=== PATIENT | female | born 1990 | race Caucasian/White ===

== ENCOUNTER 2019-06-06 18:20 | Emergency (ER) | payer SELFPAY ==
--- NOTE | 2019-06-06 19:44 | RAD REPORT ---
EXAM DESCRIPTION: CT - Facial Bones W/ Mpr - 06/06/2019 7:31 pm CLINICAL HISTORY: Facial injury TECHNIQUE: Computed axial tomography of the face was obtained. Coronal and sagittal reconstruction w as performed. All CT scans are performed using dose optimization technique as appropriate and may include automated exposure control or mA/KV adjustment according to patient size. FINDINGS: A fracture is not seen. A TMJ dislocation is not noted. Deviation of the nasal septum The globes are intact. Fluid within the sinuses is not seen. IMPRESSION: Negative for a facial fracture.
--- NOTE | 2019-06-06 19:49 | RAD REPORT ---
EXAM DESCRIPTION: CT - Head C Spine Mpr Wo Con - 06/06/2019 7:31 pm CLINICAL HISTORY: Head and neck injury status post fall. Head and neck pain COMPARISON: None. TECHNIQUE: Computed axial tomography of the head and cervical spine was obtained. Sagittal and coronal reconstruction was performed. All CT scans are performed using dose optimization technique as appropriate and may include automated exposure control or mA/KV adjustment according to patient size. FINDINGS: An intracranial bleed is not seen. The ventricles are normal in caliber. An extra-axial fl uid collection is not noted.Fluid within the visualized sinuses and mastoids is not seen A cervical fracture is not visualized. No dislocation is noted. Cerebellar tonsillar ectopia is prese nt IMPRESSION: No acute intracranial abnormality is seen. Cerebellar tonsillar ectopia A cervical fracture is not visualized. If the patient continues to have symptoms to suggest intracra nial /spinal cord pathology then MRI would be recommended
--- NOTE | 2019-06-06 20:00 | ER ---
Nurse's Notes [facility] Name: Cora Marquez Age: 29 yrs Sex: Female : 1990 Arrival Date: 06/06/2019 Time: 18:25 Bed 28 Private MD: Diagnosis: Unspecified injury of head;Jaw pain Presentation: 06/06 18:27 Presenting complaint: Patient states: i tripped over a cord and fell and hit a bed post hj and L side of the face and head and im not sure if i passed out but i blacked out for couple of seconds, my L jaw and inner ear hurts; pain is 9/10; denies N/V;. Transition of care: patient was not received from another setting of care. Onset of symptoms was June 06, 2019. Risk Assessment: Do you want to hurt yourself or someone else? Patient reports no desire to harm self or others. Initial Sepsis Screen: Does the patient meet any 2 criteria? No. Patient's initial sepsis screen is negative. Does the patient have a suspected source of infection? No. Patient's initial sepsis screen is negative. Care prior to arrival: None. 18:27 Method Of Arrival: Ambulatory 18:27 Acuity: MARYANA 3 18:30 Mechanism of Injury: Fall. Trauma event details: Injury occurred in the [place] [facility], Injury occurred: at home. Injury occurred: June 06, 2019 Injury occurred at: 18:15. Triage Assessment: 19:20 General: Appears in no apparent distress. Pain: Denies pain. 19:20 General: Behavior is calm, cooperative, appropriate for age. 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 - Social history:: Smoking status: Patient/guardian denies using tobacco. - Ebola Screening: : Patient negative for fever greater than or equal to 101.5 degrees Fahrenheit, and additional compatible Ebola Virus Disease symptoms Patient denies exposure to infectious person. Screenin:30 Abuse screen: Denies threats or abuse. Denies injuries from another. Nutritional wh screening: No deficits noted. Tuberculosis screening: No symptoms or risk factors identified. Fall Risk Fall in past 12 months (25 points). Assessment: 19:40 General: Appears in no apparent distress. Behavior is calm, cooperative, appropriate wh for age. Pain: Denies pain. 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 Cardiovascular: Capillary refill < 3 seconds. Respiratory: Airway is patent Respiratory effort is even, unlabored, Respiratory pattern is regular, symmetrical. GI: Abdomen is flat, non-distended. : No signs and/or symptoms were reported regarding the genitourinary system. EENT: No signs and/or symptoms were reported regarding the EENT system. Derm: Skin is intact, is healthy with good turgor, Skin is pink, warm \T\ dry. normal. Musculoskeletal: Range of motion: intact in all extremities. Vital Signs: 18:31 BP 105 / 65; Pulse 71; Resp 18; Temp 97.5(TE); Pulse Ox 100% on R/A; Weight 81.65 kg; Height 5 ft. 5 in. (165.10 cm); Pain 9/10; 19:15 BP 93 / 69; Pulse 65; Resp 18; Pulse Ox 98% on R/A; wh 18:31 Body Mass Index 29.95 (81.65 kg, 165.10 cm) ED Course: 18:25 Patient arrived in ED. mr 18:29 Triage completed. 18:30 Arm band placed on left wrist. 18:33 Vitaly Ronquillo PA is PHCP. [facility] 18:33 Felice Lyons MD is Attending Physician. [facility] 19:01 Santy Neal is Primary Nurse. 19:20 Patient has correct armband on for positive identification. Bed in low position. Call wh light in reach. Side rails up X 1. Pulse ox on. NIBP on. 19:31 CT Head C Spine In Process Unspecified. EDMS 19:31 CT Facial Bones W/O Con In Process Unspecified. EDMS 20:11 No provider procedures requiring assistance completed. Patient did not have IV access wh during this emergency room visit. Administered Medications: No medications were administered Outcome: 19:59 Discharge ordered by . robert 20:15 Patient left the ED. wh Signatures: Dispatcher [employer] EDMS Vitaly Ronquillo PA PA jmm RiveraRosa Maria mr Michael Eduardo RN RN Santy Means Corrections: (The following items were deleted from the chart) 18:32 18:31 Pulse 71bpm; Resp 18bpm; Pulse Ox 100% RA; Temp 97.5F Temporal; 81.65 kg; Height hj 5 ft. 5 in.; BMI: 29.9; Pain 9/10; hj
--- NOTE | 2019-06-06 20:00 | EDPHYS ---
Physician Documentation [facility] Name: Cora Marquez Age: 29 yrs Sex: Female : 1990 Arrival Date: 06/06/2019 Time: 18:25 Bed 28 Private MD: ED Physician Felice Lyons HPI: 06/06 18:50 This 29 yrs old Female presents to ER via Ambulatory with complaints of Fall jmm Injury, Headache. 18:50 Details of fall: The patient fell from an upright position, while walking. Onset: The jmm symptoms/episode began/occurred acutely, just prior to arrival. Associated injuries: The patient sustained injury to the head. The patient has not experienced similar symptoms in the past. Patient states she tripped hitting the left side of her head against a bed post. Unsure of LOC. . 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 - Social history:: Smoking status: Patient/guardian denies using tobacco. - Ebola Screening: : Patient negative for fever greater than or equal to 101.5 degrees Fahrenheit, and additional compatible Ebola Virus Disease symptoms Patient denies exposure to infectious person. ROS: 18:50 Constitutional: Negative for fever, chills, and weight loss, Cardiovascular: Negative jmm for chest pain, palpitations, and edema, Respiratory: Negative for shortness of breath, cough, wheezing, and pleuritic chest pain. 18:50 Back: Negative for injury and pain. 18:50 ENT: Positive for jaw pain. 18:50 Neuro: Positive for headache. 18:50 All other systems are negative. Exam: 18:50 ENT: Moist Mucus Membranes Neck: Trachea midline, Supple Chest/axilla: Normal chest jmm wall appearance and motion. Cardiovascular: Regular rate and rhythm. No edema appreciated Respiratory: Normal respirations, no respiratory distress appreciated Abdomen/GI: Non distended, soft Back: Normal ROM Skin: General appearance color normal MS/ Extremity: Moves all extremities, no obvious deformities appreciated, no edema noted to the lower extremities Neuro: Awake and alert, normal gait Psych: Behavior is normal, Mood is normal, Patient is cooperative and pleasant 18:50 Constitutional: The patient appears in no acute distress, alert, awake. 18:50 Head/face: left sided jaw pain on palpation, FROM appreciated, no obvious deformity appreciated. Vital Signs: 18:31 BP 105 / 65; Pulse 71; Resp 18; Temp 97.5(TE); Pulse Ox 100% on R/A; Weight 81.65 kg; hj Height 5 ft. 5 in. (165.10 cm); Pain 9/10; 19:15 BP 93 / 69; Pulse 65; Resp 18; Pulse Ox 98% on R/A; wh 18:31 Body Mass Index 29.95 (81.65 kg, 165.10 cm) hj MDM: 18:50 Patient medically screened. [facility] 19:57 Data reviewed: vital signs, nurses notes. Counseling: I had a detailed discussion with [facility] the patient and/or guardian regarding: the historical points, exam findings, and any diagnostic results supporting the discharge/admit diagnosis, radiology results, the need for outpatient follow up, to return to the emergency department if symptoms worsen or persist or if there are any questions or concerns that arise at home. ED course: Patient is alert and non toxic in appearance. No acute findings on CT. Patient is given head injury return precautions. Patient understood and agrees with the plan of care. . 06/06 18:58 Order name: CT Head C Spine; Complete Time: 19:55 [facility] 06/06 18:58 Order name: CT Facial Bones W/O Con; Complete Time: 19:55 [facility] Administered Medications: No medications were administered Disposition: 06/07 07:34 Co-signature as Attending Physician, Felice Lyons MD I agree with the assessment and kdr plan of care. Disposition: 06/06/19 19:59 Discharged to Home. Impression: Unspecified injury of head, Jaw pain. - Condition is Stable. - Discharge Instructions: Head Injury, Adult, Jaw Contusion. - Prescriptions for orphenadrine citrate 100 mg Oral Tablet Sustained Release - take 1 tablet by ORAL route 2 times per day As needed; 20 tablet. - Medication Reconciliation Form, Thank You Letter, Antibiotic Education, Prescription Opioid Use form. - Follow up: Private Physician; When: 2 - 3 days; Reason: Recheck today's complaints, Continuance of care, Re-evaluation by your physician. Signatures: Dispatcher [employer] EDMS Felice Lyons MD MD kdr Mickail, Joel, PA PA jmm Joaquin, Henry, RN RN Santy Neal Corrections: (The following items were deleted from the chart) 06/06 20:15 19:59 06/06/2019 19:59 Discharged to Home. Impression: Unspecified injury of head; Jaw wh pain. Condition is Stable. Forms are Medication Reconciliation Form, Thank You Letter, Antibiotic Education, Prescription Opioid Use. Follow up: Private Physician; When: 2 - 3 days; Reason: Recheck today's complaints, Continuance of care, Re-evaluation by your physician. robert
[2019-06-06 20:22] VITALS: TEMP 97.5
[2019-06-06 20:24] VITALS: BP 93/69; O2SAT 98
== END 2019-06-06 20:15 | disposition home or self-care (01) ==
LOC: ER 18:20
DX: S09.90XA Unspecified injury of head, initial encounter (principal); W01.190A Fall on same level from slipping, tripping and stumbling with subsequent striking against furniture, initial encounter; Y93.89 Activity, other specified; Y92.9 Unspecified place or not applicable; R68.84 Jaw pain; F41.9 Anxiety disorder, unspecified; F32.9 Major depressive disorder, single episode, unspecified; G40.909 Epilepsy, unspecified, not intractable, without status epilepticus; Z91.018 Allergy to other foods
CPT/HCPCS: 70450; 70486; 72125; 76377; 99283

== ENCOUNTER 2020-06-01 00:36 | Emergency (ER) | payer BC ==
--- OUTSIDE RECORDS SUMMARY | 2020-06-01 00:40 | XMS REPORT | Continuity of Care Document ---
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) Medications Medication Details Route Status Patient Ordering Order Source Instructions Provider Date Levetiracetam See Active [facility] 500 MG Oral Instructions 019 Neuro Tablet , TAKE 3 TABLETS BY MOUTH EVERY MORNING AND 4 TABLETS EVERY EVENING, # 210 tab, 5 Refill(s), Pharmacy: [facility] #[id number] lamotrigine 200 = 1 tab, PO, Active Mis vitor MG Oral Tablet BID, # 60 019 Neuro tab, 5 Refill(s), Pharmacy: [facility] #[id number] Escitalopram 20 20 mg = 1 Active Mische r MG Oral Tablet tab, PO, 019 Neuro [Lexapro] Daily, # 30 tab, 5 Refill(s), Pharmacy: [facility] #[id number] Levetiracetam See Active [facility] 500 MG Oral Instructions 019 Neuro Tablet , TAKE 3 TABLETS BY MOUTH EVERY MORNING AND 4 TABLETS BY MOUTH EVERY EVENING, # 210 tab, 6 Refill(s), Pharmacy: [facility] [id number] lamotrigine 200 See Active [facility] MG Oral Tablet Instructions 019 Neur o , TAKE 1 TABLET BY MOUTH TWICE DAILY, # 60 tab, 7 Refill(s), Pharmacy: [facility] [id number] Levetiracetam See No Longer [facility] 500 MG Oral Instructions Active 018 Neuro Tablet , # 210 tab, TAKE 3 TABLETS BY MOUTH EVERY MORNING AND 4 TABLETS BY MOUTH EVERY EVENING, Pharmacy: [facility] [id number] Levetiracetam See No Longer [facility] 500 MG Oral Instructions Active 018 Neuro Tablet , # 210 tab, Refill(s) 1, TAKE 3 TABLETS BY MOUTH EVERY MORNING AND 4 TABLETS BY MOUTH EVERY EVENING, Pharmacy: [facility] [id number] lamotrigine 200 See No Longer Mische r MG Oral Tablet Instructions Active 018 Neur o , # 214 tab, Refill(s) 1, TAKE 1 TABLET BY MOUTH TWICE DAILY, Pharmacy: [facility] [id number] Allergies, Adverse Reactions, Alerts Substance Category Reaction Severity Reaction Status Date Comments S ource type Reported No Known Assertion Drug Misch er Medication allergy Neuro Allergies Immunizations No Data Provided for This Section Results Order Name Results Value Reference Date Interpretation Comments Jaida rce Range CHEM PANEL BUN 12 7 - 25 12/15 Neuro CHEM PANEL Glucose Lvl 57 65 - 99 12/15 Result Comment: Neuro
Fasting reference interval<br/ >

Lab test performed by:
[facility]
[address]
[place] [address]<b r/>Arleen Davila CHEM PANEL ALANINE 12 6 - 29 12/15 [facility] AMINO Neuro ASE CHEM PANEL ASPARTATE 11 10 - 30 12/15cher TRANSAMINASE Neuro CHEM PANEL CO2 29 20 - 32 12/15 Mis Neuro CHEM PANEL Total Protein 7.0 6.1 - 8.1 12/15 Misch er /2018 Neuro CHEM PANEL Albumin Lvl 4.3 3.6 - 5.1 12/15 Neuro CHEM PANEL Creatinine 0.78 0.50 - 12/15 [facility] Lvl 1.10 Neuro CHEM PANEL eGFR NON-AFR. 104 > OR = 60 12/15 Misch er [place] mL/min/1. Neuro 3m2 CHEM PANEL eGFR 121 > OR = 60 12/15 Mische r [place] mL/min/1. Neuro 3m2 CHEM PANEL Globulin 2.7 1.9 - 3.7 12/15 [facility] Neuro CHEM PANEL A/G Ratio 1.6 1.0 - 2.5 12/15 [facility] Neuro CHEM PANEL Alk Phos 73 33 - 115 12/15 [facility] Neuro CHEM PANEL Bili Total 0.3 0.2 - 1.2 12/15 Neuro CHEM PANEL Sodium Lvl 140 135 - 146 12/15 Neuro CHEM PANEL B/C Ratio NOT 6 - 22 12/15cher Neuro CHEM PANEL Potassium Lvl 4.0 3.5 - 5.3 12/15 Misch Neuro CHEM PANEL Chloride Lvl 103 98 - 110 12/15 Neuro CHEM PANEL Calcium Lvl 9.4 8.6 - 10.2 12/15che r Neuro HEMATOLOGY Eosinophils 3.5 12/15 Neuro HEMATOLOGY Basophils 0.7 12/15 Neuro HEMATOLOGY Monocytes 6.5 12/15 Neuro HEMATOLOGY MCHC 33.3 32.0 - 12/15cher 36.0 Neuro HEMATOLOGY MCH 27.3 27.0 - 12/15cher 33. Neuro HEMATOLOGY RDW 14.4 11.0 - 12/15cher 15.0 Neuro HEMATOLOGY Platelet 234 140 - 400 12/15 Neuro HEMATOLOGY Neutrophils # 7137 1500 - 12/15cher 780 Neuro HEMATOLOGY Lymphocytes # 2775 850 - 3900 12/15 Misc Neuro HEMATOLOGY Monocytes # 722 200 - 950 12/15 Neuro HEMATOLOGY MPV 11.5 7.5 - 12.5 12/15 Neuro HEMATOLOGY Eosinophils # 389 15 - 500 12/15che Neuro HEMATOLOGY Basophils # 78 0 - 200 12/15 Neuro HEMATOLOGY WBC X 10x3 11.1 3.8 - 10.8 12/15 Result Comment: Neuro
Lab test performed by:
[facility]
[address]
[place] [address]<b r/>Arleen Davila HEMATOLOGY Lymphocytes 25.0 12/15 Neuro HEMATOLOGY Segs 64.3 12/15 Neuro HEMATOLOGY Hgb 14.1 11.7 - 12/15cher 15.5 Neuro HEMATOLOGY RBC X 10x6 5.16 3.80 - 12/15 [facility] 5.10 Neuro HEMATOLOGY MCV 82.2 80.0 - 12/15cher 100.0 Neuro HEMATOLOGY Hct 42.4 35.0 - 12/15 [facility] 45.0 /2019 Neuro TOXICOLOGY Lamotrigine 10.2 4.0 - 18.0 12/15 Result Mische r Lvl Comment: Neuro This test was developed and its analytical performance
charact eristics have been determined by [employer]
Cristian Chavez. It has not been cleared or approved by the [place]
Food and Drug Administrati on. This assay has been validated
purs uant to the CLIA regulations and is used for clinical
purpose s.
FASTI NG:YES
< br/>FASTING: YES

Lab test performed by:
[facility]<br/ >[id number] [place] [address]<b r/>Tenzin Soto M.D., Ph.D Pathology Reports No Data Provided for This Section Diagnostic Reports No Data Provided for This Section Consultation Notes No Data Provided for This Section Discharge Summaries No Data Provided for This Section History and Physicals No Data Provided for This Section Vital Signs Vital Sign Value Date Comments Source Systolic (mm Hg) 98 09/25/2019 [facility] [place] [place] Claire ro Diastolic (mm Hg) 69 09/25/2019 [facility] [place] [place] Ne uro Heart Rate 67 09/25/2019 [facility] [place] [place] Neuro Respitory Rate 16 09/25/2019 [facility] [place] [place] Neuro Height 170.18 cm 09/25/2019 [facility] [place] [place] Neuro Weight 89.545 09/25/2019 [facility] [place] [place] Neuro BMI Calculated 30.92 09/25/2019 [facility] [place] [place] Neuro Heart Rate 69 12/20/2018 [facility] [place] [place] Neuro Systolic (mm Hg) 103 12/20/2018 [facility] [place] [place] Claire ro Diastolic (mm Hg) 73 12/20/2018 [facility] [place] [place] Ne uro Weight 85.909 12/20/2018 [facility] [place] [place] Neuro BMI Calculated 31.52 12/20/2018 [facility] [place] [place] Neuro Height 165.1 cm 12/20/2018 [facility] [place] [place] Neuro Encounters Location Location Encounter Encounter Reason Attending ADM DC Stat us Source Details Type Number For Provider Date Date Visit Outpatient [id number] SAMUEL 06/08 Active [facility] [place] Outpatient [id number] SAMUEL 12/14 [facility] [place] [facility] Ambulatory [id number] Samuel 12/14 12/14 [facility] Out[facility] [id number] SAMUEL 12/20 Active [facility] [place] [facility] Outpatient [id number] Samuel 12/20 12/21 [facility] Outpatient [id number] SAMUEL 06/19 Active [facility] [place] [facility] Ambulatory [id number] Samuel 06/19 06/19 [facility] Pre-[facility] Outpatient [id number] Samuel 08/17 Active [facility] [place] [facility] [id number] Sma[facility]/17 [facility] [id number] Samuel 09/25 Active [facility] [place] [facility] [id number] Samuel 09/25 [facility] [id number] 12/28 12/30 [facility] Neurology Medical /2019 Neuro [facility] Outpatient [id number] Samuel 06/17 Active [facility] [place] Outpatient [id number] Samuel 06/17 Active [facility] [place] Procedures No Data Provided for This Section Assessment and Plan No Data Provided for This Section Plan of Care No Data Provided for This Section Social History Social History Date Source Social History TypeResponse 09/25/2019 [facility] Smoking Status Current every day smoker; Exposure to To bacco Smoke Unable to obtain; Cigarette Smoking Last 365 Days Yes; Reg Smoking Cessation Counseling No entered on: 09/25/19 Family History No Data Provided for This Section Advance Directives No Data Provided for This Section Functional Status No Data Provided for This Section
--- NOTE | 2020-06-01 02:02 | EDPHYS ---
Physician Documentation [facility] Name: Cora Marquez Age: 30 yrs Sex: Female : 1990 Arrival Date: 06/01/2020 Time: 00:41 Bed 5 Private MD: ED Physician Doug Hernandez HPI: 06/01 01:44 This 30 yrs old Female presents to ER via Ambulatory with complaints of rn Foreign Body In Throat. 01:44 The patient presents with dysphagia, a foreign body sensation in the throat. The rn patient describes throat pain as intermittent. Onset: The symptoms/episode began/occurred today. Severity of symptoms: At their worst the symptoms were mild, in the emergency department the symptoms are unchanged. Modifying factors: The symptoms are alleviated by nothing, the symptoms are aggravated by swallowing. The patient has not experienced similar symptoms in the past. The patient has not recently seen a physician. Reports eating sandwich, felt like got "caught up" in throat, no fever, and felt fine prior, reports noticed difficulty swallowing, no sob. Proceeded to stick finger in back of throat, felt "tissue", and noticed bleeding, so came in. No trauma. No prolonged sore throat/weight loss/hx of head and neck cancer in patient or family. . NUDE MODEL: 01:49 LMP 06/01/2020 rr5 Historical: - Allergies: 00:49 avocado; ss 00:49 olive extract; ss - Home Meds: 00:49 Keppra 1,000 mg Oral tab 1 tab every 12 hours [Active]; Lamictal 200 mg Oral tab 1 tab ss 2 times per day [Active]; - PMHx: 00:49 Anxiety; Depression; ocd; Seizures; ss - PSHx: 00:49 None; ss - Immunization history:: Adult Immunizations up to date. - Social history:: Smoking status: Patient reports the use of cigarette tobacco products, smokes one-half pack cigarettes per day. - Family history:: not pertinent. - Hospitalizations: : No recent hospitalization is reported. ROS: 01:44 Constitutional: Negative for fever, chills, and weight loss, Eyes: Negative for injury, rn pain, redness, and discharge, ENT: + foreign body sensation in throat Neck: Negative for injury, pain, and swelling, Cardiovascular: Negative for chest pain, palpitations, and edema, Respiratory: Negative for shortness of breath, cough, wheezing, and pleuritic chest pain, Abdomen/GI: Negative for abdominal pain, nausea, vomiting, diarrhea, and constipation, MS/Extremity: Negative for injury and deformity, Skin: Negative for injury, rash, and discoloration, Neuro: Negative for headache, weakness, numbness, tingling, and seizure. Exam: 01:44 Constitutional: This is a well developed, well nourished patient who is awake, alert, rn and in no acute distress. ENT: MMM, no stridor, Uvula midline and not swollen, right tonsil normal, left tonsil with tissue that appears friable and bleeding, seems to originate from left tonsil, adherent. Tolerating secretions and speaking normally. No signs of peritonsillar abscess. Vital Signs: 00:46 BP 124 / 76; Pulse 98; Resp 16; Temp 98.1(TE); Pulse Ox 98% on R/A; Weight 77.11 kg; ss Height 5 ft. 5 in. (165.10 cm); Pain 0/10; 01:49 BP 121 / 70; Pulse 90; Resp 17; Pulse Ox 99% on R/A; rr5 02:22 BP 96 / 62; Pulse 80; Resp 16; Pulse Ox 98% on R/A; rr5 00:46 Body Mass Index 28.29 (77.11 kg, 165.10 cm) ss MDM: 00:42 Patient medically screened. rn 01:44 Differential diagnosis: tonsillitis, tonsillar stone/giant tonsillolith, cancer/tumor. rn Data reviewed: vital signs, nurses notes. 01:59 Counseling: I had a detailed discussion with the patient and/or guardian regarding: the rn historical points, exam findings, and any diagnostic results supporting the discharge/admit diagnosis, lab results, the need for outpatient follow up, to return to the emergency department if symptoms worsen or persist or if there are any questions or concerns that arise at home. Special discussion: I discussed with the patient/guardian in detail that at this point there is no indication for admission to the hospital. It is understood, however, that if the symptoms persist or worsen the patient needs to return immediately for re-evaluation. Based on the history and exam findings, there is no indication for further emergent testing or inpatient evaluation. I discussed with the patient/guardian the need to see the ENT specialist for further evaluation of the symptoms. ED course: + Strep, chooses IM bicillin instead of oral abx, mass most likely giant tonsillolith or inflammatory changes from tonsillitis, friable and bleeding, told patient will not pull off or attempt here without ENT, but also does not need emergent ENT consultation. Will f/u with ENT, return precautions given and understood. . 06/01 01:19 Order name: Strep; Complete Time: 01:52 ss Administered Medications: 02:00 Drug: Bicillin L-A 1.2 million units Route: IM; Site: left gluteus; rr5 02:23 Follow up: Response: No adverse reaction rr5 Disposition: 06/01/20 02:01 Discharged to Home. Impression: Streptococcal tonsillitis, Tonsillolith. - Condition is Stable. - Discharge Instructions: Strep Throat. - Medication Reconciliation Form, Thank You Letter, Antibiotic Education, Prescription Opioid Use form. - Follow up: Sugey Vizcarra MD; When: As needed; Reason: Recheck today's complaints, Re-evaluation by your physician. - Problem is new. - Symptoms have improved. Signatures: Dispatcher [employer] EDMS Doug Hernandez MD MD rn Smirch, Shelby, RN RN ss Roque, Raymond, RN RN rr5 Corrections: (The following items were deleted from the chart) 02:23 02:01 06/01/2020 02:01 Discharged to Home. Impression: Streptococcal tonsillitis; rr5 Tonsillolith. Condition is Stable. Forms are Medication Reconciliation Form, Thank You Letter, Antibiotic Education, Prescription Opioid Use. Follow up: Sugey Vizcarra; When: As needed; Reason: Recheck today's complaints, Re-evaluation by your physician. Problem is new. Symptoms have improved. rn
--- NOTE | 2020-06-01 02:02 | ER ---
Nurse's Notes [facility] Name: Cora Marquez Age: 30 yrs Sex: Female : 1990 Arrival Date: 06/01/2020 Time: 00:41 Bed 5 Private MD: Diagnosis: Streptococcal tonsillitis;Tonsillolith Presentation: 06/01 00:46 Chief complaint: Patient states: "I was eating a sandwich at home and then I kept ss having to clear my throat like there was something in it. I looked and it was like tissue. I reached my finger in there to try to get it but it won't come out.". Coronavirus screen: Proceed with normal triage. Patient denies a cough. Patient denies shortness of breath or difficulty breathing. Patient denies measured and/or subjective temperature greater than 100.4F prior to today's visit. Patient denies travel on a cruise ship or to a country the [facility] currently lists as an affected area. Patient denies contact with known and/or suspected case of COVID-19. Ebola Screen: Patient denies exposure to infectious person. Patient denies travel to an Ebola-affected area in the 21 days before illness onset. Initial Sepsis Screen: Does the patient meet any 2 criteria? No. Patient's initial sepsis screen is negative. Does the patient have a suspected source of infection? No. Patient's initial sepsis screen is negative. Risk Assessment: Do you want to hurt yourself or someone else? Patient reports no desire to harm self or others. Onset of symptoms was June 01, 2020. 00:46 Method Of Arrival: Ambulatory ss 00:46 Acuity: MARYANA 4 ss DIRECTOR INFORMATION: 01:49 LMP 06/01/2020 rr5 Historical: - Allergies: 00:49 avocado; ss 00:49 olive extract; ss - Home Meds: 00:49 Keppra 1,000 mg Oral tab 1 tab every 12 hours [Active]; Lamictal 200 mg Oral tab 1 tab ss 2 times per day [Active]; - PMHx: 00:49 Anxiety; Depression; ocd; Seizures; ss - PSHx: 00:49 None; ss - Immunization history:: Adult Immunizations up to date. - Social history:: Smoking status: Patient reports the use of cigarette tobacco products, smokes one-half pack cigarettes per day. - Family history:: not pertinent. - Hospitalizations: : No recent hospitalization is reported. Screenin:45 Abuse screen: Denies threats or abuse. Denies injuries from another. Nutritional rr5 screening: No deficits noted. Tuberculosis screening: No symptoms or risk factors identified. Fall Risk None identified. Total Cazares Fall Scale indicates No Risk (0-24 pts). Assessment: 00:50 General: Appears in no apparent distress. uncomfortable, Behavior is calm, cooperative, rr5 appropriate for age. Pain: Denies pain. Neuro: Level of Consciousness is awake, alert, obeys commands, Oriented to person, place, time, situation. Cardiovascular: Capillary refill < 3 seconds Patient's skin is warm and dry. Respiratory: Airway is patent Respiratory effort is even, unlabored, Respiratory pattern is regular, symmetrical. GI: No signs and/or symptoms were reported involving the gastrointestinal system. : No signs and/or symptoms were reported regarding the genitourinary system. EENT: Throat is reddened has enlarged tonsils on left with gag reflex present, redness noted. Reports something on my throat. Derm: Skin is intact, is healthy with good turgor, Skin temperature is warm. Musculoskeletal: Circulation, motion, and sensation intact. Capillary refill < 3 seconds. 01:48 Reassessment: Patient appears in no apparent distress at this time. Patient is alert, rr5 oriented x 3, equal unlabored respirations, skin warm/dry/pink. awaiting for strep result. 02:22 Reassessment: Patient appears in no apparent distress at this time. Patient is alert, rr5 oriented x 3, equal unlabored respirations, skin warm/dry/pink. discharge instruction given and explained without complaints made. Vital Signs: 00:46 BP 124 / 76; Pulse 98; Resp 16; Temp 98.1(TE); Pulse Ox 98% on R/A; Weight 77.11 kg; Height 5 ft. 5 in. (165.10 cm); Pain 0/10; 01:49 BP 121 / 70; Pulse 90; Resp 17; Pulse Ox 99% on R/A; rr5 02:22 BP 96 / 62; Pulse 80; Resp 16; Pulse Ox 98% on R/A; rr5 00:46 Body Mass Index 28.29 (77.11 kg, 165.10 cm) ED Course: 00:41 Patient arrived in ED. bp1 00:41 Thomas Castro, RN is Primary Nurse. rr5 00:42 Doug Hernandez MD is Attending Physician. rn 00:45 Patient has correct armband on for positive identification. Bed in low position. Call rr5 light in reach. 00:49 Triage completed. ss 00:49 Arm band placed on right wrist. ss 01:30 Strep swab sent to lab. rr5 02:00 Sugey Vizcarra MD is Referral Physician. rn 02:23 No provider procedures requiring assistance completed. Patient did not have IV access rr5 during this emergency room visit. Administered Medications: 02:00 Drug: Bicillin L-A 1.2 million units Route: IM; Site: left gluteus; rr5 02:23 Follow up: Response: No adverse reaction rr5 Outcome: 02:01 Discharge ordered by MD. rn 02:23 Discharged to home ambulatory. rr5 02:23 Condition: stable 02:23 Discharge instructions given to patient, Instructed on discharge instructions, follow up and referral plans. Demonstrated understanding of instructions, follow-up care. 02:23 Patient left the ED. rr5 Signatures: Doug Hernandez MD MD rn Smirch, Shelby, RN RN Thomas Castro, RAFAL RN rr5 [place] bp1
[2020-06-01] MEDS ORDERED: PEN G BENZ LA 1.2MU/2ML SYRINGE IM ONE (02:11)
[2020-06-01 02:28] VITALS: TEMP 98.1
[2020-06-01 02:30] VITALS: BP 96/62; O2SAT 98
== END 2020-06-01 02:23 | disposition home or self-care (01) ==
LOC: ER 00:36
DX: J03.00 Acute streptococcal tonsillitis, unspecified (principal); J35.8 Other chronic diseases of tonsils and adenoids; F17.210 Nicotine dependence, cigarettes, uncomplicated; G40.909 Epilepsy, unspecified, not intractable, without status epilepticus; Z91.018 Allergy to other foods
CPT/HCPCS: 87081; 96372; 99283; J0561

== ENCOUNTER 2020-08-26 12:48 | Emergency (ER) | payer BC ==
[2020-08-26 14:42] LABS: Absolute Lymphocytes (CBC) 2.6 K/uL (0.7-4.9); Basophils % 0.7 % (0-1.3); Hematocrit 42.9 % (36.0-45.0); Lymphocytes % 26.5 % (15.3-44.8); MPV 9.2 fL (7.6-11.3); RBC Red Blood Cell Count 4.87 M/uL (3.86-4.86)
[2020-08-26 14:59] LABS: Albumin 3.7 g/dL (3.4-5.0); Bilirubin Total 0.2 mg/dL (0.2-1.0); Potassium 3.2 mmol/L (3.5-5.1)
[2020-08-26] MEDS ORDERED: METOCLOPRAMIDE 10 MG/2mL INJ ONE (15:00)
[2020-08-26] MEDS ORDERED: NA CHLORIDE 0.9% 1,000 ML ONE ×2 (15:00→17:56)
[2020-08-26] MEDS ORDERED: LIDOCAINE 1% 20 ML MDV ONE (15:00)
[2020-08-26] MEDS ORDERED: DIPHENHYDRAMINE 50 MG/ML VIAL ONE (15:00)
[2020-08-26 16:53] LABS: CSF Glucose 58 mg/dL (40-70)
[2020-08-26 17:25] LABS: Appearance CLEAR (CLEAR); Body Fluid Source CSF; Color of fluid Colorless (COLORLESS); Fluid Total Volume 6.5 ml
[2020-08-26 17:26] LABS: Body Fluid WBC 3 /mm^3
[2020-08-26 17:27] LABS: Appearance CLEAR (CLEAR); Body Fluid Source CSF; Body Fluid WBC 3 /mm^3; Color of fluid Colorless (COLORLESS)
[2020-08-26] MEDS ORDERED: PEN G BENZ LA 1.2MU/2ML SYRINGE IM ONE (17:55)
[2020-08-26] MEDS ORDERED: POTASSIUM 25 MEQ EFFERV TAB ONE (17:55)
--- NOTE | 2020-08-26 17:56 | EDPHYS ---
Physician Documentation [facility] Name: Cora Marquez Age: 30 yrs Sex: Female : 1990 Arrival Date: 08/26/2020 Time: 12:50 Bed 20 Private MD: DONNIE Physician Nathan Landon HPI: 08/26 14:02 This 30 yrs old Female presents to ER via Ambulatory with complaints of jmm Headache > 24hrs Old, Fever, Nausea, Abdominal Pain. 14:02 The patient complains of pain to the forehead. Onset: The symptoms/episode jmm began/occurred gradually, 2 day(s) ago. Associated signs and symptoms: Pertinent positives: diarrhea. Headache History: Denies prior headaches. The symptoms are alleviated by nothing. the symptoms are aggravated by nothing. The patient has not experienced similar symptoms in the past. Advised by her Neurologist to get LP for further evaluation. 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 - Social history:: Smoking status: Patient reports the use of cigarette tobacco products, smokes one-half pack cigarettes per day. ROS: 14:02 Constitutional: Negative for fever, chills, and weight loss, Cardiovascular: Negative jmm for chest pain, palpitations, and edema, Respiratory: Negative for shortness of breath, cough, wheezing, and pleuritic chest pain. 14:02 Abdomen/GI: Positive for diarrhea. 14:02 Neuro: Positive for headache. Exam: 14:02 Constitutional: This is a well developed, well nourished patient who is awake, alert, jmm and in no acute distress. Head/Face: atraumatic. Eyes: EOMI, no conjunctival erythema appreciated ENT: Moist Mucus Membranes Neck: Trachea midline, Supple Chest/axilla: Normal chest wall appearance and motion. Cardiovascular: Regular rate and rhythm. No edema appreciated Respiratory: Normal respirations, no respiratory distress appreciated Abdomen/GI: Non distended, soft Back: Normal ROM Skin: General appearance color normal MS/ Extremity: Moves all extremities, no obvious deformities appreciated, no edema noted to the lower extremities Neuro: Awake and alert, normal gait Psych: Behavior is normal, Mood is normal, Patient is cooperative and pleasant Vital Signs: 13:01 BP 107 / 62; Pulse 69; Resp 16 S; Temp 98.4(O); Pulse Ox 99% on R/A; Weight 81.65 kg ca1 (R); Height 5 ft. 5 in. (165.10 cm) (R); Pain 9/10; 16:40 BP 110 / 78; Pulse 63; Resp 18; Pulse Ox 100% ; rb1 13:01 Body Mass Index 29.95 (81.65 kg, 165.10 cm) ca1 Procedures: 16:55 Lumbar Puncture: Patient placed in right lateral decubitus position. clear fluid. [facility] Puncture site dressed with band aid, Patient tolerated well. MDM: 14:02 Patient medically screened. [facility] 17:55 Data reviewed: vital signs, nurses notes, lab test result(s), and as a result, I will cp discharge patient. 17:55 Counseling: I had a detailed discussion with the patient and/or guardian regarding: the cp historical points, exam findings, and any diagnostic results supporting the discharge/admit diagnosis, lab results, to return to the emergency department if symptoms worsen or persist or if there are any questions or concerns that arise at home. Response to treatment: the patient's symptoms have markedly improved after treatment, and as a result, I will discharge patient. ED course: VSS. Headache improved with meds. Will discharge to home for continued monitoring. 08/26 14:03 Order name: CBC with Diff; Complete Time: 14:50 [facility] 08/26 14:03 Order name: CMP; Complete Time: 14:59 [facility] 08/26 14:03 Order name: CSF Bacterial Antigens (tube 1); Complete Time: 16:54 [facility] 08/26 14:03 Order name: Csf Culture [facility] 08/26 14:03 Order name: Fluid Cell Count,Body; Complete Time: 17:28 [facility] 08/26 14:03 Order name: Spinal Fluid Profile; Complete Time: 17:28 [facility] 08/26 14:05 Order name: Miller Screen Profile; Complete Time: 15:48 [facility] 08/26 14:05 Order name: Strep; Complete Time: 16:05 [facility] 08/26 14:03 Order name: LP Consents; Complete Time: 14:59 [facility] 08/26 14:03 Order name: LP Setup; Complete Time: 14:59 [facility] Administered Medications: 14:55 Drug: NS 0.9% 1000 ml Route: IV; Rate: 1 bolus; Site: right antecubital; rb1 16:09 Follow up: IV Status: Completed infusion rb1 14:55 Drug: Reglan 10 mg Route: IVP; Site: right antecubital; rb1 15:12 Follow up: Response: No adverse reaction rb1 14:59 Not Given (Patient Refused; Provider notified): diphenhydrAMINE 12.5 mg IVP once rb1 15:04 Drug: Lidocaine (1 %) 20 ml Volume: 20 ml; Route: Infiltration; rb1 17:50 Drug: Bicillin L-A 1.2 million units Route: IM; Site: left gluteus; rb1 18:10 Follow up: Response: No adverse reaction rb1 17:50 Drug: Potassium Effervescent Tablet 50 mEq Route: PO; rb1 18:10 Follow up: Response: No adverse reaction rb1 17:59 Not Given (Cancelled by NUPUR Chacon): NS 0.9% 1000 ml IV at 1 bolus Per protocol; 1000 mL rb1 bolus Disposition: 08/27 08:08 Co-signature as Attending Physician, Nathan Landon MD I agree with the assessment and [place] plan of care. Disposition: 08/26/20 17:55 Discharged to Home. Impression: Hypokalemia, Headache, Streptococcal pharyngitis, Infectious mononucleosis, unspecified. - Condition is Stable. - Discharge Instructions: Potassium Content of Foods, General Headache Without Cause, Infectious Mononucleosis, Strep Throat, Hypokalemia. - Prescriptions for Keflex 500 mg Oral Capsule - take 1 capsule by ORAL route every 8 hours for 10 days; 30 capsule. Ibuprofen 800 mg Oral Tablet - take 1 tablet by ORAL route every 8 hours As needed take with food; 30 tablet. - Medication Reconciliation Form, Thank You Letter, Antibiotic Education, Prescription Opioid Use form. - Follow up: Private Physician; When: 1 - 2 days; Reason: Recheck today's complaints. - Problem is new. - Symptoms have improved. Signatures: Dispatcher [employer] [facility] Nathan Landon MD MD cha Mickail, Joel, PA PA jmm Page, Corey, PA PA cp Barber, Rebecca, RN RN rb1 Jay, Corie RN RN ca1 Corrections: (The following items were deleted from the chart) 08/26 14:34 14:06 MONO SCREEN PROFILE+[id number] ordered. [facility] 18:36 17:55 08/26/2020 17:55 Discharged to Home. Impression: Hypokalemia; Headache; rb1 Streptococcal pharyngitis; Infectious mononucleosis, unspecified. Condition is Stable. Forms are Medication Reconciliation Form, Thank You Letter, Antibiotic Education, Prescription Opioid Use. Follow up: Private Physician; When: 1 - 2 days; Reason: Recheck today's complaints. Problem is new. Symptoms have improved. cp
--- NOTE | 2020-08-26 17:56 | ER ---
Nurse's Notes [facility] Name: Cora Marquez Age: 30 yrs Sex: Female : 1990 Arrival Date: 08/26/2020 Time: 12:50 Bed 20 Private MD: Diagnosis: Hypokalemia;Headache;Streptococcal pharyngitis;Infectious mononucleosis, unspecified Presentation: 08/26 13:01 Chief complaint: Patient states: Headache, no history of migraine x 3 days. Took Aleve, ca1 Tylenol, Ibuprofen, no relief. Abdominal pain, diffuse, nausea, diarrhea, fever since yesterday. Denies cough. Coronavirus screen: Client denies travel out of the [place] in the last 14 days. diarrhea, fever, headache, nausea, loss of taste or smell, The client reports previous COVID testing was negative. Date of collection: May 2020. Coronavirus screen: Client presents with at least one sign or symptom that may indicate coronavirus-19. Standard/surgical mask placed on the client. Provider contacted for isolation considerations. Ebola Screen: Patient negative for fever greater than or equal to 101.5 degrees Fahrenheit, and additional compatible Ebola Virus Disease symptoms. Initial Sepsis Screen: Does the patient meet any 2 criteria? No. Patient's initial sepsis screen is negative. Does the patient have a suspected source of infection? No. Patient's initial sepsis screen is negative. Risk Assessment: Do you want to hurt yourself or someone else? Patient reports no desire to harm self or others. Onset of symptoms was August 26, 2020. 13:01 Method Of Arrival: Ambulatory ca1 13:01 Acuity: MARYANA 3 ca1 Triage Assessment: 13:55 Pain: Also complains of nausea. rb1 DIRECTOR CLIENT SERVICES: 13:07 LMP 08/19/2020 ca1 Historical: - Allergies: 13:07 avocado; ca1 13:07 olive extract; ca1 - Home Meds: 13:07 Keppra 1500 mg Oral 1 tab every morning [Active]; Keppra 2000 mg Oral tab nightly ca1 [Active]; Lamictal 200 mg Oral tab 1 tab 2 times per day [Active]; Lexapro 20 mg Oral tab 1 tab once daily [Active]; - PMHx: 13:07 Anxiety; Depression; ocd; Seizures; ca1 - PSHx: 13:07 ; Tubal ligation; ca1 - Immunization history:: Adult Immunizations up to date. - Social history:: Smoking status: Patient reports the use of cigarette tobacco products, smokes one-half pack cigarettes per day. Screenin:55 Abuse screen: Denies threats or abuse. Nutritional screening: No deficits noted. rb1 Tuberculosis screening: No symptoms or risk factors identified. Fall Risk None identified. Assessment: 13:55 General: Appears in no apparent distress. comfortable, Behavior is calm, cooperative. rb1 Pain: Complains of pain in head and abdomen Pain began headache x 3 days. Neuro: Level of Consciousness is awake, alert, obeys commands, Oriented to person, place, time, situation. Cardiovascular: Patient's skin is warm and dry. Respiratory: Airway is patent Respiratory effort is even, unlabored, Respiratory pattern is regular, symmetrical. Respiratory: Denies cough. GI: Reports diarrhea, nausea, since x 1 day. : No signs and/or symptoms were reported regarding the genitourinary system. 14:52 Reassessment: Patient appears in no apparent distress at this time. Patient and/or rb1 family updated on plan of care and expected duration. Pain level reassessed. Patient is alert, oriented x 3, equal unlabored respirations, skin warm/dry/pink. 15:50 Reassessment: Patient appears in no apparent distress at this time. No changes from rb1 previously documented assessment. 16:43 Reassessment: Patient appears in no apparent distress at this time. Pt. is talking on rb1 her cell phone. 17:40 Reassessment: Patient appears in no apparent distress at this time. Patient and/or rb1 family updated on plan of care and expected duration. Pain level reassessed. Patient is alert, oriented x 3, equal unlabored respirations, skin warm/dry/pink. Patient states feeling better. Vital Signs: 13:01 BP 107 / 62; Pulse 69; Resp 16 S; Temp 98.4(O); Pulse Ox 99% on R/A; Weight 81.65 kg ca1 (R); Height 5 ft. 5 in. (165.10 cm) (R); Pain 9/10; 16:40 BP 110 / 78; Pulse 63; Resp 18; Pulse Ox 100% ; rb1 13:01 Body Mass Index 29.95 (81.65 kg, 165.10 cm) ca1 ED Course: 12:50 Patient arrived in ED. ag5 13:05 Triage completed. ca1 13:07 Arm band placed on right wrist. ca1 13:55 Vitaly Ronquillo PA is PHCP. jmm 13:55 Nathan Landon MD is Attending Physician. jmm 13:55 Patient has correct armband on for positive identification. Bed in low position. Call rb1 light in reach. Side rails up X 1. Pulse ox on. NIBP on. Warm blanket given. 14:18 Alyssa Curry, RN is Primary Nurse. rb1 14:33 Strep Sent. dh4 14:34 CMP Sent. dh4 14:34 CBC with Diff Sent. dh4 14:40 Inserted saline lock: 20 gauge in right antecubital area, using aseptic technique. dh4 Blood collected. 17:03 PHCP role handed off by Vitaly Ronquillo PA cp 17:03 Nathan Chacon PA is PHCP. cp 18:25 No provider procedures requiring assistance completed. IV discontinued, intact, rb1 bleeding controlled, No redness/swelling at site. Pressure dressing applied. Administered Medications: 14:55 Drug: NS 0.9% 1000 ml Route: IV; Rate: 1 bolus; Site: right antecubital; rb1 16:09 Follow up: IV Status: Completed infusion rb1 14:55 Drug: Reglan 10 mg Route: IVP; Site: right antecubital; rb1 15:12 Follow up: Response: No adverse reaction rb1 14:59 Not Given (Patient Refused; Provider notified): diphenhydrAMINE 12.5 mg IVP once rb1 15:04 Drug: Lidocaine (1 %) 20 ml Volume: 20 ml; Route: Infiltration; rb1 17:50 Drug: Bicillin L-A 1.2 million units Route: IM; Site: left gluteus; rb1 18:10 Follow up: Response: No adverse reaction rb1 17:50 Drug: Potassium Effervescent Tablet 50 mEq Route: PO; rb1 18:10 Follow up: Response: No adverse reaction rb1 17:59 Not Given (Cancelled by NUPUR Chacon): NS 0.9% 1000 ml IV at 1 bolus Per protocol; 1000 mL rb1 bolus Outcome: 17:55 Discharge ordered by . cp 18:25 Patient left the ED. rb1 18:25 Discharged to home ambulatory. rb1 18:25 Condition: stable 18:25 Discharge instructions given to patient, Instructed on discharge instructions, follow up and referral plans. medication usage, Demonstrated understanding of instructions, follow-up care, medications, Prescriptions given X 2. Signatures: Vitaly Ronquillo PA PA jmm Page, Corey, PA PA cp Barber, Rebecca, RN RN rb1 Corie Thompson RN RN ca1 Morgan Jurado [facility] Sarath Rivera formerly [facility] Corrections: (The following items were deleted from the chart) 14:34 14:33 MONO SCREEN PROFILE+I.LAB.BRZ drawn and sent. 4 EDMS 18:39 18:36 Patient left the ED. rb1 rb1
[2020-08-26 18:52] VITALS: TEMP 98.4
[2020-08-26 18:53] VITALS: BP 110/78; O2SAT 100
== END 2020-08-26 18:36 | disposition home or self-care (01) ==
LOC: ER 12:48
PROC: 009U3ZX Drainage of Spinal Canal, Percutaneous Approach, Diagnostic (ICD-10-PCS; principal; 2020-08-26)
DX: B27.90 Infectious mononucleosis, unspecified without complication (principal); E87.6 Hypokalemia; J02.0 Streptococcal pharyngitis; G40.909 Epilepsy, unspecified, not intractable, without status epilepticus; F41.8 Other specified anxiety disorders; F17.210 Nicotine dependence, cigarettes, uncomplicated; Z91.018 Allergy to other foods
CPT/HCPCS: 96361; 87070; 85025; 36415; 89050 ×2; 86308; 84157; 82945; 87081; 86403 ×6; 80053; 62270 ×2; 96372; 96374; 99284; J2765; J0561; J7030 ×2; J1200

== ENCOUNTER 2021-05-02 17:09 | Emergency (ER) | payer BC ==
[2021-05-02] MEDS ORDERED: LEVALBUTEROL 1.25 MG/3 ML NEB ONE (18:03)
--- NOTE | 2021-05-02 18:51 | RAD REPORT ---
EXAM DESCRIPTION: RAD - Chest Single View - 05/02/2021 6:42 pm CLINICAL HISTORY: fever, cough, sob Chest pain. COMPARISON: No comparisons FINDINGS: Portable technique limits examination quality. The lungs are grossly clear. The heart is normal in size. No displaced fractures. IMPRESSION: No acute intrathoracic process suspected.
[2021-05-02 19:03] LABS: SARS-COV-2 RT PCR NEGATIVE (NEGATIVE)
--- NOTE | 2021-05-02 19:44 | ER ---
Nurse's Notes [facility] Name: Cora Marquez Age: 31 yrs Sex: Female : 1990 Arrival Date: 05/02/2021 Time: 17:15 Bed 23 Private MD: Diagnosis: Acute upper respiratory infection, unspecified;Acute pharyngitis Presentation: 05/02 17:19 Chief complaint: Patient states: cough, congestion, and sore throat that began 2 days aa5 ago. Coronavirus screen: cough unrelated to allergies, sore throat. Ebola Screen: Patient negative for fever greater than or equal to 101.5 degrees Fahrenheit, and additional compatible Ebola Virus Disease symptoms. Initial Sepsis Screen: Does the patient meet any 2 criteria? No. Patient's initial sepsis screen is negative. Does the patient have a suspected source of infection? No. Patient's initial sepsis screen is negative. Risk Assessment: Do you want to hurt yourself or someone else? Patient reports no desire to harm self or others. Onset of symptoms was April 2021. 17:19 Method Of Arrival: Ambulatory aa5 17:19 Acuity: MARYANA 4 aa5 Triage Assessment: 19:50 General: Appears in no apparent distress. Respiratory: Onset: The symptoms/episode zb began/occurred yesterday, the patient has mild shortness of breath. Historical: - Allergies: 17:21 avocado; aa5 17:21 olive extract; aa5 - Home Meds: 17:21 Keppra 1500 mg Oral 1 tab every morning [Active]; Keppra 2000 mg Oral tab nightly aa5 [Active]; Lamictal 200 mg Oral tab 1 tab 2 times per day [Active]; Lexapro 20 mg Oral tab 1 tab once daily [Active]; - PMHx: 17:21 Anxiety; Depression; ocd; Seizures; aa5 - PSHx: 17:21 ; Tubal ligation; aa5 - Immunization history:: Adult Immunizations unknown. - Social history:: Smoking status: Patient reports the use of cigarette tobacco products, smokes one-half pack cigarettes per day. Screenin:49 Abuse screen: Denies threats or abuse. Denies injuries from another. Nutritional zb screening: No deficits noted. Tuberculosis screening: No symptoms or risk factors identified. Fall Risk None identified. Assessment: 17:50 General: Appears in no apparent distress. comfortable, Behavior is calm, cooperative, zb appropriate for age, Reports fever for 1-2 days, feeling ill for 2-3 days, fatigue for 2-3 days. Pain: Denies pain. Neuro: Level of Consciousness is awake, alert, obeys commands, Oriented to person, place, time. Cardiovascular: Heart tones S1 S2 present Capillary refill < 3 seconds Patient's skin is warm and dry. Rhythm is regular. Respiratory: Reports shortness of breath at rest cough that is non-productive, hacking, persistent Airway is patent Respiratory effort is even, unlabored, Breath sounds are clear. GI: Abdomen is round. Derm: Skin is intact, is healthy with good turgor, Skin is normal. Musculoskeletal: Range of motion:. 18:58 Reassessment: Patient appears in no apparent distress at this time. Patient and/or zb family updated on plan of care and expected duration. Pain level reassessed. Patient is alert, oriented x 3, equal unlabored respirations, skin warm/dry/pink. pt states she feels the same. Patient states symptoms have not improved. 19:49 Reassessment: Patient appears in no apparent distress at this time. Patient and/or zb family updated on plan of care and expected duration. Pain level reassessed. Patient is alert, oriented x 3, equal unlabored respirations, skin warm/dry/pink. d/c instructions given by charge master analyst. no changes at this time. patient up at [facility]. 19:51 Reassessment: Patient is alert, oriented x 3, equal unlabored respirations, skin bb warm/dry/pink. pt verbalized understanding of and agrees to plan of care discharge instructions given pt ambulated with steady gait to exit. Vital Signs: 17:19 BP 112 / 51; Pulse 92; Resp 18 S; Temp 98.0(TE); Pulse Ox 97% on R/A; Weight 83.91 kg aa5 (R); Height 5 ft. 5 in. (165.10 cm) (R); 18:58 BP 110 / 74; Pulse 99; Resp 16; Pulse Ox 96% on R/A; zb 19:51 BP 114 / 80; Pulse 111; Resp 18 S; Temp 98.2(O); Pulse Ox 98% on R/A; bb 17:19 Body Mass Index 30.79 (83.91 kg, 165.10 cm) [facility] ED Course: 17:15 Patient arrived in ED. mr 17:19 Arm band placed on. aa 17:20 Triage completed. [facility] 17:25 Vitaly Ronquillo PA is PHCP. [facility] 17:25 Nathan Landon MD is Attending Physician. [facility] 17:30 Sarah Mora, RN is Primary Nurse. zb 18:42 Chest Single View XRAY In Process Unspecified. EDMS 19:49 No provider procedures requiring assistance completed. Patient did not have IV access zb during this emergency room visit. 19:50 Patient has correct armband on for positive identification. Bed in low position. Call zb light in reach. nurse monitoring on. Pulse ox on. NIBP on. Door closed. Noise minimized. Administered Medications: 17:50 Drug: Xopenex (levalbuterol) (3) 1.25 mg Route: Inhalation; zb 18:35 Follow up: Response: No adverse reaction; No change in condition zb Outcome: 19:44 Discharge ordered by . jm 19:51 Discharged to home ambulatory. zb 19:51 Condition: stable 19:51 Discharge instructions given to patient, Instructed on discharge instructions, follow up and referral plans. medication usage, Demonstrated understanding of instructions, follow-up care, medications, Prescriptions given X 3. 19:51 Patient left the ED. zb Signatures: Dispatcher [employer] EDSD Vitaly Ronquillo PA PA [facility] Rosa Maria Munson mr GeorgeDina RN RAFAL Kayli Cline RN RN [facility] Sarah Mora RN RN zb
--- NOTE | 2021-05-02 19:45 | EDPHYS ---
Physician Documentation [facility] Name: Cora Marquez Age: 31 yrs Sex: Female : 1990 Arrival Date: 05/02/2021 Time: 17:15 Bed 23 Private MD: ED Physician Nathan Landon HPI: 05/02 17:29 This 31 yrs old Female presents to ER via Ambulatory with complaints of Cough.jmm 17:29 The patient or guardian reports cough. Onset: The symptoms/episode began/occurred jmm gradually, 2 day(s) ago. Modifying factors: The symptoms are alleviated by nothing, the symptoms are aggravated by nothing. Associated signs and symptoms: Pertinent positives: fever, sore throat. This is a 31 year old female with a history of epilepsy that presents to the ED with complaints of of cough, sore throat, fever, congestion. . Historical: - Allergies: 17:21 avocado; aa5 17:21 olive extract; aa5 - Home Meds: 17:21 Keppra 1500 mg Oral 1 tab every morning [Active]; Keppra 2000 mg Oral tab nightly aa5 [Active]; Lamictal 200 mg Oral tab 1 tab 2 times per day [Active]; Lexapro 20 mg Oral tab 1 tab once daily [Active]; - PMHx: 17:21 Anxiety; Depression; ocd; Seizures; aa5 - PSHx: 17:21 ; Tubal ligation; aa5 - Immunization history:: Adult Immunizations unknown. - Social history:: Smoking status: Patient reports the use of cigarette tobacco products, smokes one-half pack cigarettes per day. ROS: 17:29 Constitutional: Positive for fever. jmm 17:29 ENT: Positive for sore throat. 17:29 Respiratory: Positive for cough, wheezing. 17:29 All other systems are negative. Exam: 17:29 Constitutional: This is a well developed, well nourished patient who is awake, alert, jmm and in no acute distress. Head/Face: atraumatic. Eyes: EOMI, no conjunctival erythema appreciated 17:29 Neck: Trachea midline, Supple Chest/axilla: Normal chest wall appearance and motion. Cardiovascular: Regular rate and rhythm. No edema appreciated 17:29 Abdomen/GI: Non distended, soft Back: Normal ROM Skin: General appearance color normal MS/ Extremity: Moves all extremities, no obvious deformities appreciated, no edema noted to the lower extremities Neuro: Awake and alert, normal gait Psych: Behavior is normal, Mood is normal, Patient is cooperative and pleasant 17:29 ENT: Posterior pharynx: erythema, that is moderate. 17:29 Respiratory: the patient does not display signs of respiratory distress, Respirations: normal, Breath sounds: wheezing: that is mild, is heard in the right posterior upper lobe and right posterior middle lobe. Vital Signs: 17:19 BP 112 / 51; Pulse 92; Resp 18 S; Temp 98.0(TE); Pulse Ox 97% on R/A; Weight 83.91 kg aa5 (R); Height 5 ft. 5 in. (165.10 cm) (R); 18:58 BP 110 / 74; Pulse 99; Resp 16; Pulse Ox 96% on R/A; zb 19:51 BP 114 / 80; Pulse 111; Resp 18 S; Temp 98.2(O); Pulse Ox 98% on R/A; bb 17:19 Body Mass Index 30.79 (83.91 kg, 165.10 cm) aa5 MDM: 17:29 Patient medically screened. [place] 19:43 Data reviewed: vital signs, nurses notes. Counseling: I had a detailed discussion with robert the patient and/or guardian regarding: the historical points, exam findings, and any diagnostic results supporting the discharge/admit diagnosis, lab results, radiology results, the need for outpatient follow up, to return to the emergency department if symptoms worsen or persist or if there are any questions or concerns that arise at home. ED course: Patient is alert and non toxic in appearance in the ED. NO signs of resp distress. Advised to follow up with pcp and otherwise given strict return precautions. patient understood and agrees with the plan of care. . 05/02 17:34 Order name: Strep; Complete Time: 18:29 [facility] 05/02 17:34 Order name: Chest Single View XRAY; Complete Time: 18:56 [facility] 05/02 18:29 Order name: Throat Culture EDMS 05/02 19:03 Order name: COVID-19/FLU A+B; Complete Time: 19:04 EDAR Administered Medications: 17:50 Drug: Xopenex (levalbuterol) (3) 1.25 mg Route: Inhalation; zb 18:35 Follow up: Response: No adverse reaction; No change in condition zb Disposition: 05/02/21 19:44 Discharged to Home. Impression: Acute upper respiratory infection, unspecified, Acute pharyngitis. - Condition is Stable. - Discharge Instructions: Pharyngitis, Upper Respiratory Infection, Adult. - Prescriptions for Prednisone 20 mg Oral Tablet - take 3 tablet by ORAL route once daily for 5 days; 15 tablet. Zithromax Z- Willy 250 mg Oral Tablet - take 1 tablet by ORAL route as directed for 5 days Day 1 - take two (2) tablets one time. Day 2, 3, 4 , 5 take one (1) tablet once daily.; 6 tablet. Albuterol Sulfate 90 mcg/actuation - inhale 1-2 puff by INHALATION route every 4-6 hours; 1 Inhaler. - Medication Reconciliation Form, Thank You Letter, Antibiotic Education, Prescription Opioid Use form. - Follow up: Private Physician; When: 2 - 3 days; Reason: Recheck today's complaints, Continuance of care, Re-evaluation by your physician. Addendum: 05/05/2021 07:45 Co-signature as Attending Physician, Nathan Landon MD I agree with the assessment and c lopez plan of care. Signatures: Dispatcher [employer] Nathan Jain MD MD cha Mickail, Joel, PA PA jmm Calderon, Audri, RN RN aa5 Sarah Mora RN RN zb Corrections: (The following items were deleted from the chart) 05/02 18:02 17:35 CORONAVIRUS+MR.LAB.BRZ ordered. [facility] 18:03 17:35 Influenza Screen (A \T\ B)+BA.LAB.BRZ ordered. [facility] EDMS 19:51 19:44 05/02/2021 19:44 Discharged to Home. Impression: Acute upper respiratory zb infection, unspecified; Acute pharyngitis. Condition is Stable. Forms are Medication Reconciliation Form, Thank You Letter, Antibiotic Education, Prescription Opioid Use. Follow up: Private Physician; When: 2 - 3 days; Reason: Recheck today's complaints, Continuance of care, Re-evaluation by your physician. robert
[2021-05-02 19:58] VITALS: TEMP 98
[2021-05-02 19:59] VITALS: BP 110/74; O2SAT 96
== END 2021-05-02 19:51 | disposition home or self-care (01) ==
LOC: ER 17:09
DX: J06.9 Acute upper respiratory infection, unspecified (principal); J02.9 Acute pharyngitis, unspecified; F41.8 Other specified anxiety disorders; F17.210 Nicotine dependence, cigarettes, uncomplicated; Z20.822 Contact with and (suspected) exposure to COVID-19; Z91.018 Allergy to other foods
CPT/HCPCS: 87070; 87081; 0240U; 71045; 99284

== ENCOUNTER 2021-05-05 09:16 | Emergency (ER) | payer BC ==
[2021-05-05 09:48] LABS: Urine Blood 3+ (Negative); Urine Glucose Negative (Negative); Urine Protein 2+ (Negative); Urine Specific Gravity >=1.030 (1.005-1.030); Urine pH 6.5 (5.0-7.0)
[2021-05-05 10:16] LABS: Absolute Lymphocytes (CBC) 2.5 K/uL (0.7-4.9); Basophils % 0.4 % (0-1.3); Hematocrit 43.5 % (36.0-45.0); Lymphocytes % 20.4 % (15.3-44.8); MPV 9.6 fL (7.6-11.3); RBC Red Blood Cell Count 4.98 M/uL (3.86-4.86)
[2021-05-05 10:29] LABS: Urine Bacteria <20 /HPF (<20); Urine RBC >50 /HPF (NONE SEEN)
[2021-05-05 10:46] LABS: Albumin 3.7 g/dL (3.4-5.0); Bilirubin Total 0.2 mg/dL (0.2-1.0); Potassium 3.7 mmol/L (3.5-5.1); Protein, Total 7.6 g/dL (6.4-8.2)
[2021-05-05 11:03] LABS: Urine Specific Gravity/Preg >1.030 (1.005-1.030)
--- NOTE | 2021-05-05 12:50 | RAD REPORT ---
EXAM DESCRIPTION: CT - Stone Protocol - 05/05/2021 12:28 pm CLINICAL HISTORY: Abdominal pain. Flank pain COMPARISON: None. TECHNIQUE: Computed axial tomography of the abdomen pelvis was obtained without oral or IV contrast. Lack of IV and oral contrast limits evaluation of solid organs, bowel, and vessels. Coronal reformat rowena images were obtained and reviewed. All CT scans are performed using dose optimization technique as appropriate and may include automated exposure control or mA/KV adjustment according to patient size. FINDINGS: A renal calculus is not seen. An ureteral calculus is not noted. A bladder calculus is not present. The liver, spleen, pancreas and adrenals appear grossly normal Cholelithiasis. There is no evidence of diverticulitis. The appendix appears normal Retroverted uterus. No adnexal mass. Small umbilical hernia IMPRESSION: Negative for a genitourinary calculus Cholelithiasis
--- NOTE | 2021-05-05 13:05 | EDPHYS ---
Physician Documentation [facility] Name: Cora Marquez Age: 31 yrs Sex: Female : 1990 Arrival Date: 05/05/2021 Time: 09:17 Bed 5 Private MD: Antwan Pollard W ED Physician Doug Hernandez HPI: 05/05 09:55 This 31 yrs old Female presents to ER via Ambulatory with complaints of pm1 Vaginal Bleeding, Abdominal Cramping. 09:55 The patient presents with vaginal bleeding that is. Onset: The symptoms/episode pm1 began/occurred 2 day(s) ago. Modifying factors: The symptoms are alleviated by nothing, the symptoms are aggravated by nothing. Associated signs and symptoms: Pertinent positives: cramping, Pertinent negatives: diarrhea, dysuria, fever, nausea, vomiting. Severity of symptoms: in the emergency department the symptoms are unchanged. The patient has not experienced similar symptoms in the past. The patient has not recently seen a physician, has an appointment scheduled, tomorrow. Patient reports abnormal uterine bleeding with abdominal cramping and bilateral flank pain. Patient reports she is typically regular monthly and had her menses two weeks ago. 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 - Social history:: Smoking status: Patient reports the use of cigarette tobacco products, smokes one-half pack cigarettes per day. ROS: 09:55 Positive for pelvic pain, flank pain, vaginal bleeding. pm1 09:55 Constitutional: Negative for fever, chills, and weight loss, Cardiovascular: Negative for chest pain, palpitations, and edema, Respiratory: Negative for shortness of breath, cough, wheezing, and pleuritic chest pain, Back: Negative for injury and pain, MS/Extremity: Negative for injury and deformity, Skin: Negative for injury, rash, and discoloration. 09:55 Eyes: Negative for injury, pain, redness, and discharge, ENT: Negative for injury, pain, and discharge, Neck: Negative for injury, pain, and swelling, Neuro: Negative for headache, weakness, numbness, tingling, and seizure. Exam: 09:55 Constitutional: This is a well developed, well nourished patient who is awake, alert, pm1 and in no acute distress. Head/Face: Normocephalic, atraumatic. 09:55 Back: No spinal tenderness. No costovertebral tenderness. Full range of motion. Skin: Warm, dry with normal turgor. Normal color with no rashes, no lesions, and no evidence of cellulitis. MS/ Extremity: Pulses equal, no cyanosis. Neurovascular intact. Full, normal range of motion. 09:55 Eyes: Periorbital structures: appear normal, Extraocular movements: no acute changes, Sclera: icterus, is not appreciated. 09:55 ENT: Mouth: Lips: normal, Oral mucosa: normal, pink and intact, moist. 09:55 Cardiovascular: Rate: normal, Rhythm: regular, Pulses: no pulse deficits are appreciated, Edema: is not appreciated. 09:55 Respiratory: Exam negative for acute changes, respiratory distress, shortness of breath, Breath sounds: are clear throughout. 09:55 Neuro: Orientation: is normal, Mentation: is normal, Motor: is normal, moves all fours, Sensation: is normal. Vital Signs: 09:42 BP 138 / 98; Pulse 76; Resp 18; Temp 97.2; Pulse Ox 97% on R/A; Weight 83.91 kg; Height ph 5 ft. 5 in. (165.10 cm); Pain 6/10; 10:34 BP 100 / 67; Pulse 72; Resp 17; Pulse Ox 95% on R/A; tw2 11:11 BP 99 / 69; Pulse 65; Resp 17; Pulse Ox 95% on R/A; tw2 12:00 BP 101 / 69; Pulse 63; Resp 15; Pulse Ox 95% ; jl7 13:26 BP 105 / 83; Pulse 67; Resp 17; Pulse Ox 99% on R/A; tw2 09:42 Body Mass Index 30.79 (83.91 kg, 165.10 cm) ph MDM: 09:46 Patient medically screened. pm1 13:03 Data reviewed: vital signs. Data interpreted: Pulse oximetry: on room air is 95 %. pm1 Interpretation: normal. Counseling: I had a detailed discussion with the patient and/or guardian regarding: the historical points, exam findings, and any diagnostic results supporting the discharge/admit diagnosis, lab results, radiology results, the need for outpatient follow up, an OB/Gyne specialist, Patient has appointment with mixer helper tomorrow, to return to the emergency department if symptoms worsen or persist or if there are any questions or concerns that arise at home. 13:03 Special discussion: I discussed with the patient the need to follow-up with the pm1 PCP/specialist for the noted incidental finding on X-ray/CT scanning. cholelithiasis. 05/05 09:47 Order name: Urine Dipstick-Ancillary; Complete Time: 09:54 EDMS 05/05 09:48 Order name: Urine --Ancillary (enter results); Complete Time: 11:55 bd 05/05 09:55 Order name: CBC with Diff; Complete Time: 11:55 pm1 05/05 09:55 Order name: CMP; Complete Time: 11:55 pm1 05/05 09:55 Order name: Urine Microscopic Only; Complete Time: 11:55 pm1 05/05 12:03 Order name: CT Stone Protocol; Complete Time: 12:55 pm1 05/05 09:55 Order name: IV Saline Lock; Complete Time: 10:06 pm1 Administered Medications: No medications were administered Disposition: 17:29 Co-signature as Attending Physician, Doug Hernandez MD. rn Disposition: 05/05/21 13:04 Discharged to Home. Impression: Abnormal uterine and vaginal bleeding, unspecified. - Condition is Stable. - Discharge Instructions: Abnormal Uterine Bleeding. - Medication Reconciliation Form, Thank You Letter, Antibiotic Education, Prescription Opioid Use form. - Follow up: Emergency Department; When: As needed; Reason: Worsening of condition. Follow up: Private Physician; When: Tomorrow; Reason: Recheck today's complaints, Continuance of care, Re-evaluation by your physician. - Problem is new. - Symptoms have improved. Signatures: Dispatcher [employer] EDMS Doug Hernandez MD MD rn Hall, Patricia, RN RN Sagar French, PRAVEENA ASSISTANT CASE MANAGER pm1 Yana Hayden RN RN jl7 Corrections: (The following items were deleted from the chart) 13:37 13:04 05/05/2021 13:04 Discharged to Home. Impression: Abnormal uterine and vaginal jl7 bleeding, unspecified. Condition is Stable. Forms are Medication Reconciliation Form, Thank You Letter, Antibiotic Education, Prescription Opioid Use. Follow up: Emergency Department; When: As needed; Reason: Worsening of condition. Follow up: Private Physician; When: Tomorrow; Reason: Recheck today's complaints, Continuance of care, Re-evaluation by your physician. Problem is new. Symptoms have improved. pm1
--- NOTE | 2021-05-05 13:05 | ER ---
Nurse's Notes [facility] Name: Cora Marquez Age: 31 yrs Sex: Female : 1990 Arrival Date: 05/05/2021 Time: 09:17 Bed 5 Private MD: Antwan Pollard W Diagnosis: Abnormal uterine and vaginal bleeding, unspecified Presentation: 05/05 09:42 Chief complaint: Patient states: Vaginal spotting that started Tuesday night when she ph would cough, became heavier last night, also reports lower abdominal and back pain, states, " My period is always very regular and my last one was 04/17 through 04/24." Reports hx of tubal ligation, denies N/V. Coronavirus screen: At this time, the client does not indicate any symptoms associated with coronavirus-19. Ebola Screen: No symptoms or risks identified at this time. Initial Sepsis Screen: Does the patient meet any 2 criteria? No. Patient's initial sepsis screen is negative. Does the patient have a suspected source of infection? No. Patient's initial sepsis screen is negative. Risk Assessment: Do you want to hurt yourself or someone else? Patient reports no desire to harm self or others. Onset of symptoms was May 05, 2021. 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 - Social history:: Smoking status: Patient reports the use of cigarette tobacco products, smokes one-half pack cigarettes per day. Screenin:34 Abuse screen: Denies threats or abuse. Nutritional screening: No deficits noted. tw2 Tuberculosis screening: No symptoms or risk factors identified. Fall Risk None identified. Assessment: 09:42 Reassessment: pt to restroom at this time for urine sample. tw2 10:00 General: Appears in no apparent distress. obese, Behavior is calm, cooperative, tw2 appropriate for age. Pain: Denies pain. Neuro: Level of Consciousness is awake, alert, obeys commands, Oriented to person, place, time, situation. Cardiovascular: Patient's skin is warm and dry. Respiratory: Airway is patent Respiratory effort is even, unlabored, Respiratory pattern is regular, symmetrical. GI: Abdomen is flat. : Urine is surya blood, Reports discharge, vaginal bleeding that is bright red. EENT: No signs and/or symptoms were reported regarding the EENT system. Derm: No signs and/or symptoms reported regarding the dermatologic system. Musculoskeletal: Range of motion: intact in all extremities. 11:11 Reassessment: Patient appears in no apparent distress at this time. No changes from tw2 previously documented assessment. Patient and/or family updated on plan of care and expected duration. Pain level reassessed. Patient is alert, oriented x 3, equal unlabored respirations, skin warm/dry/pink. 12:00 Reassessment: Patient appears in no apparent distress at this time. No changes from jl7 previously documented assessment. Patient and/or family updated on plan of care and expected duration. Pain level reassessed. Patient is alert, oriented x 3, equal unlabored respirations, skin warm/dry/pink. 13:26 Reassessment: Patient appears in no apparent distress at this time. No changes from tw2 previously documented assessment. Patient and/or family updated on plan of care and expected duration. Pain level reassessed. Patient is alert, oriented x 3, equal unlabored respirations, skin warm/dry/pink. Vital Signs: 09:42 BP 138 / 98; Pulse 76; Resp 18; Temp 97.2; Pulse Ox 97% on R/A; Weight 83.91 kg; Height ph 5 ft. 5 in. (165.10 cm); Pain 6/10; 10:34 BP 100 / 67; Pulse 72; Resp 17; Pulse Ox 95% on R/A; tw2 11:11 BP 99 / 69; Pulse 65; Resp 17; Pulse Ox 95% on R/A; tw2 12:00 BP 101 / 69; Pulse 63; Resp 15; Pulse Ox 95% ; jl7 13:26 BP 105 / 83; Pulse 67; Resp 17; Pulse Ox 99% on R/A; tw2 09:42 Body Mass Index 30.79 (83.91 kg, 165.10 cm) ED Course: 09:17 Patient arrived in ED. am2 09:17 Antwan Pollard MD is Private Physician. am2 09:33 Awa Oliveira, RAFAL is Primary Nurse. tw2 09:34 Call light in reach. Side rails up X 1. Pulse ox on. NIBP on. tw2 09:37 Sagar Merrill NP is PHCP. pm1 09:37 Doug Hernandez MD is Attending Physician. pm1 09:43 Arm band placed on. tw2 09:45 Triage completed. ph 10:00 Inserted saline lock: 20 gauge in right antecubital area, using aseptic technique. tw2 Blood collected. 12:28 CT Stone Protocol In Process Unspecified. EDMS 13:37 No provider procedures requiring assistance completed. IV discontinued, intact, jl7 bleeding controlled, No redness/swelling at site. Pressure dressing applied. Administered Medications: No medications were administered Outcome: 13:04 Discharge ordered by . pm1 13:37 Discharged to home ambulatory. jl7 13:37 Condition: stable 13:37 Discharge instructions given to patient, Instructed on discharge instructions, follow up and referral plans. Demonstrated understanding of instructions, follow-up care. 13:37 Patient left the ED. jl7 Signatures: Dispatcher [employer] EDNH Tessie Garcia RN RN Sagar Merrill NP CATALYST IMPREGNATOR pm1 Awa Oliveira RN RN tw2 Yana Hayden RN RN jl7 Maribel Mccarthy am
[2021-05-05 13:48] VITALS: TEMP 97.2
[2021-05-05 14:06] VITALS: BP 105/83; O2SAT 99
== END 2021-05-05 13:37 | disposition home or self-care (01) ==
LOC: ER 09:16
DX: N93.9 Abnormal uterine and vaginal bleeding, unspecified (principal); F41.8 Other specified anxiety disorders; F17.210 Nicotine dependence, cigarettes, uncomplicated; Z91.018 Allergy to other foods
CPT/HCPCS: 36415; 74176; 76377; 80053; 81003; 81015; 81025; 85025; 99284

== ENCOUNTER 2021-06-10 16:42 | Emergency (ER) | payer BC ==
[2021-06-10 19:06] LABS: Absolute Lymphocytes (CBC) 2.8 K/uL (0.7-4.9); Basophils % 0.4 % (0-1.3); Hematocrit 41.7 % (36.0-45.0); Lymphocytes % 22.3 % (15.3-44.8); MPV 9.4 fL (7.6-11.3); RBC Red Blood Cell Count 4.76 M/uL (3.86-4.86)
[2021-06-10] MEDS ORDERED: NA CHLORIDE 0.9% 1,000 ML ONE (19:32)
[2021-06-10] MEDS ORDERED: CIPROFLOXACIN IV ONE (19:32)
[2021-06-10] MEDS ORDERED: FENTANYL CITR 100 MCG/2 ML ONE (19:35)
[2021-06-10 19:54] LABS: Urine Blood Negative (Negative); Urine Glucose Negative (Negative); Urine Protein 2+ (Negative); Urine Specific Gravity 1.025 (1.005-1.030); Urine pH 8.5 (5.0-7.0)
--- NOTE | 2021-06-10 20:20 | ER ---
Nurse's Notes [facility] Name: Cora Marquez Age: 31 yrs Sex: Female : 1990 Arrival Date: 06/10/2021 Time: 16:47 Bed 16 Private MD: Diagnosis: Cutaneous abscess of groin-left;Cellulitis of groin-left Presentation: 06/10 17:03 Chief complaint: Patient states: Left labial abscess x 1 month from ingrown hair, jl7 unable to get rid of at home, causing pain with walking. Coronavirus screen: Client denies travel out of the [place] in the last 14 days. At this time, the client does not indicate any symptoms associated with coronavirus-19. Ebola Screen: No symptoms or risks identified at this time. Initial Sepsis Screen: Does the patient meet any 2 criteria? No. Patient's initial sepsis screen is negative. Does the patient have a suspected source of infection? No. Patient's initial sepsis screen is negative. Risk Assessment: Do you want to hurt yourself or someone else? Patient reports no desire to harm self or others. Onset of symptoms was April 2021. 17:03 Method Of Arrival: Ambulatory jl7 17:03 Acuity: MARYANA 4 jl7 Triage Assessment: 17:05 General: Appears in no apparent distress. uncomfortable, Behavior is calm, cooperative, jl7 appropriate for age. Pain: Complains of pain in groin Pain currently is 9 out of 10 on a pain scale. 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 - Social history:: Smoking status: Patient reports the use of cigarette tobacco products, smokes one-half pack cigarettes per day. Screenin:06 Abuse screen: Denies threats or abuse. Nutritional screening: No deficits noted. ap3 Tuberculosis screening: No symptoms or risk factors identified. Fall Risk None identified. Assessment: 16:45 General: Appears in no apparent distress. comfortable, Behavior is calm, cooperative, ap3 appropriate for age. Pain: Complains of pain in left labia majora Pain does not radiate. Pain currently is 6 out of 10 on a pain scale. Quality of pain is described as throbbing, Pain began gradually, last few weeks Is continuous. Neuro: Level of Consciousness is awake, alert, obeys commands, Oriented to person, place, time, situation, Appropriate for age Moves all extremities. Gait is steady, Speech is normal. Cardiovascular: Capillary refill < 3 seconds. Respiratory: Airway is patent Respiratory effort is even, unlabored, Respiratory pattern is regular, symmetrical. GI: No signs and/or symptoms were reported involving the gastrointestinal system. : No signs and/or symptoms were reported regarding the genitourinary system. EENT: No signs and/or symptoms were reported regarding the EENT system. Derm: Abscess located on left labia majora is nickel sized. 20:19 Reassessment: Patient and/or family updated on plan of care and expected duration. Pain ak2 level reassessed. Vital Signs: 17:03 BP 120 / 72; Pulse 84; Resp 15; Temp 97.7; Pulse Ox 97% on R/A; Weight 86.18 kg; Height jl7 5 ft. 5 in. (165.10 cm); Pain 9/10; 20:20 BP 112 / 68; Pulse 78; Resp 16; Pulse Ox 99% on R/A; ak2 17:03 Body Mass Index 31.62 (86.18 kg, 165.10 cm) jl7 ED Course: 16:47 Patient arrived in ED. am2 17:05 Triage completed. jl7 17:05 Arm band placed on right wrist. Patient placed in waiting room, Patient notified of jl7 wait time. 17:53 Maribel Valderrama, RAFAL is Primary Nurse. ap3 18:04 Nathan Chacon PA is PHCP. cp 18:12 Felice Lyons MD is Attending Physician. cp 18:45 Inserted saline lock: 20 gauge in left antecubital area, using aseptic technique. Blood ap3 collected. 19:06 Patient has correct armband on for positive identification. Bed in low position. Call ap3 light in reach. Side rails up X 1. Pulse ox on. NIBP on. Door closed. Noise minimized. 21:11 No provider procedures requiring assistance completed. IV discontinued. ak2 Administered Medications: 19:27 Drug: Clindamycin 900 mg Route: IVPB; Infused Over: 30 mins; Site: left antecubital; ak2 19:27 Drug: NS 0.9% 1000 ml Route: IV; Rate: 1 bolus; Site: left antecubital; ak2 19:27 Drug: fentaNYL (PF) 25 mcg Route: IVP; Site: left antecubital; ak2 Outcome: 20:20 Discharge ordered by . jorje 21:11 Discharged to home ak2 21:11 Discharged to home ambulatory. 21:11 Condition: good 21:11 Discharge instructions given to patient, Prescriptions given X 21:11 Patient left the ED. ak2 Signatures: Nathan Chacon PA PA cp Leal, Jahala, RN RN jl7 Maribel Mccarthy am2 Maribel Valderrama RN RN ap3 Parminder Cotto ak2
--- NOTE | 2021-06-10 20:20 | EDPHYS ---
Physician Documentation [facility] Name: Cora Marquez Age: 31 yrs Sex: Female : 1990 Arrival Date: 06/10/2021 Time: 16:47 Bed 16 Private MD: ED Physician Felice Lyons HPI: 06/10 18:50 This 31 yrs old Female presents to ER via Ambulatory with complaints of cp Abscess. 18:50 The patient presents with an abscess of the left groin. Description: draining, swollen. cp 18:50 Onset: The symptoms/episode began/occurred 1 month(s) ago. cp 18:50 Possible cause(s): started after having bikini area waxed. cp 18:50 Associated signs and symptoms: Pertinent positives: drainage, Pertinent negatives: cp fever. 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 - Social history:: Smoking status: Patient reports the use of cigarette tobacco products, smokes one-half pack cigarettes per day. ROS: 19:00 Constitutional: Negative for body aches, chills, fever, poor PO intake. cp 19:00 Eyes: Negative for injury, pain, redness, and discharge. cp 19:00 Cardiovascular: Negative for chest pain, palpitations. 19:00 Respiratory: Negative for cough, shortness of breath, wheezing. 19:00 Abdomen/GI: Negative for abdominal pain, nausea, vomiting, and diarrhea. 19:00 Skin: Positive for abscess, of the left groin. 19:00 All other systems are negative. Exam: 20:25 Constitutional: The patient appears in no acute distress, alert, awake, non-toxic, well cp developed, well nourished. 20:25 Head/Face: Normocephalic, atraumatic. cp 20:25 Chest/axilla: Inspection: normal. 20:25 Cardiovascular: Rate: normal. 20:25 Respiratory: the patient does not display signs of respiratory distress, Respirations: normal. 20:25 Skin: abscess, that is small, of the left groin, with drainage, that is purulent, mild surrounding erythema. Vital Signs: 17:03 BP 120 / 72; Pulse 84; Resp 15; Temp 97.7; Pulse Ox 97% on R/A; Weight 86.18 kg; Height jl7 5 ft. 5 in. (165.10 cm); Pain 9/10; 20:20 BP 112 / 68; Pulse 78; Resp 16; Pulse Ox 99% on R/A; ak2 17:03 Body Mass Index 31.62 (86.18 kg, 165.10 cm) jl7 Procedures: 20:15 I \T\ D: Incision and drainage was performed for an abscess of the left groin Prepped cp with Betadine, Anesthetized with 5 ccs of 1% lidocaine with epi and 0.5% marcaine. Incised with #11 blade. Drained small amount purulent fluid. Packed with iodoform gauze, Dressing: sterile 4x4 gauze, the patient tolerated the procedure well. MDM: 18:17 Patient medically screened. cp 19:00 Differential diagnosis: abscess, cellulitis. cp 20:20 Data reviewed: vital signs, nurses notes, lab test result(s), and as a result, I will cp discharge patient. 20:20 Counseling: I had a detailed discussion with the patient and/or guardian regarding: the historical points, exam findings, and any diagnostic results supporting the discharge/admit diagnosis, lab results, the need for outpatient follow up, a family practitioner, to return to the emergency department if symptoms worsen or persist or if there are any questions or concerns that arise at home. Response to treatment: the patient's symptoms have markedly improved after treatment, and as a result, I will discharge patient. 06/10 18:47 Order name: Wound Culture cp 06/10 18:47 Order name: CBC with Diff; Complete Time: 20:21 cp 06/10 20:21 Interpretation: Normal except: WBC 12.50; NEUT A 8.6. cp 06/10 18:56 Order name: BMP cp 06/10 18:56 Order name: Basic Metabolic Panel; Complete Time: 21:02 EDMS 06/10 19:54 Order name: Urine Dipstick-Ancillary; Complete Time: 20:21 EDMS 06/10 18:51 Order name: IV Saline Lock; Complete Time: 18:51 ap3 06/10 19:00 Order name: I\T\D Setup; Complete Time: 19:07 cp Administered Medications: 19:27 Drug: Clindamycin 900 mg Route: IVPB; Infused Over: 30 mins; Site: left antecubital; ak2 19:27 Drug: NS 0.9% 1000 ml Route: IV; Rate: 1 bolus; Site: left antecubital; ak2 19:27 Drug: fentaNYL (PF) 25 mcg Route: IVP; Site: left antecubital; ak2 Disposition: 06/11 06:42 Co-signature as Attending Physician, Felice Lyons MD I agree with the assessment and kdr plan of care. Disposition Summary: 06/10/21 20:20 Discharge Ordered Location: Home cp Problem: new cp Symptoms: have improved cp Condition: Stable cp Diagnosis - Cutaneous abscess of groin - left cp - Cellulitis of groin - left cp Followup: cp - With: Private Physician - When: 2 - 3 days - Reason: Wound Recheck Discharge Instructions: - Discharge Summary Sheet cp - Skin Abscess cp - Cellulitis, Adult cp - Incision and Drainage cp Forms: - Medication Reconciliation Form cp - Thank You Letter cp - Antibiotic Education cp - Prescription Opioid Use cp Prescriptions: - Clindamycin HCl 300 mg Oral Capsule - take 1 capsule by ORAL route every 6 hours for 10 days; 40 capsule; Refills: 0, cp Product Selection Permitted - Naprosyn 500 mg Oral Tablet - take 1 tablet by ORAL route 2 times per day take with food; 20 tablet; Refills: cp 0, Product Selection Permitted - Bactrim DS 800-160 mg Oral Tablet - take 1 tablet by ORAL route every 12 hours for 10 days; 20 tablet; Refills: 0, cp Product Selection Permitted Signatures: Dispatcher [facility] eFlice Lyons MD MD kdr Page, Corey, PA PA Yana Muro RN RN jl7 Maribel Valderrama RN RN ap3 Parminder Cotto ak2
[2021-06-10 20:26] LABS: Potassium 3.7 mmol/L (3.5-5.1)
[2021-06-10] MEDS ORDERED: LIDOCAINE 1% MPF 30 ML VIAL ONE (20:26)
[2021-06-10 21:44] VITALS: TEMP 97.7
[2021-06-10 21:45] VITALS: BP 112/68; O2SAT 99
== END 2021-06-10 21:11 | disposition home or self-care (01) ==
LOC: ER 16:42
PROC: 0H9AXZZ Drainage of Inguinal Skin, External Approach (ICD-10-PCS; principal; 2021-06-10)
DX: L03.314 Cellulitis of groin (principal); F41.8 Other specified anxiety disorders; Z91.018 Allergy to other foods
CPT/HCPCS: 87070; 85025; 80048; 36415; 87205; 81003; 96375; 96374; 99284; 10060; J3010; J7030; J0744

== ENCOUNTER 2021-07-17 18:57 | Emergency (ER) | payer BC ==
--- NOTE | 2021-07-17 19:49 | EDPHYS ---
Physician Documentation [facility] Name: Cora Marquez Age: 31 yrs Sex: Female : 1990 Arrival Date: 07/17/2021 Time: 19:00 Bed Waiting Private MD: DONNIE Physician Mitch Victoria HPI: 07/17 19:49 This 31 yrs old Female presents to ER via Ambulatory with complaints of r/o jmm covid. 19:49 Onset: The symptoms/episode began/occurred. Patient states she was exposed to COVID-19 jmm on the . Denies any symptoms.. 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 - Social history:: Smoking status: Patient reports the use of cigarette tobacco products, smokes one pack cigarettes per day. ROS: 19:49 Constitutional: Negative for fever, chills, and weight loss, Cardiovascular: Negative jmm for chest pain, palpitations, and edema, Respiratory: Negative for shortness of breath, cough, wheezing, and pleuritic chest pain, Abdomen/GI: Negative for abdominal pain, nausea, vomiting, diarrhea, and constipation, Neuro: Negative for headache, weakness, numbness, tingling, and seizure. 19:49 All other systems are negative. Exam: 19:49 Constitutional: This is a well developed, well nourished patient who is awake, alert, jmm and in no acute distress. Head/Face: atraumatic. Eyes: EOMI, no conjunctival erythema appreciated ENT: Moist Mucus Membranes Neck: Trachea midline, Supple Chest/axilla: Normal chest wall appearance and motion. Cardiovascular: Regular rate and rhythm. No edema appreciated Respiratory: Normal respirations, no respiratory distress appreciated Abdomen/GI: Non distended, soft Back: Normal ROM Skin: General appearance color normal MS/ Extremity: Moves all extremities, no obvious deformities appreciated, no edema noted to the lower extremities Neuro: Awake and alert, normal gait Psych: Behavior is normal, Mood is normal, Patient is cooperative and pleasant Vital Signs: 19:52 BP 107 / 72; Pulse 72; Resp 20; Temp 98.9; Pulse Ox 98% on R/A; Weight 86.18 kg (R); kg Height 5 ft. 5 in. (165.10 cm); Pain 0/10; 19:52 Body Mass Index 31.62 (86.18 kg, 165.10 cm) kg MDM: 19:48 Patient medically screened. [facility] 07/18 01:21 Data reviewed: vital signs, nurses notes. Counseling: I had a detailed discussion with toby the patient and/or guardian regarding: the historical points, exam findings, and any diagnostic results supporting the discharge/admit diagnosis, the need for outpatient follow up, to return to the emergency department if symptoms worsen or persist or if there are any questions or concerns that arise at home. Administered Medications: No medications were administered Disposition: 03:17 Co-signature as Attending Physician, Mitch Victoria MD. [email or web address] Disposition Summary: 07/17/21 19:48 Discharge Ordered Location: Home [facility] Condition: Stable [facility] Diagnosis - Covid Exposure [facility] Followup: [facility] - With: Private Physician - When: 2 - 3 days - Reason: Recheck today's complaints, Continuance of care, Re-evaluation by your physician Discharge Instructions: - Discharge Summary Sheet [facility] Forms: - Medication Reconciliation Form [facility] - Thank You Letter [facility] - Antibiotic Education [facility] - Prescription Opioid Use [facility] Signatures: Vitaly Ronquillo PA PA Mitch Rodas MD MD mh7 Patsy Braswell, RN RN kg
--- NOTE | 2021-07-17 19:59 | ER ---
Nurse's Notes [facility] Name: Cora Marquez Age: 31 yrs Sex: Female : 1990 Arrival Date: 07/17/2021 Time: 19:00 Bed Waiting Private MD: Diagnosis: Covid Exposure Presentation: 07/17 19:52 Chief complaint: Patient states: Covid exposure 07/16. Asymptomatic. Coronavirus kg screen: Client denies travel out of the [place] in the last 14 days. At this time, unable to obtain information related to travel outside the [place] At this time, the client does not indicate any symptoms associated with coronavirus-19. Ebola Screen: Patient negative for fever greater than or equal to 101.5 degrees Fahrenheit, and additional compatible Ebola Virus Disease symptoms Patient denies exposure to infectious person. Patient denies travel to an Ebola-affected area in the 21 days before illness onset. Initial Sepsis Screen: Does the patient meet any 2 criteria? No. Patient's initial sepsis screen is negative. Does the patient have a suspected source of infection? No. Patient's initial sepsis screen is negative. Risk Assessment: Do you want to hurt yourself or someone else? Patient reports no desire to harm self or others. Onset of symptoms was July 16, 2021. 19:52 Method Of Arrival: Ambulatory kg 19:52 Acuity: MARYANA 5 kg Triage Assessment: 19:54 General: Appears in no apparent distress. Behavior is calm, cooperative, appropriate kg for age, quiet. Pain: Denies pain. 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 - Social history:: Smoking status: Patient reports the use of cigarette tobacco products, smokes one pack cigarettes per day. Screenin:55 Abuse screen: Denies threats or abuse. Denies injuries from another. Nutritional kg screening: No deficits noted. Tuberculosis screening: No symptoms or risk factors identified. Fall Risk None identified. Vital Signs: 19:52 BP 107 / 72; Pulse 72; Resp 20; Temp 98.9; Pulse Ox 98% on R/A; Weight 86.18 kg (R); kg Height 5 ft. 5 in. (165.10 cm); Pain 0/10; 19:52 Body Mass Index 31.62 (86.18 kg, 165.10 cm) kg ED Course: 19:00 Patient arrived in ED. as 19:38 Vitaly Ronquillo PA is PHCP. [facility] 19:38 Mitch Victoria MD is Attending Physician. [facility] 19:54 Triage completed. kg 19:54 Arm band placed on. kg 19:55 Patient has correct armband on for positive identification. kg 19:55 No provider procedures requiring assistance completed. Patient did not have IV access kg during this emergency room visit. Administered Medications: No medications were administered Outcome: 19:48 Discharge ordered by . [facility] 19:58 Medical screen evaluation completed per provider. Patient declined treatment. kg 19:58 Condition: good 19:58 Following a medical screening exam, the patient was provided information regarding alternative care sites and resources available per registration personnel. 19:58 Patient left the ED. kg Signatures: Vitaly Ronquillo PA PA jmm Martinez, Amelia as Graham, Kristen, RN RN kg
[2021-07-17 20:09] VITALS: BP 107/72; TEMP 98.9; O2SAT 98
== END 2021-07-17 19:58 | disposition home or self-care (01) ==
LOC: ER 18:57
DX: Z20.822 Contact with and (suspected) exposure to COVID-19 (principal)
CPT/HCPCS: 99281

== ENCOUNTER 2022-05-25 08:18 | Emergency (ER) | payer BC ==
--- OUTSIDE RECORDS SUMMARY | 2022-05-25 08:21 | XMS REPORT | Continuity of Care Document ---
:1990 Author Organization [facility] t Address [address] [place] [address] Care Team Providers Name Role Phone Jarrod SWAN, Douglas Attending Clinician DOUGLAS GARAY Attending Clinician Unavailable Payers Payer Name Policy Type Policy Number Effective Date Expiration Date S [facility] 2 [id number] 2022 00:00:00 Problems This patient has no known problems. Allergies, Adverse Reactions, Alerts This patient has no known allergies or adverse reactions. Medications This patient has no known medications. Procedures This patient has no known procedures. Encounters Start End Encounter Admission Attending Care Care Encounter Source Date/Time Date/Time Type Type Clinicians Facility Department ID 2022-05-06 2022-05-06 Office Ivan aGray [id number] [place] 10:30:00 11:00:00 Visit Ellie Patrick [id number] Se roque Cole [id number] 2022-05-06 2022-05-06 Outpatient SVITLANA GARAY [id number] [place] 00:00:00 00:00:00 ELLIE ugarte Results This patient has no known results.
[2022-05-25 09:10] LABS: Absolute Lymphocytes (CBC) 2.8 K/uL (0.7-4.9); Hematocrit 41.5 % (36.0-45.0); Lymphocytes % 27.1 % (15.3-44.8); MPV 8.9 fL (7.6-11.3); RBC Red Blood Cell Count 4.75 M/uL (3.86-4.86)
[2022-05-25] MEDS ORDERED: FAMOTIDINE 20 MG/2 ML VIAL IV ONE (09:24)
[2022-05-25] MEDS ORDERED: NA CHLORIDE 0.9% 1,000 ML ONE (09:24)
[2022-05-25 09:33] LABS: Urine Blood 3+ (Negative); Urine Glucose Negative (Negative); Urine Protein Negative (Negative); Urine Specific Gravity >=1.030 (1.005-1.030); Urine pH 5.5 (5.0-7.0)
[2022-05-25 09:56] LABS: Albumin 3.4 g/dL (3.4-5.0); Bilirubin Total 0.2 mg/dL (0.2-1.0); Potassium 3.9 mmol/L (3.5-5.1); Protein, Total 6.6 g/dL (6.4-8.2); Troponin High Sensitivity 15.8 pg/mL (<58.9)
--- NOTE | 2022-05-25 10:52 | RAD REPORT ---
EXAM DESCRIPTION: CT - Abdomen Pelvis W Contrast - 05/25/2022 10:13 am CLINICAL HISTORY: Epigastric pain COMPARISON: Stone Protocol dated 05/05/2021 TECHNIQUE: Biphasic, helical CT imaging of the abdomen and pelvis was performed following 100 ml non -ionic IV contrast. No oral contrast administered. All CT scans are performed using dose optimization technique as appropriate and may include automated exposure control or mA/KV adjustment according to patient size. FINDINGS: No suspicious findings in the lung bases. The liver, spleen, and pancreas show no suspicious findings. Multiple small sub centimeter gallstones layering on the dependent portion of the gallbladder wall are noted and have been previously seen. N o gallbladder wall thickening or edema. No biliary tree abnormality. Symmetric renal function is seen with no hydronephrosis or suspicious renal mass. No pyelonephritis o r acute parenchymal process. No bladder abnormalities. No adrenal abnormalities. Uterus and ovaries s how no suspicious findings. No dilated bowel loops or bowel wall thickening. The appendix is normal. No free air, free fluid or i nflammatory stranding. No hernia, mass or bulky lymphadenopathy. Phleboliths are seen along the pelv ic floor. No suspicious bony findings. IMPRESSION: Contrast enhanced CT abdomen and pelvis showing no acute or emergent finding. Multi stone cholelithiasis, previously diagnosed, without acute gallbladder or biliary tree finding.
--- NOTE | 2022-05-25 10:54 | RAD REPORT ---
EXAM DESCRIPTION: RAD - Chest Single View - 05/25/2022 9:47 am CLINICAL HISTORY: CHEST PAIN COMPARISON: April 2021 TECHNIQUE: AP portable chest image was obtained 05/25/2022 9:47 am . FINDINGS: Lungs are clear. Heart and vasculature are normal. No measurable pleural effusion and no p neumothorax. No acute bony abnormality seen. No acute aortic findings suspected. IMPRESSION: No acute cardiopulmonary process.
--- NOTE | 2022-05-25 11:23 | ER ---
Nurse's Notes [facility] Name: Cora Marquez Age: 32 yrs Sex: Female : 1990 Arrival Date: 05/25/2022 Time: 08:20 Bed 17 Private MD: Diagnosis: Other cholelithiasis without obstruction Presentation: 05/25 08:25 Chief complaint: Patient states: heartburn that began last night. Took an Aleve which ss seemed to help the pain some, but not the actual burning. Pt woke up at 0745 with the burning radiating towards her back. Denies N/V/D. Coronavirus screen: Client denies travel out of the [place] in the last 14 days. Ebola Screen: Patient denies exposure to infectious person. Patient denies travel to an Ebola-affected area in the 21 days before illness onset. Initial Sepsis Screen: Does the patient meet any 2 criteria? No. Patient's initial sepsis screen is negative. Does the patient have a suspected source of infection? No. Patient's initial sepsis screen is negative. Risk Assessment: Do you want to hurt yourself or someone else? Patient reports no desire to harm self or others. Onset of symptoms was May 24, 2022. 08:25 Method Of Arrival: Ambulatory ss 08:25 Acuity: MARYANA 3 ss Triage Assessment: 08:36 General: Appears uncomfortable, Behavior is calm. Pain: Complains of pain in back Pain jg9 currently is 5 out of 10 on a pain scale. Cardiovascular: Reports chest pain. 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 - Social history:: Smoking status: Patient reports the use of cigarette tobacco products, smokes one-half pack cigarettes per day. Screenin:35 Abuse screen: Denies threats or abuse. Denies injuries from another. Nutritional jg9 screening: No deficits noted. Tuberculosis screening: No symptoms or risk factors identified. Fall Risk None identified. Assessment: 08:37 Pain: Complains of pain in chest Pain radiates to back Pain began 1 day ago. jg9 10:39 Reassessment: Patient and/or family updated on plan of care and expected duration. Pain jg9 level reassessed. Patient is alert, oriented x 3, equal unlabored respirations, skin warm/dry/pink. Patient states feeling better. Patient states symptoms have improved. Vital Signs: 08:25 BP 120 / 91; Pulse 71; Resp 16; Pulse Ox 100% on R/A; Weight 90.72 kg; Height 5 ft. 5 ss in. (165.10 cm); Pain 9/10; 08:48 Temp 97.6(TE); ss 09:30 BP 104 / 72; Pulse 64; Resp 18 S; Pulse Ox 99% on R/A; jg9 10:15 BP 105 / 66; Pulse 76; Resp 17 S; Pulse Ox 100% on R/A; Pain 0/10; jg9 11:26 BP 99 / 68; Pulse 68; Resp 14 S; Pulse Ox 98% on R/A; jg9 08:25 Body Mass Index 33.28 (90.72 kg, 165.10 cm) ED Course: 08:20 Patient arrived in ED. mr 08:27 Triage completed. ss 08:27 Arm band placed on right wrist. ss 08:30 Sagar Merrill NP is PHCP. pm1 08:30 Doug Hernandez MD is Attending Physician. pm1 08:35 Andree German, RN is Primary Nurse. jg9 08:36 Patient has correct armband on for positive identification. Bed in low position. Call jg9 light in reach. Side rails up X 1. Client placed on continuous cardiac and pulse oximetry monitoring. NIBP monitoring applied. 08:37 Patient maintains SpO2 saturation greater than 95% on room air. jg9 08:50 EKG done, by ED staff, reviewed by Doug Hernandez MD. dh3 09:00 Inserted saline lock: 22 gauge in right forearm, using aseptic technique. Blood jg9 collected. 09:49 Chest Single View XRAY In Process Unspecified. EDMS 10:15 CT Abd/Pelvis - IV Contrast Only In Process Unspecified. EDMS 11:22 Conrad Marcano MD is Referral Physician. pm1 11:22 Referral Physician role handed off by Conrad Marcano MD pm1 11:22 Bobby Huff MD is Referral Physician. pm1 11:29 Nurse Practitioner and/or Physician Institutional Nutrition Consultant to see patient. jg9 11:29 No provider procedures requiring assistance completed. jg9 11:48 IV discontinued. jg9 Administered Medications: 09:25 Drug: NS 0.9% 1000 ml Route: IV; Rate: 1 bolus; Site: right forearm; jg9 11:15 Follow up: IV Status: Completed infusion; IV Intake: 1000ml jg9 09:25 Drug: Pepcid (famotidine) 20 mg Route: IVP; Site: right forearm; jg9 11:00 Follow up: Response: No adverse reaction jg9 Medication: 10:38 VIS not applicable for this client. jg9 Point of Care Testing: Urine : 10:38 hCG Reading: Negative; Control Reading: Positive; jg9 Intake: 11:15 IV: 1000ml; Total: 1000ml. jg9 Outcome: 11:22 Discharge ordered by . pm1 11:29 Condition: improved jg9 11:48 Discharged to home ambulatory. jg9 11:48 Discharge instructions given to patient, Instructed on discharge instructions, follow up and referral plans. Demonstrated understanding of instructions, follow-up care, Prescriptions given X 2. 11:49 Patient left the ED. jg9 Signatures: Dispatcher [employer] Rosa Maria Riojas Shelby, RN RN ss Sagar Merrill, SCHEDULE ANALYST SCHEDULE ANALYST pm1 Ashlee Vizcarra [facility] Andree German RN RN jg9
--- NOTE | 2022-05-25 11:23 | EDPHYS ---
Physician Documentation [facility] Name: Cora Marquez Age: 32 yrs Sex: Female : 1990 Arrival Date: 05/25/2022 Time: 08:20 Bed 17 Private MD: ED Physician Doug Hernandez HPI: 05/25 08:54 This 32 yrs old Female presents to ER via Ambulatory with complaints of Chest Pain, pm1 Back Pain. 08:54 The patient or guardian reports chest pain that is located primarily in the mid-sternal pm1 area. The pain radiates to back. Associated signs and symptoms: Pertinent negatives: cough, dizziness, headache, nausea, shortness of breath, vomiting. The chest pain is described as burning. Duration: The patient or guardian reports a single episode, that is still ongoing. Modifying factors: The symptoms are alleviated by antacids, NSAIDS. Severity of pain: in the emergency department the pain has improved. The patient has not experienced similar symptoms in the past. The patient has not recently seen a physician. 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 - Social history:: Smoking status: Patient reports the use of cigarette tobacco products, smokes one-half pack cigarettes per day. ROS: 08:54 Constitutional: Negative for fever, chills, and weight loss. pm1 08:54 Respiratory: Negative for shortness of breath, cough, wheezing, and pleuritic chest pain. 08:54 Abdomen/GI: Negative for abdominal pain, nausea, vomiting, diarrhea, and constipation, Back: Negative for injury and pain, : Negative for injury, bleeding, discharge, and swelling, MS/Extremity: Negative for injury and deformity, Skin: Negative for injury, rash, and discoloration, Neuro: Negative for headache, weakness, numbness, tingling, and seizure. 08:54 Cardiovascular: Positive for chest pain, Negative for edema, orthopnea, palpitations. 08:54 All other systems are negative. Exam: 08:54 Constitutional: This is a well developed, well nourished patient who is awake, alert, pm1 and in no acute distress. Head/Face: Normocephalic, atraumatic. 08:54 Back: No spinal tenderness. No costovertebral tenderness. Full range of motion. Skin: Warm, dry with normal turgor. Normal color with no rashes, no lesions, and no evidence of cellulitis. MS/ Extremity: Pulses equal, no cyanosis. Neurovascular intact. Full, normal range of motion. 08:54 Cardiovascular: Exam negative for acute changes, Rate: normal, Rhythm: regular, Pulses: no pulse deficits are appreciated, Heart sounds: normal, normal S1and S2. 08:54 Respiratory: Exam negative for acute changes, respiratory distress, shortness of breath, Breath sounds: are clear throughout. 08:54 Abdomen/GI: Inspection: abdomen appears normal, Palpation: soft, in all quadrants, mild abdominal tenderness, in the epigastric area. 08:54 Neuro: Exam negative for acute changes, Orientation: is normal, Mentation: is normal, Motor: is normal, moves all fours. Vital Signs: 08:25 BP 120 / 91; Pulse 71; Resp 16; Pulse Ox 100% on R/A; Weight 90.72 kg; Height 5 ft. 5 ss in. (165.10 cm); Pain 9/10; 08:48 Temp 97.6(TE); ss 09:30 BP 104 / 72; Pulse 64; Resp 18 S; Pulse Ox 99% on R/A; jg9 10:15 BP 105 / 66; Pulse 76; Resp 17 S; Pulse Ox 100% on R/A; Pain 0/10; jg9 11:26 BP 99 / 68; Pulse 68; Resp 14 S; Pulse Ox 98% on R/A; jg9 08:25 Body Mass Index 33.28 (90.72 kg, 165.10 cm) ss MDM: 08:39 Patient medically screened. pm1 11:20 Data reviewed: vital signs. Data interpreted: Pulse oximetry: on room air is 100 %. pm1 Interpretation: normal. Counseling: I had a detailed discussion with the patient and/or guardian regarding: the historical points, exam findings, and any diagnostic results supporting the discharge/admit diagnosis, lab results, radiology results, the need for outpatient follow up, a general surgeon, to return to the emergency department if symptoms worsen or persist or if there are any questions or concerns that arise at home. 05/25 08:53 Order name: CBC with Diff; Complete Time: 09:59 pm1 05/25 08:53 Order name: CMP; Complete Time: 09:59 pm1 05/25 08:53 Order name: Lipase; Complete Time: 09:59 pm1 05/25 08:53 Order name: Troponin High Sensitivity; Complete Time: 09:59 pm1 05/25 09:33 Order name: Urine Dipstick-Ancillary; Complete Time: 09:59 EDMS 05/25 08:53 Order name: IV Saline Lock; Complete Time: 09:16 pm1 05/25 08:53 Order name: Labs collected and sent; Complete Time: 09:16 pm1 05/25 08:53 Order name: Urine Dipstick-Ancillary (obtain specimen); Complete Time: 10:37 pm1 05/25 08:53 Order name: Urine Test (obtain specimen); Complete Time: 10:37 pm1 05/25 08:53 Order name: CT Abd/Pelvis - IV Contrast Only; Complete Time: 10:57 pm1 05/25 08:53 Order name: Chest Single View XRAY; Complete Time: 10:57 pm1 Administered Medications: 09:25 Drug: NS 0.9% 1000 ml Route: IV; Rate: 1 bolus; Site: right forearm; jg9 11:15 Follow up: IV Status: Completed infusion; IV Intake: 1000ml jg9 09:25 Drug: Pepcid (famotidine) 20 mg Route: IVP; Site: right forearm; jg9 11:00 Follow up: Response: No adverse reaction jg9 Point of Care Testing: Urine : 10:38 hCG Reading: Negative; Control Reading: Positive; jg9 Disposition: 18:02 Co-signature as Attending Physician, Doug Hernandez MD. rn Disposition Summary: 05/25/22 11:22 Discharge Ordered Location: Home pm1 Problem: new pm1 Symptoms: have improved pm1 Condition: Stable pm1 Diagnosis - Other cholelithiasis without obstruction pm1 Followup: pm1 - With: Emergency Department - When: As needed - Reason: Worsening of condition Followup: pm1 - With: Private Physician - When: 2 - 3 days - Reason: Recheck today's complaints, Continuance of care, Re-evaluation by your physician Followup: pm1 - With: Conrad Marcano MD - When: 2 - 3 days - Reason: Recheck today's complaints, Continuance of care, Re-evaluation by your physician Followup: pm1 - With: Bobby Huff MD - When: 2 - 3 days - Reason: Recheck today's complaints, Continuance of care, Re-evaluation by your physician Discharge Instructions: - Discharge Summary Sheet pm1 - Cholelithiasis pm1 Forms: - Medication Reconciliation Form pm1 - Thank You Letter pm1 - Antibiotic Education pm1 - Prescription Opioid Use pm1 Prescriptions: - Pepcid 20 mg Oral Tablet - take 1 tablet by ORAL route every 12 hours for 10 days; 20 tablet; Refills: 0, pm1 Product Selection Permitted - dicyclomine 20 mg Oral Tablet - take 1 tablet by ORAL route 4 times per day As needed; 20 tablet; Refills: 0, pm1 Product Selection Permitted Signatures: Dispatcher [employer] EDDoug Haque MD MD rn Smirch, Shelby, RN RN Sagar Saab, PRAVEENA PHOTOGRAPHY TEACHER pm1 Andree German RN RN jg9 Corrections: (The following items were deleted from the chart) 11:22 11:22 Abdominal pain, unspecified pm1 pm1
[2022-05-25 11:56] VITALS: TEMP 97.6
[2022-05-25 12:00] VITALS: BP 99/68; O2SAT 98
--- NOTE | 2022-05-26 12:56 | EKG ---
Test Date: 2022-05-25 Test Time: 08:34:45 Playground Aide: YOAN MEASUREMENT RESULTS: Intervals: Rate: 56 WI: 144 QRSD: 98 QT: 412 QTc: 397 [place]: P: 38 WI: 144 QRS: 74 T: 61 INTERPRETIVE STATEMENTS: Sinus bradycardia with sinus arrhythmia Early repolarization Otherwise normal ECG Compared to ECG 02/28/2017 12:12:49 Early repolarization now present Sinus rhythm no longer present Electronically Signed On 05-26-22 12:55:13 CDT by Mayank Steinberg
== END 2022-05-25 11:49 | disposition home or self-care (01) ==
LOC: ER 08:18
DX: K80.80 Other cholelithiasis without obstruction (principal); F17.210 Nicotine dependence, cigarettes, uncomplicated; Z91.018 Allergy to other foods
CPT/HCPCS: 85025; 36415; 81003; 84484; 83690; 80053; 74177; 71045; Q9967; J7030; J3490; 93005

== ENCOUNTER 2022-12-08 17:22 | Emergency (ER) | payer BC ==
--- OUTSIDE RECORDS SUMMARY | 2022-12-08 17:25 | XMS REPORT | Continuity of Care Document ---
:[address] [facility] t Address [address] [place] [address] Care Team Providers Name Role Phone Latrice Antwan Mclaughlin Attending Clinician Jarrod SWAN, Ellie Cole Attending Clinician [phone] ELLIE GARAY Attending Clinician Unavailable Payers Payer Name Policy Type Policy Number Effective Date Expiration Date [id number] 2022 00:00:00 Problems Condition Condition Condition Status Onset Resolution Last Treating Co mments Source Name Details Category Date Date Treatment Clinician Date Depressive Depressiv Problem Active 2022-08-15 Memoria disorder e disorder 21:37:43 l (disorder) (disorder) He rmann [facility] Ju[facility] 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 Social History Smoking Status Start Date Stop Date Source Social History 2021-08-07 15:56:46 [facility] Her jo Medications Ordered Filled Start Stop Current Ordering Indication Dosage Frequency Signature Comments Components Source Medication Medication Date Date Medication? Clinician (SIG) Name Name escitalopra Yes See Moo mckeon m 20 mg 6-14 Instructio l oral tablet 15:01: ns, 1/2 Her jo 00 tab PO Daily 30 day, # 30 tab, 6 Refill(s), Pharmacy: [facility] STORE #[id number], 167.64, cm, 08/07/21 11:05:00 CDT, Height, 93.182, kg, 08/07/21 11:05:00 CDT, Weight escitalopra 2020-0 Yes See Memori a m 20 mg 9-10 Instructio l oral tablet 16:45: ns, 1/2 Her jo 00 tab PO Daily 30 day, # 30 tab, 6 Refill(s), Pharmacy: [facility] STORE #[id number], 167.64, cm, 08/07/21 11:05:00 CDT, Height, 93.182, kg, 08/07/21 11:05:00 CDT, Weight escitalopra 2019-11 Yes = 1 tab, Me moria m 20 mg 2-11 PO, Daily, l oral tablet 20:30: # 30 tab, H ermann 00 6 Refill(s), Pharmacy: [facility] STORE #[id number], 165.1, cm, 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/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, Height, 89.545, kg, 11/07/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, Weight lamotrigine 2019-11 Yes = 1 tab, Me moria 200 MG Oral 2-11 PO, BID, # l Tablet 20:30: 60 tab, 5 Dae n 00 Refill(s), Pharmacy: [facility] STORE #[id number], 165.1, cm, 11/07/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, Height, 89.545, kg, 11/07/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, Weight Levetiracet 2019-11 Yes See Memori a am 500 MG 1-12 Instructio l Oral Tablet 22:31: ns, TAKE 3 [place] 00 TABLETS BY MOUTH EVERY MORNING AND 4 TABLETS BY MOUTH EVERY EVENING, # 210 tab, 1 Refill(s), Pharmacy: [facility]01 STORE #[id number], 170.18, cm, 09/25/19 13:46:00 CDT, Height, 89.545, kg, 09/25/19 13:46:00 CDT, Weight Levetiracet 2018-11 Yes See Memori a am 500 MG 0-29 Instructio l Oral Tablet 19:17: ns, TAKE 3 [place] 07 TABLETS BY MOUTH EVERY MORNING AND 4 TABLETS EVERY EVENING, # 210 tab, 5 Refill(s), [facility][id number] lamotrigine 2018-11 Yes = 1 tab, Me moria 200 MG Oral 0-29 PO, BID, # l Tablet 19:17: 60 tab, 5 Dae n 03 Refill(s), Pharmacy: [facility] #[facility] Escitalopra 2018-11 Yes 20 mg = 1 M emoria m 20 MG 0-29 tab, PO, l Oral Tablet 19:17: Daily, # He rmann [Lexapro] 00 30 tab, 5 Refill(s), [facility] #[id number] Levetiracet Yes See Memori a am 500 MG 1-23 Instructio l Oral Tablet 15:09: ns, TAKE 3 [place] 57 TABLETS BY MOUTH EVERY MORNING AND 4 TABLETS BY MOUTH EVERY EVENING, # 210 tab, 6 Refill(s), [facility] lamotrigine Yes See Memori a 200 MG Oral 1-23 Instructio l Tablet 15:09: ns, TAKE 1 [place] 54 TABLET BY MOUTH TWICE DAILY, # 60 tab, 7 Refill(s), [facility] Levetiracet 2017-11 No See Memori a am 500 MG 2-29 Instructio l Oral Tablet 00:39: ns, # 210 H ermann 37 tab, TAKE 3 TABLETS BY MOUTH EVERY MORNING AND 4 TABLETS BY MOUTH EVERY EVENING, [facility] Levetiracet 2017-11 No See Memori a am 500 MG 1-01 Instructio l Oral Tablet 23:43: ns, # 210 H ermann 51 tab, Refill(s) 1, TAKE 3 TABLETS BY MOUTH EVERY MORNING AND 4 TABLETS BY MOUTH EVERY EVENING, [facility] lamotrigine 2017-11 No See Memori a 200 MG Oral 1-01 Instructio l Tablet 23:43: ns, # 214 Dae n 51 tab, Refill(s) 1, TAKE 1 TABLET BY MOUTH TWICE DAILY, [facility] Vital Signs Vital Name Observation Time Observation Value Comments Source Systolic (mm Hg) 2021-08-07 15:53:00 Yamil rial [place] Diastolic (mm Hg) 2021-08-07 15:53:00 Mem orial [place] Heart Rate 2021-08-07 15:53:00 [facility] [place] Respitory Rate 2021-08-07 15:53:00 Memori al [place] Height 2021-08-07 15:53:00 167.64 cm [facility] [place] Weight 2021-08-07 15:53:00 [facility] [place] BMI Calculated 2021-08-07 15:53:00 Memori al [place] Systolic (mm Hg) 2020-11-07 20:11:00 Yamil rial [place] Diastolic (mm Hg) 2020-11-07 20:11:00 Mem orial [place] Heart Rate 2020-11-07 20:11:00 [facility] [place] Respitory Rate 2020-11-07 20:11:00 Memori al [place] Height 2020-11-07 20:11:00 165.1 cm [facility] [place] Weight 2020-11-07 20:11:00 [facility] [place] BMI Calculated 2020-11-07 20:11:00 Memori al [place] Respitory Rate 2019-09-25 18:39:00 Memori al [place] Height 2019-09-25 18:39:00 170.18 cm [facility] [place] Weight 2019-09-25 18:39:00 [facility] [place] BMI Calculated 2019-09-25 18:39:00 Memori al [place] Systolic (mm Hg) 2019-09-25 18:39:00 Yamil rial [place] Diastolic (mm Hg) 2019-09-25 18:39:00 Mem orial [place] Heart Rate 2019-09-25 18:39:00 [facility] [place] Heart Rate 2018-12-20 14:55:00 [facility] [place] Systolic (mm Hg) 2018-12-20 14:55:00 Yamil rial [place] Diastolic (mm Hg) 2018-12-20 14:55:00 Mem orial [place] Weight 2018-12-20 14:55:00 [facility] [place] BMI Calculated 2018-12-20 14:55:00 Memori al [place] Height 2018-12-20 14:55:00 165.1 cm [facility] [place] Procedures This patient has no known procedures. Encounters Start End Encounter Admission Attending Care Care Encounter Source Date/Time Date/Time Type Type Clinicians Facility Department ID 2022-12-10 2022-12-10 Outpatient MHIE MHIE [id number] Memoria 14:30:00 14:30:00 12 samson Laguerre 2022-08-13 2022-08-13 Ambulatory nullFlavo MNA [id number] Memoria 14:15:00 14:15:00 Pre-Reg r Neurology 11 l Chilango Laguerre 2022-08-13 2022-08-13 Outpatient MHIE MHIE [id number] Memoria 09:15:00 09:15:00 11 samson Laguerre 2022-08-13 2022-08-13 Outpatient ANN PollardSCHER MHMISCHER [id number] 09:15:00 09:15:00 Antwan 11 Arnoldo 2022-05-06 2022-05-06 Office Ivan Garay [id number] Becky 10:30:00 11:00:00 Visit Ellie Patrick [id number] roque Cole [id number] 2022-05-06 2022-05-06 Outpatient BECKY GARAY [id number] Becky 00:00:00 00:00:00 ELLIE ugarte 2021-08-07 2021-08-08 Outpatient nullFlavo MNA [id number] Memoria 16:00:00 04:59:59 r Neurology 10 l Chilango Contehann 2021-08-07 2021-08-07 Outpatient NICOLE PollardMISCHER MISCHER [id number] 11:00:00 23:59:59 Antwan 10 Arnoldo 2021-08-07 2021-08-07 Outpatient MHIE MHIE [id number] Memoria 11:00:00 11:00:00 10 samson ContehShade 2020-11-07 2020-11-08 Outpatient nullFlavo MNA [id number] Memoria 19:45:00 05:59:59 r Neurology 09 l Chilango [place] 2020-11-07 2020-11-07 Outpatient NICOLE PollardMISCHER MHMISCHER [id number] 13:45:00 23:59:59 Antwan 09 Arnoldo 2020-11-07 2020-11-07 Outpatient MHIE MHIE [id number] Memoria 13:45:00 13:45:00 09 samson Laguerre 2020-09-09 2020-09-09 Ambulatory nullFlavo MNA [id number] Memoria 14:15:00 14:15:00 Pre-Reg r Neurology 08 l Chilango Contehann 2020-09-09 2020-09-09 Outpatient MHIE MHIE [id number] Memoria 09:15:00 09:15:00 08 samson Laguerre 2020-09-09 2020-09-09 [id number] 09:15:00 09:15:00 Antwan 08 Arnoldo 2020-06-17 2020-06-17 Ambulatory nullFlavo MNA [id number] Memoria 19:00:00 19:00:00 Pre-Reg r Neurology 06 l Chilango Contehann 2020-06-17 2020-06-17 Ambulatory nullFlavo MNA [id number] Memoria 19:00:00 19:00:00 Pre-Reg r Neurology 07 l Chilango Contehann 2020-06-17 2020-06-17 Outpatient MHIE IE [id number] Memoria 14:00:00 14:00:00 06 [place] 2020-06-17 2020-06-17 Outpatient MHIE MHIE [id number] Memoria 14:00:00 14:00:00 07 samson ContehSh[place] 2020-06-17 2020-06-17 [facility] [id number] 14:00:00 14:00:00 Antwan Luis Felipe Mclaughlin 2020-06-17 2020-06-17 [facility] [id number] 14:00:00 14:00:00 Antwan 06 Arnoldo 2019-12-28 2019-12-30 Outside nullFlavo MNA [id number] Memoria 20:20:23 05:59:59 Medical r Neurology 01 l Blaise [place] 2019-12-28 2019-12-29 Outpatient MHMISCHER MHMISCHER [id number] 14:20:23 23:59:59 2019-09-25 2019-09-26 Outpatient nullFlavo MNA [id number] Memoria 19:15:00 04:59:59 r Neurology 05 l Chilango Contehann 2019-09-25 2019-09-25 Outpatient Latrice [facility]ANK[facility]INSCHER MISCHER [id number] 14:15:00 23:59:59 Antwan 05 Arnoldo 2019-09-25 2019-09-25 Outpatient MHIE MHIE [id number] Memoria 14:15:00 14:15:00 05 samson [place] 2019-08-17 2019-08-17 Ambulatory nullFlavo MNA [id number] Memoria 16:45:00 16:45:00 Pre-Reg r Neurology 04 samson Chilango Laguerre 2019-08-17 2019-08-17 Outpatient MHIE MHIE [id number] Memoria 11:45:00 11:45:00 04 samson Laguerre 2019-08-17 2019-08-17 Outpatient Latrice MISCHER MISCHER [id number] 11:45:00 11:45:00 Antwan 04 Arnoldo 2019-06-19 2019-06-19 Ambulatory nullFlavo MNA [id number] Memoria 18:00:00 18:00:00 Pre-Reg r Neurology 03 samson Chilango Laguerre 2019-06-19 2019-06-19 Outpatient MHIE MHIE [id number] Memoria 13:00:00 13:00:00 03 samson Laguerre 2019-06-19 2019-06-19 Outpatient ANN PollardSCHER MISCHER [id number] 13:00:00 13:00:00 Antwan 03 Arnoldo 2018-12-20 2018-12-21 Outpatient nullFlavo MNA [id number] Memoria 14:45:00 05:59:59 r Neurology 02 samson Laguerre 2018-12-20 2018-12-20 Outpatient ANN PollardSCHER MISCHER [id number] 08:45:00 23:59:59 Antwan 02 Arnoldo 2018-12-20 2018-12-20 Outpatient MHIE MHIE [id number] Memoria 08:45:00 08:45:00 02 samson Laguerre 2018-12-14 2018-12-14 Ambulatory nullFlavo MNA [id number] Memoria 19:00:00 19:00:00 Pre-Reg r Neurology 01 samson Laguerre 2018-12-14 2018-12-14 Outpatient MHIE MHIE [id number] Memoria 13:00:00 13:00:00 01 samson Laguerre 2018-12-14 2018-12-14 Outpatient BILLY Pollard [facility] [id number] 13:00:00 13:00:00 Antwan Mclaughlin 2018-06-08 2018-06-08 Outpatient YVES SEKOU [id number] [facility] 13:45:00 13:45:00 00 samson [place] Results Test Description Test Time Test Comments Results Result Comments Source CHEM PANEL 2018-12-15 15:06:00 Test Item Value Reference Range Interpretation Comme nts BUN (test code = BUN) 12 7-25 [facility] [id number] 15:06:00 Test Item Value Reference Range Interpretation Comments Glucose Lvl (test code = Glucose Lvl) 57 65-99 [facility] [id number] 15:06:00 Test Item Value Reference Range Interpretation Comments ALANINE AMINOTRANSFERASE (test code = 12 6-29 ALANINE AMINOTRANSFERASE) [facility] [id number] 15:06:00 Test Item Value Reference Range Interpretation Comments ASPARTATE TRANSAMINASE (test code = 11 10-30 ASPARTATE TRANSAMINASE) [facility] [id number] 15:06:00 Test Item Value Reference Range Interpretation Comments CO2 (test code = CO2) 29 20-32 [facility] [id number] 15:06:00 Test Item Value Reference Range Interpretation Comments Total Protein (test code = Total 7.0 6.1-8.1 Protein) [facility] [id number] 15:06:00 Test Item Value Reference Range Interpretation Comments Albumin Lvl (test code = Albumin Lvl) 4.3 3.6-5.1 [facility] [id number] 15:06:00 Test Item Value Reference Range Interpretation Comments Creatinine Lvl (test code = Creatinine 0.78 0.50-1.10 Lvl) [facility] [id number] 15:06:00 Test Item Value Reference Range Interpretation Comments eGFR NON-AFR. SLOVAK (test code = 104 eGFR NON-AFR. SLOVAK) [facility] [id number] 15:06:00 Test Item Value Reference Range Interpretation Comments eGFR (test code = eGFR 121 ) [facility] [id number] 15:06:00 Test Item Value Reference Range Interpretation Comments Globulin (test code = Globulin) 2.7 1.9-3.7 [facility]2019-01-18 15:06:00 Test Item Value Reference Range Interpretation Comments A/G Ratio (test code = A/G Ratio) 1.6 1.0-2.5 [facility]2019-01-18 15:06:00 Test Item Value Reference Range Interpretation Comments Alk Phos (test code = Alk Phos) 73 33-115 [facility]2019-01-18 15:06:00 Test Item Value Reference Range Interpretation Comments Bili Total (test code = Bili Total) 0.3 0.2-1.2 [facility]2019-01-18 15:06:00 Test Item Value Reference Range Interpretation Comments Sodium Lvl (test code = Sodium Lvl) 140 135-146 [facility]2019-01-18 15:06:00 Test Item Value Reference Range Interpretation Comments B/C Ratio (test code = B/C NOT APPLICABLE 6-22 Ratio) [facility]2019-01-18 15:06:00 Test Item Value Reference Range Interpretation Comments Potassium Lvl (test code = Potassium 4.0 3.5-5.3 Lvl) [facility]2019-01-18 15:06:00 Test Item Value Reference Range Interpretation Comments Chloride Lvl (test code = Chloride Lvl) 103 98-110 [facility]2019-01-18 15:06:00 Test Item Value Reference Range Interpretation Comments Calcium Lvl (test code = Calcium Lvl) 9.4 8.6-10.2 [id number] 15:06:00 Test Item Value Reference Range Interpretation Comments Eosinophils (test code = Eosinophils) 3.5 [facility] [id number] 15:06:00 Test Item Value Reference Range Interpretation Comments Basophils (test code = Basophils) 0.7 [facility] [id number] 15:06:00 Test Item Value Reference Range Interpretation Comments Monocytes (test code = Monocytes) 6.5 [facility] C[id number] 15:06:00 Test Item Value Reference Range Interpretation Comments MCHC (test code = MCHC) 33.3 32.0-36.0 [facility] CenterGfylrekPWEZVQTEPE1952-29-25 15:06:00 Test Item Value Reference Range Interpretation Comments MCH (test code = MCH) 27.3 pg 27.0-33.0 [facility] CenterJndayfoWOVITQKFCX0870-27-07 15:06:00 Test Item Value Reference Range Interpretation Comments RDW (test code = RDW) 14.4 11.0-15.0 [facility] [id number] 15:06:00 Test Item Value Reference Range Interpretation Comments Platelet (test code = Platelet) 234 140-400 [facility] C[id number] 15:06:00 Test Item Value Reference Range Interpretation Comments Neutrophils # (test code = Neutrophils 7137 2820-4661 #) [facility] CenterQqwybotNVJUPWWYDJ4256-67-33 15:06:00 Test Item Value Reference Range Interpretation Comments Lymphocytes # (test code = Lymphocytes 1695 850-3900 #) [facility] CenterHihiukhFJUDVEWIHP6714-95-74 15:06:00 Test Item Value Reference Range Interpretation Comments Monocytes # (test code = Monocytes #) 722 200-950 [facility] CenterPqleimoWYVZGOZFNU9031-14-92 15:06:00 Test Item Value Reference Range Interpretation Comments MPV (test code = MPV) 11.5 7.5-12.5 [facility] CenterOvybxvqMTWKLPBTOB0750-06-59 15:06:00 Test Item Value Reference Range Interpretation Comments Eosinophils # (test code = Eosinophils 389 15-500 #) [facility] CenterUwwmdrwKJRPUCDGWE6146-77-95 15:06:00 Test Item Value Reference Range Interpretation Comments Basophils # (test code 78 See_Comment [Aut omated message] The = Basophils #) system which generated this result tra nsmitted reference range : <=200. The reference r may was not used to int erpret this result as normal/abnormal . [facility] CenterByuwfapXQWBRPMXJM7901-80-34 15:06:00 Test Item Value Reference Range Interpretation Comments WBC X 10x3 (test code = WBC X 10x3) 11.1 3.8-10.8 [facility] CenterZhzpzliXDINLOTLEK1723-61-00 15:06:00 Test Item Value Reference Range Interpretation Comments Lymphocytes (test code = Lymphocytes) 25.0 [facility] CenterVahmgxjHNGICEVHSI0602-33-10 15:06:00 Test Item Value Reference Range Interpretation Comments Segs (test code = Segs) 64.3 [facility] CenterXtxncwjOKPBQNFBSL3694-96-91 15:06:00 Test Item Value Reference Range Interpretation Comments Hgb (test code = Hgb) 14.1 11.7-15.5 [facility] CenterPoagfctUGCVXXSAIE7893-04-20 15:06:00 Test Item Value Reference Range Interpretation Comments RBC X 10x6 (test code = RBC X 10x6) 5.16 3.80-5.10 [facility] CenterNafeluxEBIYVVMVIZ0417-09-93 15:06:00 Test Item Value Reference Range Interpretation Comments MCV (test code = MCV) 82.2 80.0-100.0 [facility] CenterSczhoneAMCNZBXGOM7526-94-41 15:06:00 Test Item Value Reference Range Interpretation Comments Hct (test code = Hct) 42.4 35.0-45.0 [facility]TxhslxbVKVHIFWWNC0518-40-86 15:06:00 Test Item Value Reference Range Interpretation Comments Lamotrigine Lvl (test code = 10.2 4.0-18.0 Lamotrigine Lvl) [facility]
--- NOTE | 2022-12-08 18:05 | EDPHYS ---
Physician Documentation [facility] Name: Cora Marquez Age: 32 yrs Sex: Female : 1990 Arrival Date: 12/08/2022 Time: 17:23 Bed IW1 Private MD: ED Physician Deedee Beltrán HPI: 12/08 18:00 This 32 yrs old Female presents to ER via Ambulatory with complaints of Toothache. pm1 18:00 The patient presents with pain. The problem is located in the lower left third molar. pm1 Onset: The symptoms/episode began/occurred 1 week(s) ago. Duration: The symptoms are continuous. Modifying factors: The symptoms are alleviated by nothing, the symptoms are aggravated by chewing. Associated signs and symptoms: Pertinent positives: Left ear pain and left jaw pain, Pertinent negatives: swelling, facial. Severity of symptoms: in the emergency department the symptoms are actually worse. Aware of cavity to left third lower molar for multiple months, has not had an opportunity to address. The patient has not recently seen a physician. 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 - Social history:: Smoking status: Patient reports the use of cigarette tobacco products, smokes one-half pack cigarettes per day. ROS: 18:00 Constitutional: Negative for fever, chills, and weight loss. pm1 18:00 Cardiovascular: Negative for chest pain, palpitations, and edema, Respiratory: Negative for shortness of breath, cough, wheezing, and pleuritic chest pain, Abdomen/GI: Negative for abdominal pain, nausea, vomiting, diarrhea, and constipation, Back: Negative for injury and pain, MS/Extremity: Negative for injury and deformity, Skin: Negative for injury, rash, and discoloration, Neuro: Negative for headache, weakness, numbness, tingling, and seizure. 18:00 ENT: Positive for dental pain, ear pain. 18:00 All other systems are negative. Exam: 18:00 Constitutional: This is a well developed, well nourished patient who is awake, alert, pm1 and in no acute distress. Head/Face: Normocephalic, atraumatic. 18:00 Eyes: Exam is negative for acute changes, Periorbital structures: no acute changes, Extraocular movements: no acute changes, Conjunctiva: no acute changes, no injection. 18:00 ENT: External ear(s): no acute changes, Ear canal(s): no acute changes, TM's: no acute changes, Mouth: no acute changes, Lips: normal, moist, Oral mucosa: normal, pink and intact, moist, Posterior pharynx: no acute changes, Dental exam: dental caries, that is moderate, specifically in the lower left third molar (#17), Voice: no acute changes, Negative for trismus. 18:00 Cardiovascular: Exam negative for acute changes, Rate: normal, Rhythm: regular, Pulses: no pulse deficits are appreciated. 18:00 Respiratory: Exam negative for acute changes, respiratory distress, shortness of breath. Vital Signs: 17:56 BP 130 / 76; Pulse 84; Resp 18 S; Temp 98.0(TE); Pulse Ox 99% on R/A; Weight 90.72 kg aa5 (R); Height 5 ft. 5 in. (165.10 cm) (R); 17:56 Body Mass Index 33.28 (90.72 kg, 165.10 cm) aa5 MDM: 17:58 Patient medically screened. pm1 18:00 Differential diagnosis: dental caries, gingivitis, dental abscess. pm1 18:03 Data reviewed: vital signs. pm1 18:03 Counseling: I had a detailed discussion with the patient and/or guardian regarding: the pm1 historical points, exam findings, and any diagnostic results supporting the discharge/admit diagnosis, the need for outpatient follow up, a dentist, to return to the emergency department if symptoms worsen or persist or if there are any questions or concerns that arise at home. 18:11 ED course: PMPAware reviewed. pm1 Administered Medications: 18:17 Drug: [place] (HYDROcodone-acetaminophen) 10 mg-325 mg 1 tabs Route: PO; jh5 Disposition Summary: 12/08/22 18:05 Discharge Ordered Location: Home pm1 Problem: new pm1 Symptoms: have improved pm1 Condition: Stable pm1 Diagnosis - Dental pain pm1 Followup: pm1 - With: Emergency Department - When: As needed - Reason: Worsening of condition Followup: pm1 - With: Private Physician - When: 2 - 3 days - Reason: Recheck today's complaints, Continuance of care, Re-evaluation by your physician Discharge Instructions: - Discharge Summary Sheet pm1 - Dental Pain pm1 Forms: - Medication Reconciliation Form pm1 - Thank You Letter pm1 - Antibiotic Education pm1 - Prescription Opioid Use pm1 Prescriptions: - Amoxicillin 500 mg Oral Capsule - take 1 capsule by ORAL route every 8 hours for 10 days; 30 tablet; Refills: 0, pm1 Product Selection Permitted - Tylenol-Codeine #3 300 mg-30 mg Oral - take 2 tablet by ORAL route every 6 hours As needed; 20 tablet; Refills: 0, pm1 Product Selection Permitted Signatures: Kayli Cline, RN RN aa5 Sagar Merrill NP [employer] ADMINISTRATOR pm1 Iraida Castelan RN RN jh5
--- NOTE | 2022-12-08 18:05 | ER ---
Nurse's Notes [facility] Name: Cora Marquez Age: 32 yrs Sex: Female : 1990 Arrival Date: 12/08/2022 Time: 17:23 Bed IW1 Private MD: Diagnosis: Dental pain Presentation: 12/08 17:56 Chief complaint: Patient states: pain to left bottom molar that began 2 days ago, pain aa5 is radiating now to jaw and left ear. Coronavirus screen: At this time, the client does not indicate any symptoms associated with coronavirus-19. Ebola Screen: Patient denies travel to an Ebola-affected area in the 21 days before illness onset. Initial Sepsis Screen: Does the patient meet any 2 criteria? No. Patient's initial sepsis screen is negative. Does the patient have a suspected source of infection? No. Patient's initial sepsis screen is negative. Risk Assessment: Do you want to hurt yourself or someone else? Patient reports no desire to harm self or others. Onset of symptoms was 2022. 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 - Social history:: Smoking status: Patient reports the use of cigarette tobacco products, smokes one-half pack cigarettes per day. Vital Signs: 17:56 BP 130 / 76; Pulse 84; Resp 18 S; Temp 98.0(TE); Pulse Ox 99% on R/A; Weight 90.72 kg aa5 (R); Height 5 ft. 5 in. (165.10 cm) (R); 17:56 Body Mass Index 33.28 (90.72 kg, 165.10 cm) aa5 ED Course: 17:23 Patient arrived in ED. am2 17:56 Sagar Merrill NP is PHCP. pm1 17:56 Deedee eBltrán MD is Attending Physician. pm1 17:56 Arm band placed on. aa5 17:58 Triage completed. aa5 18:17 Patient did not have IV access during this emergency room visit. 5 Administered Medications: 18:17 Drug: [place] (HYDROcodone-acetaminophen) 10 mg-325 mg 1 tabs Route: PO; jh5 Outcome: 18:05 Discharge ordered by . pm1 18:17 Discharged to home ambulatory. 5 18:17 Condition: good 18:17 Discharge instructions given to patient, Instructed on discharge instructions, follow up and referral plans. medication usage, safety practices, Demonstrated understanding of instructions, follow-up care, medications, Prescriptions given X 2. 18:18 Patient left the ED. 5 Signatures: Kayli Cline, RN RN aa5 Sagar Merrill, [employer]IST pm1 Maribel Mccarthy am2 Iraida Castelan, RN RN 5
[2022-12-08] MEDS ORDERED: HYDROCODONE/APAP 10/325 TAB ONE (18:18)
[2022-12-08 18:27] VITALS: BP 130/76; TEMP 98; O2SAT 99
== END 2022-12-08 18:18 | disposition home or self-care (01) ==
LOC: ER 17:22
DX: K08.89 Other specified disorders of teeth and supporting structures (principal); Z91.018 Allergy to other foods
CPT/HCPCS: 99283

== ENCOUNTER 2022-12-28 08:07 | Emergency (ER) | payer BC ==
--- OUTSIDE RECORDS SUMMARY | 2022-12-28 08:11 | XMS REPORT | Continuity of Care Document ---
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 Social History Social Habit Start Date Stop Date Quantity Comments Source Social History 2022-12-10 2022-12-10 Eyal ma 21:07:42 21:07:42 Smoking Status Start Date Stop Date Source Tobacco smoking status 2022-12-10 20:38:40 Juanito Laguerre Medications Ordered Filled Start Stop Current Ordering Indication Dosage Frequency Signature Comments Components Source Medication Medication Date Date Medication? Clinician (SIG) Name Name levETIRAcet 2023-0 Yes See Memori a am 500 mg 1-11 Instructio l oral tablet 23:59: ns, TAKE 3 [place] 00 TABLETS BY MOUTH EVERY MORNING AND 4 TABLETS EVERY EVENING, # 210 tab, 2 Refill(s), [id number], 167.64, cm, 08/07/21 11:05:00 CDT, Height, 93.182, kg, 08/07/21 11:05:00 CDT, Weight lamoTRIgine 2021-0 Yes = 1 tab, Me moria 200 mg oral 9-04 PO, BID, # l tablet 19:40: 60 tab, 5 Dae n 00 Refill(s), Pharmacy: [facility] #[id number], 167.64, cm, 08/07/21 11:05:00 CDT, Height, 93.182, kg, 08/07/21 11:05:00 CDT, Weight escitalopra 2021-0 Yes See Memori a m 20 mg 6-14 Instructio l oral tablet 15:01: ns, 1/2 Her jo 00 tab PO Daily 30 day, # 30 tab, 6 Refill(s), Pharmacy: [facility] #[id number], 167.64, cm, 08/07/21 11:05:00 CDT, Height, 93.182, kg, 08/07/21 11:05:00 CDT, Weight escitalopra 2021-0 Yes See Memori a m 20 mg 6-14 Instructio l oral tablet 15:01: ns, 1/2 Her jo 00 tab PO Daily 30 day, # 30 tab, 6 Refill(s), Pharmacy: [facility] #[id number], 167.64, cm, 08/07/21 11:05:00 CDT, Height, 93.182, kg, 08/07/21 11:05:00 CDT, Weight escitalopra 2020-0 Yes See Memori a m 20 mg 9-10 Instructio l oral tablet 16:45: ns, 1/2 Her jo 00 tab PO Daily 30 day, # 30 tab, 6 Refill(s), Pharmacy: [facility] #[id number], 167.64, cm, 08/07/21 11:05:00 CDT, Height, 93.182, kg, 08/07/21 11:05:00 CDT, Weight escitalopra 2020-0 Yes See Memori a m 20 mg 9-10 Instructio l oral tablet 16:45: ns, 1/2 Her jo 00 tab PO Daily 30 day, # 30 tab, 6 Refill(s), Pharmacy: [facility] #[id number], 167.64, cm, 08/07/21 11:05:00 CDT, Height, 93.182, kg, 08/07/21 11:05:00 CDT, Weight escitalopra 2019- Yes = 1 tab, Me moria m 20 mg 2-11 PO, Daily, l oral tablet 20:30: # 30 tab, H ermann 00 6 Refill(s), Pharmacy: [facility] #[id number], 165.1, cm, 11/07/20 14:11:00 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, Height, 89.545, kg, 11/07/20 14:11:00 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, Weight lamotrigine 2019-11 Yes = 1 tab, Me moria 200 MG Oral 2-11 PO, BID, # l Tablet 20:30: 60 tab, 5 Dae n 00 Refill(s), [id number], 165.1, cm, 11/07/20 14:11:00 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, Height, 89.545, kg, 11/07/20 14:11:00 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, Weight escitalopra 2019-11 Yes = 1 tab, Me moria m 20 mg 2-11 PO, Daily, l oral tablet 20:30: # 30 tab, H ermann 00 6 Refill(s), [id number], 165.1, cm, 11/07/20 14:11:00 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, Height, 89.545, kg, 11/07/20 14:11:00 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, Weight lamotrigine 2019-11 Yes = 1 tab, Me moria 200 MG Oral 2-11 PO, BID, # l Tablet 20:30: 60 tab, 5 Dae n 00 Refill(s), [id number], 165.1, cm, 11/07/20 14:11:00 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, Height, 89.545, kg, 11/07/20 14:11:00 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, Weight Levetiracet 2019-11 Yes See Memori a am 500 MG 1-12 Instructio l Oral Tablet 22:31: ns, TAKE 3 [place] 00 TABLETS BY MOUTH EVERY MORNING AND 4 TABLETS BY MOUTH EVERY EVENING, # 210 tab, 1 Refill(s), Pharmacy: [facility] #[id number], 170.18, cm, 09/25/19 13:46:00 CDT, Height, 89.545, kg, 09/25/19 13:46:00 CDT, Weight Levetiracet 2019-11 Yes See Memori a am 500 MG 1-12 Instructio l Oral Tablet 22:31: ns, TAKE 3 [place] 00 TABLETS BY MOUTH EVERY MORNING AND 4 TABLETS BY MOUTH EVERY EVENING, # 210 tab, 1 Refill(s), Pharmacy: [facility] #[id number], 170.18, cm, 09/25/19 13:46:00 CDT, Height, 89.545, kg, 09/25/19 13:46:00 CDT, Weight Levetiracet 2018-11 Yes See Memori a am 500 MG 0-29 Instructio l Oral Tablet 19:17: ns, TAKE 3 [place] 07 TABLETS BY MOUTH EVERY MORNING AND 4 TABLETS EVERY EVENING, # 210 tab, 5 Refill(s), [facility][id number] Levetiracet 2018-11 Yes See Memori a am 500 MG 0-29 Instructio l Oral Tablet 19:17: ns, TAKE 3 [place] 07 TABLETS BY MOUTH EVERY MORNING AND 4 TABLETS EVERY EVENING, # 210 tab, 5 Refill(s), [facility][id number] lamotrigine 2018-11 Yes = 1 tab, Me moria 200 MG Oral 0-29 PO, BID, # l Tablet 19:17: 60 tab, 5 Dae n 03 Refill(s), [facility] #[id number] lamotrigine 2018-11 Yes = 1 tab, Me moria 200 MG Oral 0-29 PO, BID, # l Tablet 19:17: 60 tab, 5 Dae n 03 Refill(s), Pharmacy: [facility] #[id number] Escitalopra 2018-11 Yes 20 mg = 1 M emoria m 20 MG 0-29 tab, PO, l Oral Tablet 19:17: Daily, # Jason rmann [Lexapro] 00 30 tab, 5 Refill(s), Pharmacy: [facility] #[id number] Escitalopra 2018-11 Yes 20 mg = 1 M emoria m 20 MG 0-29 tab, PO, l Oral Tablet 19:17: Daily, # Jason rmann [Lexapro] 00 30 tab, 5 Refill(s), Pharmacy: [facility] #[facility] Levetiracet Yes See Memori a am 500 MG 1-23 Instructio l Oral Tablet 15:09: ns, TAKE 3 [place] 57 TABLETS BY MOUTH EVERY MORNING AND 4 TABLETS BY MOUTH EVERY EVENING, # 210 tab, 6 Refill(s), Pharmacy: [facility] [place] [address] Levetiracet Yes See Memori a am 500 MG 1-23 Instructio l Oral Tablet 15:09: ns, TAKE 3 [place] 57 TABLETS BY MOUTH EVERY MORNING AND 4 TABLETS BY MOUTH EVERY EVENING, # 210 tab, 6 Refill(s), Pharmacy: [facility] [place] [address] lamotrigine Yes See Memori a 200 MG Oral 1-23 Instructio l Tablet 15:09: ns, TAKE 1 Amee nn 54 TABLET BY MOUTH TWICE DAILY, # 60 tab, 7 Refill(s), Pharmacy: [facility] [place] [address] lamotrigine Yes See Memori a 200 MG Oral 1-23 Instructio l Tablet 15:09: ns, TAKE 1 Amee nn 54 TABLET BY MOUTH TWICE DAILY, # 60 tab, 7 Refill(s), Pharmacy: [facility] [place] [address] Levetiracet 2017-11 No See Memori a am 500 MG 2-29 Instructio l Oral Tablet 00:39: ns, # 210 H ermann 37 tab, TAKE 3 TABLETS BY MOUTH EVERY MORNING AND 4 TABLETS BY MOUTH EVERY EVENING, Pharmacy: [facility] [place] [address] Levetiracet 2017-11 No See Memori a am 500 MG 2-29 Instructio l Oral Tablet 00:39: ns, # 210 H ermann 37 tab, TAKE 3 TABLETS BY MOUTH EVERY MORNING AND 4 TABLETS BY MOUTH EVERY EVENING, [facility] Levetiracet 2017-11 No See Memori a am 500 MG 1-01 Instructio l Oral Tablet 23:43: ns, # 210 H ermann 51 tab, Refill(s) 1, TAKE 3 TABLETS BY MOUTH EVERY MORNING AND 4 TABLETS BY MOUTH EVERY EVENING, Pharmacy: [facility] lamotrigine 2017-11 No See Memori a 200 MG Oral 1-01 Instructio l Tablet 23:43: ns, # 214 Dae n 51 tab, Refill(s) 1, TAKE 1 TABLET BY MOUTH TWICE DAILY, [facility] Levetiracet 2017-11 No See Memori a am 500 MG 1-01 Instructio l Oral Tablet 23:43: ns, # 210 H ermann 51 tab, Refill(s) 1, TAKE 3 TABLETS BY MOUTH EVERY MORNING AND 4 TABLETS BY MOUTH EVERY EVENING, Pharmacy: [facility] lamotrigine 2017-11 No See Memori a 200 MG Oral 1-01 Instructio l Tablet 23:43: ns, # 214 Dae n 51 tab, Refill(s) 1, TAKE 1 TABLET BY MOUTH TWICE DAILY, Pharmacy: [facility] Vital Signs Vital Name Observation Time Observation Value Comments Source Systolic (mm Hg) 2022-12-10 20:37:00 Yamil rial [place] Diastolic (mm Hg) 2022-12-10 20:37:00 Mem orial [facility] Heart Rate 2022-12-10 20:37:00 [facility] 2022-12-10 20:37:00 5 [ft_i] [facility] Weight 2022-12-10 20:37:00 [facility] BMI Calculated 2022-12-10 20:37:00 Memori al [place] Systolic (mm Hg) 2021-08-07 15:53:00 Yamil rial [place] Diastolic (mm Hg) 2021-08-07 15:53:00 Mem orial [place] Heart Rate 2021-08-07 15:53:00 [facility] Respitory Rate 2021-08-07 15:53:00 Memori al [facility] Height 2021-08-07 15:53:00 167.64 cm [facility] Weight 2021-08-07 15:53:00 [facility] BMI Calculated 2021-08-07 15:53:00 Mem[facility] Systolic (mm Hg) 2020-11-07 20:11:00 Yamil rial [facility] Diastolic (mm Hg) 2020-11-07 20:11:00 Mem orial [facility] Heart Rate 2020-11-07 20:11:00 [facility] Respitory Rate 2020-11-07 20:11:00 [facility] [place] Height 2020-11-07 20:11:00 165.1 cm [facility] Weight 2020-11-07 20:11:00 [facility] BMI Calculated 2020-11-07 20:11:00 [facility] Systolic (mm Hg) 2019-09-25 18:39:00 Yamil rial [place] Diastolic (mm Hg) 2019-09-25 18:39:00 Mem orial [place] Heart Rate 2019-09-25 18:39:00 [facility] Respitory Rate 2019-09-25 18:39:00 [facility] Height 2019-09-25 18:39:00 170.18 cm [facility] Weight 2019-09-25 18:39:00 [facility] BMI Calculated 2019-09-25 18:39:00 [facility] Heart Rate 2018-12-20 14:55:00 [facility] Systolic (mm Hg) 2018-12-20 14:55:00 Yamil rial [place] Diastolic (mm Hg) 2018-12-20 14:55:00 Mem orial [facility] Weight 2018-12-20 14:55:00 [facility] BMI Calculated 2018-12-20 14:55:00 Memori [facility] Height 2018-12-20 14:55:00 165.1 cm [facility] Procedures This patient has no known procedures. Encounters Start End Encounter Admission Attending Care Care Encounter Source Date/Time Date/Time Type Type Clinicians Facility Department ID 2023-12-13 2023-12-13 Outpatient YVES MARINELLI [id number] Memoria 09:00:00 09:00:00 13 l [place] 2022-12-10 2022-12-11 Outpatient YVES SCHMID [id number] Memoria 20:30:00 05:59:59 Neurology 12 l Chilango Laguerre 2022-12-10 2022-12-10 Outpatient CLAUDETTE PollardER MHMISCHER [id number] 14:30:00 23:59:59 Antwan 12 Arnoldo 2022-12-10 2022-12-10 Outpatient MHIE MHIE [id number] Memoria 14:30:00 14:30:00 12 samson Laguerre 2022-12-10 2022-12-10 Outpatient MHIE MHIE [id number] Memoria 14:30:00 14:30:00 12 samson Laguerer 2022-08-13 2022-08-13 Ambulatory nullFlavo MNA [id number] Memoria 14:15:00 14:15:00 Pre-Reg r Neurology 11 l Chilango Laguerre 2022-08-13 2022-08-13 Ambulatory nullFlavo MNA [id number] Memoria 14:15:00 14:15:00 Pre-Reg r Neurology 11 l Chilango Contehann 2022-08-13 2022-08-13 Outpatient MHIE MHIE [id number] Memoria 09:15:00 09:15:00 11 samson Laguerre 2022-08-13 2022-08-13 [id number] 09:15:00 09:15:00 Antwan 11 Arnoldo 2022-05-06 2022-05-06 Office Ivan Garay [id number] Becky 10:30:00 11:00:00 Visit Ellie Patrick [id number] Se roque Cole [id number] 2022-05-06 2022-05-06 Outpatient BECKY GARAY [id number] Becky 00:00:00 00:00:00 ELLIE ugarte 2021-08-07 2021-08-08 Outpatient nullFlavo MNA [id number] Memoria 16:00:00 04:59:59 r Neurology 10 l Amite [place] 2021-08-07 2021-08-08 Outpatient nullFlavo MNA [id number] Memoria 16:00:00 04:59:59 r Neurology 10 l Amite [place] 2021-08-07 2021-08-07 [facility] [id number] 11:00:00 23:59:59 Antwan 10 Arnoldo 2021-08-07 2021-08-07 Outpatient MHIE MHIE [id number] Memoria 11:00:00 11:00:00 10 samson Laguerre 2020-11-07 2020-11-08 Outpatient nullFlavo MNA [id number] Memoria 19:45:00 05:59:59 r Neurology 09 l Chilango Laguerre 2020-11-07 2020-11-08 Outpatient nullFlavo MNA [id number] Memoria 19:45:00 05:59:59 r Neurology 09 l Chilango Laguerre 2020-11-07 2020-11-07 [facility] [id number] 13:45:00 23:59:59 Antwan 09 Arnoldo 2020-11-07 2020-11-07 Outpatient MHIE MHIE [id number] Memoria 13:45:00 13:45:00 09 samson [place] 2020-09-09 2020-09-09 Ambulatory nullFlavo MNA [id number] Memoria 14:15:00 14:15:00 Pre-Reg r Neurology 08 l Chilango [place] 2020-09-09 2020-09-09 Ambulatory nullFlavo MNA [id number] Memoria 14:15:00 14:15:00 Pre-Reg r Neurology 08 l Chilango [facility] 2020-09-09 2020-09-09 Outpatient MHIE MHIE [id number] Memoria 09:15:00 09:15:00 08 samson [place] 2020-09-09 2020-09-09 Outpatient Latrice [facility] [id number] 09:15:00 09:15:00 Antwan 08 Arnoldo 2020-06-17 2020-06-17 Ambulatory nullFlavo MNA [id number] Memoria 19:00:00 19:00:00 Pre-Reg r Neurology 06 l Amitemary Laguerre 2020-06-17 2020-06-17 Ambulatory nullFlavo MNA [id number] Memoria 19:00:00 19:00:00 Pre-Reg r Neurology 07 l Amitemary Laguerre 2020-06-17 2020-06-17 Ambulatory nullFlavo MNA [id number] Memoria 19:00:00 19:00:00 Pre-Reg r Neurology 06 l Amitemary Laguerre 2020-06-17 2020-06-17 Ambulatory nullFlavo MNA [id number] Memoria 19:00:00 19:00:00 Pre-Reg r Neurology 07 l Chilango Laguerre 2020-06-17 2020-06-17 Outpatient MHIE MHIE [id number] Memoria 14:00:00 14:00:00 06 samson Laguerre 2020-06-17 2020-06-17 Outpatient MHIE MHIE [id number] Memoria 14:00:00 14:00:00 07 samson Laguerre 2020-06-17 2020-06-17 Outpatient Latrice [facility]HMISCHER M[facility]ISCHER [id number] 14:00:00 14:00:00 Antwan 07 Arnoldo 2020-06-17 2020-06-17 Outpatient Latrice MHMISCHER M[facility]ISCHER [id number] 14:00:00 14:00:00 Antwan Parker Mclaughlin 2019-12-28 2019-12-30 Outside nullFlavo MNA [id number] Memoria 20:20:23 05:59:59 Medical r Neurology 01 l Records Chilango Laguerre 2019-12-28 2019-12-30 Outside nullFlavo MNA [id number] Memoria 20:20:23 05:59:59 Medical r Neurology 01 l Records Chilango Laguerre 2019-12-28 2019-12-29 Outpatient MHMISCHER MHMISCHER [id number] 14:20:23 23:59:59 2019-09-25 2019-09-26 Outpatient nullFlavo MNA [id number] Memoria 19:15:00 04:59:59 r Neurology 05 samson Laguerre 2019-09-25 2019-09-26 Outpatient nullFlavo MNA [id number] Memoria 19:15:00 04:59:59 r Neurology 05 samson Laguerre 2019-09-25 2019-09-25 [id number] 14:15:00 23:59:59 Antwan Lewis Mclaughlin 2019-09-25 2019-09-25 Outpatient MHIE MHIE [id number] Memoria 14:15:00 14:15:00 05 samson Laguerre 2019-08-17 2019-08-17 Ambulatory nullFlavo MNA [id number] Memoria 16:45:00 16:45:00 Pre-Reg r Neurology 04 samson Laguerre 2019-08-17 2019-08-17 Ambulatory nullFlavo MNA [id number] Memoria 16:45:00 16:45:00 Pre-Reg r Neurology 04 samson Laguerre 2019-08-17 2019-08-17 Outpatient MHIE MHIE [id number] Memoria 11:45:00 11:45:00 04 samson Laguerre 2019-08-17 2019-08-17 [facility] [id number] 11:45:00 11:45:00 Antwan Augusta Mclaughlin 2019-06-19 2019-06-19 Ambulatory nullFlavo MNA [id number] Memoria 18:00:00 18:00:00 Pre-Reg r Neurology 03 samson Laguerre 2019-06-19 2019-06-19 Ambulatory nullFlavo MNA [id number] Memoria 18:00:00 18:00:00 Pre-Reg r Neurology 03 samson Laguerre 2019-06-19 2019-06-19 Outpatient MHIE MHIE [id number] Memoria 13:00:00 13:00:00 03 samson Laguerre 2019-06-19 2019-06-19 [facility] [id number] 13:00:00 13:00:00 Antwan Jeremiah Mclaughlin 2018-12-20 2018-12-21 Outpatient nullFlavo MNA [id number] Memoria 14:45:00 05:59:59 r Neurology 02 samson Laguerre 2018-12-20 2018-12-21 Outpatient nullFlavo MNA [id number] Memoria 14:45:00 05:59:59 r Neurology 02 samson Laguerre 2018-12-20 2018-12-20 [facility] [id number] 08:45:00 23:59:59 Antwan 02 Arnoldo 2018-12-20 2018-12-20 Outpatient MHIE MHIE [id number] Memoria 08:45:00 08:45:00 02 samson Laguerre 2018-12-14 2018-12-14 Ambulatory nullFlavo MNA [id number] Memoria 19:00:00 19:00:00 Pre-Reg r Neurology 01 samson Laguerre 2018-12-14 2018-12-14 Ambulatory nullFlavo MNA [id number] Memoria 19:00:00 19:00:00 Pre-Reg r Neurology 01 samson Kee [facility] 2018-12-14 2018-12-14 Outpatient IE IE [id number] Memoria 13:00:00 13:00:00 01 samson [place] 2018-12-14 2018-12-14 Outpatient Latrice, [facility] [id number] 13:00:00 13:00:00 Antwan Karen Arnoldo 2018-06-08 2018-06-08 Outpatient SEKOU [facility] [id number] Memoria 13:45:00 13:45:00 00 samson [place] 2018-06-08 2018-06-08 Outpatient SEKOU SEKOU [id number] Memoria 13:45:00 13:45:00 00 samson [facility] Results Test Description Test Time Test Comments Results Result Comments Source CHEM [facility] 2018-12-15 15:06:00 Test Item Value Reference Range Interpretation Comme nts BUN (test code = BUN) 12 7-25 [facility] [employer] [id number] 15:06:00 Test Item Value Reference Range Interpretation Comments Glucose Lvl (test code = Glucose Lvl) 57 65-99 [facility] [employer] [id number] 15:06:00 Test Item Value Reference Range Interpretation Comments ALANINE AMINOTRANSFERASE (test code = 12 6-29 ALANINE AMINOTRANSFERASE) [facility] [employer] [id number] 15:06:00 Test Item Value Reference Range Interpretation Comments ASPARTATE TRANSAMINASE (test code = 11 10-30 ASPARTATE TRANSAMINASE) [facility] [employer] [id number] 15:06:00 Test Item Value Reference Range Interpretation Comments CO2 (test code = CO2) 29 20-32 [facility] [employer] [id number] 15:06:00 Test Item Value Reference Range Interpretation Comments Total Protein (test code = Total 7.0 6.1-8.1 Protein) [facility] [employer] [id number] 15:06:00 Test Item Value Reference Range Interpretation Comments Albumin Lvl (test code = Albumin Lvl) 4.3 3.6-5.1 [facility] [employer] [id number] 15:06:00 Test Item Value Reference Range Interpretation Comments Creatinine Lvl (test code = Creatinine 0.78 0.50-1.10 Lvl) [facility]2019-01-18 15:06:00 Test Item Value Reference Range Interpretation Comments eGFR NON-AFR. [place] (test code = 104 eGFR NON-AFR. P[place]) [facility]2019-01-18 15:06:00 Test Item Value Reference Range Interpretation Comments eGFR (test code = eGFR 121 ) [facility]2019-01-18 15:06:00 Test Item Value Reference Range Interpretation Comments Globulin (test code = Globulin) 2.7 1.9-3.7 [facility]2019-01-18 15:06:00 Test Item Value Reference Range Interpretation Comments A/G Ratio (test code = A/G Ratio) 1.6 1.0-2.5 [facility]2019-01-18 15:06:00 Test Item Value Reference Range Interpretation Comments Alk Phos (test code = Alk Phos) 73 33-115 [facility]2019-01-18 15:06:00 Test Item Value Reference Range Interpretation Comments Bili Total (test code = Bili Total) 0.3 0.2-1.2 [facility]2019-01-18 15:06:00 Test Item Value Reference Range Interpretation Comments Sodium Lvl (test code = Sodium Lvl) 140 135-146 [facility]2019-01-18 15:06:00 Test Item Value Reference Range Interpretation Comments B/C Ratio (test code = B/C NOT APPLICABLE 6-22 Ratio) [facility]2019-01-18 15:06:00 Test Item Value Reference Range Interpretation Comments Potassium Lvl (test code = Potassium 4.0 3.5-5.3 Lvl) [facility]2019-01-18 15:06:00 Test Item Value Reference Range Interpretation Comments Chloride Lvl (test code = Chloride Lvl) 103 98-110 [facility]2019-01-18 15:06:00 Test Item Value Reference Range Interpretation Comments Calcium Lvl (test code = Calcium Lvl) 9.4 8.6-10.2 [id number] 15:06:00 Test Item Value Reference Range Interpretation Comments Eosinophils (test code = Eosinophils) 3.5 [id number] 15:06:00 Test Item Value Reference Range Interpretation Comments Basophils (test code = Basophils) 0.7 [id number] 15:06:00 Test Item Value Reference Range Interpretation Comments Monocytes (test code = Monocytes) 6.5 [id number] 15:06:00 Test Item Value Reference Range Interpretation Comments MCHC (test code = MCHC) 33.3 32.0-36.0 [id number] 15:06:00 Test Item Value Reference Range Interpretation Comments MCH (test code = MCH) 27.3 pg 27.0-33.0 [id number] 15:06:00 Test Item Value Reference Range Interpretation Comments RDW (test code = RDW) 14.4 11.0-15.0 [facility] [id number] 15:06:00 Test Item Value Reference Range Interpretation Comments Platelet (test code = Platelet) 234 140-400 [facility] HospitalSmiwtbaJALDJKFXJL4520-21-82 15:06:00 Test Item Value Reference Range Interpretation Comments Neutrophils # (test code = Neutrophils 7137 5782-9650 #) [facility] HospitalAzwyqdsZHWRYWJIWF5046-70-03 15:06:00 Test Item Value Reference Range Interpretation Comments Lymphocytes # (test code = Lymphocytes 2775 850-3900 #) [facility] HospitalUaznvtcNTMBKMIYHI5483-86-66 15:06:00 Test Item Value Reference Range Interpretation Comments Monocytes # (test code = Monocytes #) 722 200-950 [facility] HospitalFapgsfzMIVOYBCGJH2615-97-29 15:06:00 Test Item Value Reference Range Interpretation Comments MPV (test code = MPV) 11.5 7.5-12.5 [facility] [id number] 15:06:00 Test Item Value Reference Range Interpretation Comments Eosinophils # (test code = Eosinophils 389 15-500 #) [facility]NlncftxBDAIHGJSII7959-76-80 15:06:00 Test Item Value Reference Range Interpretation Comments Basophils # (test code 78 See_Comment [Aut omated message] The = Basophils #) system which generated this result tra nsmitted reference range : <=200. The reference r may was not used to int erpret this result as normal/abnormal . [facility] HospitalCcpbtuaMNLGRAZWTT9113-06-98 15:06:00 Test Item Value Reference Range Interpretation Comments WBC X 10x3 (test code = WBC X 10x3) 11.1 3.8-10.8 [facility] HospitalZbvnawuUMQJWPXPVS9413-23-77 15:06:00 Test Item Value Reference Range Interpretation Comments Lymphocytes (test code = Lymphocytes) 25.0 [facility]2019-01-18 15:06:00 Test Item Value Reference Range Interpretation Comments BUN (test code = BUN) 12 7-25 [facility]KtkmiboCQPSYWXOZH8377-90-04 15:06:00 Test Item Value Reference Range Interpretation Comments Segs (test code = Segs) 64.3 [facility]OzpljqbZVUGWAEFWF3081-96-30 15:06:00 Test Item Value Reference Range Interpretation Comments Hgb (test code = Hgb) 14.1 11.7-15.5 [facility]OceaqmbBSLDCMAPDU1062-52-50 15:06:00 Test Item Value Reference Range Interpretation Comments RBC X 10x6 (test code = RBC X 10x6) 5.16 3.80-5.10 [facility]BjtikxlOMDIRQDCDU1232-09-78 15:06:00 Test Item Value Reference Range Interpretation Comments MCV (test code = MCV) 82.2 80.0-100.0 [facility] HospitalWujaqtlSSEYYIUSBA7088-97-59 15:06:00 Test Item Value Reference Range Interpretation Comments Hct (test code = Hct) 42.4 35.0-45.0 [facility]PxxrbgrFWCECMXBOU2644-03-87 15:06:00 Test Item Value Reference Range Interpretation Comments Lamotrigine Lvl (test code = 10.2 4.0-18.0 Lamotrigine Lvl) [facility]2019-01-18 15:06:00 Test Item Value Reference Range Interpretation Comments Glucose Lvl (test code = Glucose Lvl) 57 65-99 [facility]2019-01-18 15:06:00 Test Item Value Reference Range Interpretation Comments ALANINE AMINOTRANSFERASE (test code = 12 6-29 ALANINE AMINOTRANSFERASE) [facility]2019-01-18 15:06:00 Test Item Value Reference Range Interpretation Comments ASPARTATE TRANSAMINASE (test code = 11 10-30 ASPARTATE TRANSAMINASE) [facility]2019-01-18 15:06:00 Test Item Value Reference Range Interpretation Comments CO2 (test code = CO2) 29 20-32 [facility]2019-01-18 15:06:00 Test Item Value Reference Range Interpretation Comments Total Protein (test code = Total 7.0 6.1-8.1 Protein) [facility]2019-01-18 15:06:00 Test Item Value Reference Range Interpretation Comments Albumin Lvl (test code = Albumin Lvl) 4.3 3.6-5.1 [facility]2019-01-18 15:06:00 Test Item Value Reference Range Interpretation Comments Creatinine Lvl (test code = Creatinine 0.78 0.50-1.10 Lvl) [facility]2019-01-18 15:06:00 Test Item Value Reference Range Interpretation Comments eGFR NON-AFR. [place] (test code = 104 eGFR NON-AFR. P[place]) [facility]2019-01-18 15:06:00 Test Item Value Reference Range Interpretation Comments eGFR (test code = eGFR 121 ) [facility]2019-01-18 15:06:00 Test Item Value Reference Range Interpretation Comments Globulin (test code = Globulin) 2.7 1.9-3.7 [facility]2019-01-18 15:06:00 Test Item Value Reference Range Interpretation Comments A/G Ratio (test code = A/G Ratio) 1.6 1.0-2.5 [facility]2019-01-18 15:06:00 Test Item Value Reference Range Interpretation Comments Alk Phos (test code = Alk Phos) 73 33-115 [facility]2019-01-18 15:06:00 Test Item Value Reference Range Interpretation Comments Bili Total (test code = Bili Total) 0.3 0.2-1.2 [facility]2019-01-18 15:06:00 Test Item Value Reference Range Interpretation Comments Sodium Lvl (test code = Sodium Lvl) 140 135-146 [facility]2019-01-18 15:06:00 Test Item Value Reference Range Interpretation Comments B/C Ratio (test code = B/C NOT APPLICABLE 6-22 Ratio) [facility]2019-01-18 15:06:00 Test Item Value Reference Range Interpretation Comments Potassium Lvl (test code = Potassium 4.0 3.5-5.3 Lvl) [facility]2019-01-18 15:06:00 Test Item Value Reference Range Interpretation Comments Chloride Lvl (test code = Chloride Lvl) 103 98-110 [facility] HospitalCHEM [id number] 15:06:00 Test Item Value Reference Range Interpretation Comments Calcium Lvl (test code = Calcium Lvl) 9.4 8.6-10.2 [facility]ZrfkohbUBGGMGFPYC2673-23-67 15:06:00 Test Item Value Reference Range Interpretation Comments Eosinophils (test code = Eosinophils) 3.5 [facility] HospitalPxrgfsaBDTVMMXGDY5608-40-60 15:06:00 Test Item Value Reference Range Interpretation Comments Basophils (test code = Basophils) 0.7 [facility] HospitalVebpstrARPVSYTIMV1677-84-88 15:06:00 Test Item Value Reference Range Interpretation Comments Monocytes (test code = Monocytes) 6.5 [facility] HospitalGaqikwaDFNTJNRRKY0663-80-60 15:06:00 Test Item Value Reference Range Interpretation Comments MCHC (test code = MCHC) 33.3 32.0-36.0 [facility] HospitalPwvbwmpGPJYCPAPHB6995-85-93 15:06:00 Test Item Value Reference Range Interpretation Comments MCH (test code = MCH) 27.3 pg 27.0-33.0 [facility] HospitalYendwtnKKCCLROZLZ7369-49-14 15:06:00 Test Item Value Reference Range Interpretation Comments RDW (test code = RDW) 14.4 11.0-15.0 [facility] HospitalUmgixdtARDCSMUAKM4634-92-67 15:06:00 Test Item Value Reference Range Interpretation Comments Platelet (test code = Platelet) 234 140-400 [facility] HospitalAgdkmpeUQNZGVDEEJ8857-71-92 15:06:00 Test Item Value Reference Range Interpretation Comments Neutrophils # (test code = Neutrophils 7537 7077-9220 #) [facility] HospitalIsrdhieCQEBPYSOMF3209-25-42 15:06:00 Test Item Value Reference Range Interpretation Comments Lymphocytes # (test code = Lymphocytes 4058 850-3900 #) [facility] HospitalGjkeisoNDTTIBFSPB4064-15-54 15:06:00 Test Item Value Reference Range Interpretation Comments Monocytes # (test code = Monocytes #) 432 200-950 [facility] HospitalWtdoyhfEWEQTJYYRJ3037-62-14 15:06:00 Test Item Value Reference Range Interpretation Comments MPV (test code = MPV) 11.5 7.5-12.5 [facility] HospitalHpkuyzjZOESYVICXU5233-77-53 15:06:00 Test Item Value Reference Range Interpretation Comments Eosinophils # (test code = Eosinophils 389 15-500 #) [facility] HospitalFmkrflrGZCCATDSDX5759-45-73 15:06:00 Test Item Value Reference Range Interpretation Comments Basophils # (test code 78 See_Comment [Aut omated message] The = Basophils #) system which generated this result tra nsmitted reference range : <=200. The reference r may was not used to int erpret this result as normal/abnormal . [facility] HospitalHuwfiuhXLHLYDXICD7355-43-60 15:06:00 Test Item Value Reference Range Interpretation Comments WBC X 10x3 (test code = WBC X 10x3) 11.1 3.8-10.8 [facility] HospitalVbztnlzLWHVRCMZXA7185-30-64 15:06:00 Test Item Value Reference Range Interpretation Comments Lymphocytes (test code = Lymphocytes) 25.0 [facility] HospitalSzixaiuSDHVZJMXMX7967-95-06 15:06:00 Test Item Value Reference Range Interpretation Comments Segs (test code = Segs) 64.3 [facility] HospitalZcldqxrGYHPEPBQLP2336-64-02 15:06:00 Test Item Value Reference Range Interpretation Comments Hgb (test code = Hgb) 14.1 11.7-15.5 [facility] HospitalObatabuHCNBEHWEBR3917-07-21 15:06:00 Test Item Value Reference Range Interpretation Comments RBC X 10x6 (test code = RBC X 10x6) 5.16 3.80-5.10 [facility] HospitalGvvqrpvNKZFRWKKDW5528-89-67 15:06:00 Test Item Value Reference Range Interpretation Comments MCV (test code = MCV) 82.2 80.0-100.0 [facility] HospitalHtfegotKMFDZPSHHN4540-80-15 15:06:00 Test Item Value Reference Range Interpretation Comments Hct (test code = Hct) 42.4 35.0-45.0 [facility] HospitalEyhltqaSNULPXVDHV5115-79-19 15:06:00 Test Item Value Reference Range Interpretation Comments Lamotrigine Lvl (test code = 10.2 4.0-18.0 Lamotrigine Lvl) [facility]
--- NOTE | 2022-12-28 08:26 | EDPHYS ---
Physician Documentation [facility] Name: Cora Marquez Age: 32 yrs Sex: Female : 1990 Arrival Date: 12/28/2022 Time: 08:11 Bed 14 Private MD: ED Physician Doug Hernandez HPI: 12/28 08:20 This 32 yrs old Female presents to ER via Unassigned with complaints of Toothache. rn 08:20 The patient presents with pain. The problem is located in the left lower molar. Onset: rn The symptoms/episode began/occurred 1 week(s) ago. Duration: The symptoms are intermittent. Modifying factors: The symptoms are alleviated by nothing, the symptoms are aggravated by chewing, cold fluids, food. Associated signs and symptoms: Pertinent positives: pain, Pertinent negatives: fever, inability to eat, swelling. Severity of symptoms: At their worst the symptoms were moderate, in the emergency department the symptoms are unchanged. The patient has experienced similar episodes in the past. The patient has not recently seen a physician. Pt reports intermittent left lower molar pain for 2 weeks, became worse and constant last couple of days, hurts to drink and eat. No swelling. No fever. . Historical: - Allergies: 08:22 avocado; aa5 08:22 olive extract; aa5 - PMHx: 08:22 Anxiety; Depression; epilepsy; ocd; Seizures; aa5 - PSHx: 08:22 section; tubal ligation; aa5 - Immunization history:: Adult Immunizations unknown. - Social history:: Smoking status: Patient reports the use of cigarette tobacco products. - Family history:: not pertinent. - Hospitalizations: : No recent hospitalization is reported. ROS: 08:20 Constitutional: Negative for fever, chills, and weight loss, ENT: + left lower molar rn pain Neck: Negative for injury, pain, and swelling, Respiratory: Negative for shortness of breath, cough, wheezing, and pleuritic chest pain, Neuro: Negative for headache, weakness, numbness, tingling, and seizure. Exam: 08:20 Constitutional: This is a well developed, well nourished patient who is awake, alert, rn and in no acute distress. ENT: Left lower molar with enamel missing and dentin exposed, no swelling, no evidence of abscess Neck: Trachea midline, no masses palpated, + left anterior cervical lymphadenopathy with mild tenderness, no crepitus. Supple, full range of motion without nuchal rigidity, or vertebral point tenderness. No Meningismus. Vital Signs: 08:12 BP 132 / 94; Pulse 80; Resp 18 S; Temp 98.8(O); Pulse Ox 100% on R/A; aa5 MDM: 08:12 Patient medically screened. [facility] 08:25 Differential diagnosis: dental caries, dental abscess. Data reviewed: vital signs, rn nurses notes, and as a result, I will discharge patient. Counseling: I had a detailed discussion with the patient and/or guardian regarding: the historical points, exam findings, and any diagnostic results supporting the discharge/admit diagnosis, the need for outpatient follow up, to return to the emergency department if symptoms worsen or persist or if there are any questions or concerns that arise at home. Special discussion: I discussed with the patient/guardian in detail that at this point there is no indication for admission to the hospital. It is understood, however, that if the symptoms persist or worsen the patient needs to return immediately for re-evaluation. Based on the history and exam findings, there is no indication for further emergent testing or inpatient evaluation. I discussed with the patient/guardian the need to see a dentist for further evaluation of the symptoms. Administered Medications: 08:45 Drug: Ketorolac 30 mg Route: IM; Site: right gluteus; bp 09:06 Follow up: Response: No adverse reaction bp 08:45 Drug: Decadron (dexamethasone) 10 mg Route: IM; Site: right gluteus; bp 09:06 Follow up: Response: No adverse reaction bp Disposition Summary: 12/28/22 08:26 Discharge Ordered Location: Home rn Problem: new rn Symptoms: have improved rn Condition: Stable rn Diagnosis - Dental caries, unspecified rn Followup: rn - With: Private Physician - When: As needed - Reason: Recheck today's complaints, Re-evaluation by your physician Discharge Instructions: - Discharge Summary Sheet rn - Dental Caries, Adult rn - Dental Pain rn Forms: - Work release form bd - Medication Reconciliation Form rn - Thank You Letter rn - Antibiotic agriculture internship - Prescription Opioid Use rn Prescriptions: - Clindamycin HCl 300 mg Oral Capsule - take 1 capsule by ORAL route every 6 hours for 10 days; 40 capsule; Refills: 0, rn Product Selection Permitted - Medrol (Willy) 4 mg Oral Tablets, Dose Pack - take 1 tablet by ORAL route as directed - follow package instructions; 1 rn packet; Refills: 0, Product Selection Permitted Signatures: Doug Hernandez MD MD rn Calderon, Audri, RAFAL RN aa5 Yang Cerda RN RN Andree Kenney, PASTEURIZING SUPERVISOR PASTEURIZING SUPERVISOR [email or web address]
--- NOTE | 2022-12-28 08:26 | ER ---
Nurse's Notes [facility] Name: Cora Marquez Age: 32 yrs Sex: Female : 1990 Arrival Date: 12/28/2022 Time: 08:11 Bed 14 Private MD: Diagnosis: Dental caries, unspecified Presentation: 12/28 08:12 Chief complaint: Patient states: toothache that began "a few days ago". aa5 08:12 Coronavirus screen: At this time, the client does not indicate any symptoms associated aa5 with coronavirus-19. Ebola Screen: Patient denies travel to an Ebola-affected area in the 21 days before illness onset. Initial Sepsis Screen: Does the patient meet any 2 criteria? No. Patient's initial sepsis screen is negative. Does the patient have a suspected source of infection? No. Patient's initial sepsis screen is negative. Risk Assessment: Do you want to hurt yourself or someone else? Patient reports no desire to harm self or others. Onset of symptoms was November 2022. 08:12 Method Of Arrival: Ambulatory aa5 08:12 Acuity: MARYANA 4 aa5 Triage Assessment: 08:20 General: Appears in no apparent distress. uncomfortable, obese, Behavior is calm, bp cooperative, appropriate for age. Pain: Complains of pain in mouth. EENT: Reports pain in mouth. Neuro: No deficits noted. Cardiovascular: No deficits noted. Respiratory: No deficits noted. GI: No signs and/or symptoms were reported involving the gastrointestinal system. : No signs and/or symptoms were reported regarding the genitourinary system. Derm: No deficits noted. Musculoskeletal: No deficits noted. Historical: - Allergies: 08:22 avocado; aa5 08:22 olive extract; aa5 - PMHx: 08:22 Anxiety; Depression; epilepsy; ocd; Seizures; aa5 - PSHx: 08:22 section; tubal ligation; aa5 - Immunization history:: Adult Immunizations unknown. - Social history:: Smoking status: Patient reports the use of cigarette tobacco products. - Family history:: not pertinent. - Hospitalizations: : No recent hospitalization is reported. Screenin:20 [facility] ED Fall Risk Assessment (Adult) History of falling in the last 3 months, bp including since admission No falls in past 3 months (0 pts). Abuse screen: Denies threats or abuse. Denies injuries from another. Nutritional screening: No deficits noted. Tuberculosis screening: No symptoms or risk factors identified. Assessment: 08:20 General: SEE TRIAGE NOTE. bp Vital Signs: 08:12 BP 132 / 94; Pulse 80; Resp 18 S; Temp 98.8(O); Pulse Ox 100% on R/A; aa5 ED Course: 08:11 Patient arrived in ED. am2 08:12 Andree Grey FNP [facility] 7 08:12 Doug Hernandez MD is Attending Physician. 7 08:12 Arm band placed on Patient placed in an exam room, on a stretcher. aa5 08:13 Yang Cerda, RN is Primary Nurse. bp 08:20 Patient has correct armband on for positive identification. Bed in low position. Call bp light in reach. Side rails up X2. 08:27 Triage completed. aa5 09:09 No provider procedures requiring assistance completed. Patient did not have IV access bp during this emergency room visit. Administered Medications: 08:45 Drug: Ketorolac 30 mg Route: IM; Site: right gluteus; bp 09:06 Follow up: Response: No adverse reaction bp 08:45 Drug: Decadron (dexamethasone) 10 mg Route: IM; Site: right gluteus; bp 09:06 Follow up: Response: No adverse reaction bp Outcome: 08:26 Discharge ordered by . rn 09:09 Discharged to home ambulatory. bp 09:09 Discharge instructions given to patient, Instructed on discharge instructions, follow up and referral plans. medication usage, Demonstrated understanding of instructions, follow-up care, medications, Prescriptions given X 2. 09:10 Condition: stable bp 09:10 Patient left the ED. bp Signatures: Doug Hernandez MD MD rn Calderon, Audri RN RN [facility] Maribel Mccarthy [facility] Yang Cerda, RAFAL LYLES Andree Grey FNP [place] [id number]
[2022-12-28] MEDS ORDERED: dexAMETHasone 10 MG/ML VIAL ONE (08:49)
[2022-12-28] MEDS ORDERED: KETOROLAC 30 MG/ML INJ ONE (08:49)
[2022-12-28 09:15] VITALS: BP 132/94; TEMP 98.8; O2SAT 100
== END 2022-12-28 09:10 | disposition home or self-care (01) ==
LOC: ER 08:07
DX: K02.9 Dental caries, unspecified (principal); Z72.0 Tobacco use; Z91.018 Allergy to other foods
CPT/HCPCS: J1100

== ENCOUNTER 2023-01-27 13:59 | Emergency (ER) | payer BC ==
--- OUTSIDE RECORDS SUMMARY | 2023-01-27 14:04 | XMS REPORT | Continuity of Care Document ---
:1990 Author Organization [facility] t Address [address] [facility] [address] [place] [id number] Care Team Providers Name Role Phone Pedro Pollardmarlee Mclaughlin Attending Clinician Jarrod SWAN, Ellie Cole Attending Clinician [phone] ELLIE ZAMORA Attending Clinician Unavailable Payers Payer Name Policy Type Policy Number Effective Date Expiration Date [facility] BCBS 2 [id number] 2022 00:00:00 Problems Condition Condition Condition Status Onset Resolution Last Treating Co mments Source Name Details Category Date Date Treatment Clinician Date Depressive Problem Active 2022-12-13 M emoria disorder Depressive 11:52:05 l (disorder) disorder Herm marla (disorder) Active Problem 12/13/2022 [facility] 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 Dae n (disorder) (disorder) Active Problem 12/13/2022 [facility] Allergies, Adverse Reactions, Alerts Allergy Allergy Status Severity Reaction(s) Onset Inactive Treating Comm ents Source Name Type Date Date Clinician No Known No Known Active Memori a Medicati Medicati l on on Shade Allergie Allergie s s Social History Social Habit Start Date Stop Date Quantity Comments Source Social History 2022-12-10 2022-12-10 Eyal ma 21:07:42 21:07:42 Smoking Status Start Date Stop Date Source Tobacco smoking status 2022-12-10 20:38:40 Yonisor ania Laguerre Medications Ordered Filled Start Stop Current Ordering Indication Dosage Frequency Signature Comments Components Source Medication Medication Date Date Medication? Clinician (SIG) Name Name levETIRAcet Yes See Memori a am 500 mg 1-11 Instructio l oral tablet 23:59: ns, TAKE 3 Shade 00 TABLETS BY MOUTH EVERY MORNING AND 4 TABLETS EVERY EVENING, # 210 tab, 2 Refill(s), [id number], 167.64, cm, 08/07/21 11:05:00 CDT, Height, 93.182, kg, 08/07/21 11:05:00 CDT, Weight levETIRAcet Yes See Memori a am 500 mg 1-11 Instructio l oral tablet 23:59: ns, TAKE 3 Shade 00 TABLETS BY MOUTH EVERY MORNING AND 4 TABLETS EVERY EVENING, # 210 tab, 2 Refill(s), [id number], 167.64, cm, 08/07/21 11:05:00 CDT, Height, 93.182, kg, 08/07/21 11:05:00 CDT, Weight lamoTRIgine Yes = 1 tab, Me moria 200 mg oral 9-04 PO, BID, # l tablet 19:40: 60 tab, 5 Dae n 00 Refill(s), [facility][id number], 167.64, cm, 08/07/21 11:05:00 CDT, Height, 93.182, kg, 08/07/21 11:05:00 CDT, Weight lamoTRIgine Yes = 1 tab, Me moria 200 mg oral 9-04 PO, BID, # l tablet 19:40: 60 tab, 5 Dae n 00 Refill(s), [id number], 167.64, cm, 08/07/21 11:05:00 CDT, Height, 93.182, kg, 08/07/21 11:05:00 CDT, Weight escitalopra Yes See Memori a m 20 mg 6-14 Instructio l oral tablet 15:01: ns, 1/2 Her jo 00 tab PO Daily 30 day, # 30 tab, 6 Refill(s), [id number], 167.64, cm, 08/07/21 11:05:00 CDT, Height, 93.182, kg, 08/07/21 11:05:00 CDT, Weight escitalopra 2-0 Yes See Memori a m 20 mg 6-14 Instructio l oral tablet 15:01: ns, 1/2 Her jo 00 tab PO Daily 30 day, # 30 tab, 6 Refill(s), [id number], 167.64, cm, 08/07/21 11:05:00 CDT, Height, 93.182, kg, 08/07/21 11:05:00 CDT, Weight escitalopra 2-0 Yes See Memori a m 20 mg 6-14 Instructio l oral tablet 15:01: ns, 1/2 Her jo 00 tab PO Daily 30 day, # 30 tab, 6 Refill(s), [id number], 167.64, cm, 08/07/21 11:05:00 CDT, Height, 93.182, kg, 08/07/21 11:05:00 CDT, Weight escitalopra 2020-0 Yes See Memori a m 20 mg 9-10 Instructio l oral tablet 16:45: ns, 1/2 Her jo 00 tab PO Daily 30 day, # 30 tab, 6 Refill(s), [id number], 167.64, cm, 08/07/21 11:05:00 CDT, Height, 93.182, kg, 08/07/21 11:05:00 CDT, Weight escitalopra 2020-0 Yes See Memori a m 20 mg 9-10 Instructio l oral tablet 16:45: ns, 1/2 Her jo 00 tab PO Daily 30 day, # 30 tab, 6 Refill(s), [id number], 167.64, cm, 08/07/21 11:05:00 CDT, Height, 93.182, kg, 08/07/21 11:05:00 CDT, Weight escitalopra 1-0 Yes See Memori a m 20 mg 9-10 Instructio l oral tablet 16:45: ns, 1/2 Her jo 00 tab PO Daily 30 day, # 30 tab, 6 Refill(s), [facility]: [facility] #[id number], 167.64, cm, 08/07/21 11:05:00 CDT, Height, 93.182, kg, 08/07/21 11:05:00 CDT, Weight escitalopra 2019- Yes = 1 tab, Me moria m 20 mg 2-11 PO, Daily, l oral tablet 20:30: # 30 tab, H ermann 00 6 Refill(s), Pharmacy: [facility] STORE #[id number], 165.1, cm, 11/07/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, Height, 89.545, kg, 11/07/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, Weight lamotrigine 2019- Yes = 1 tab, Me moria 200 MG Oral 2-11 PO, BID, # l Tablet 20:30: 60 tab, 5 Dae n 00 Refill(s), Pharmacy: [facility] [employer] [facility] #[id number], 165.1, cm, 11/07/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, Height, 89.545, kg, 11/07/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, Weight escitalopra 2019- Yes = 1 tab, Me moria m 20 mg 2-11 PO, Daily, l oral tablet 20:30: # 30 tab, H ermann 00 6 Refill(s), Pharmacy: [facility] STORE #[id number], 165.1, cm, 11/07/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, Height, 89.545, kg, 11/07/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, Weight lamotrigine 2019- Yes = 1 tab, Me moria 200 MG Oral 2-11 PO, BID, # l Tablet 20:30: 60 tab, 5 Dae n 00 Refill(s), Pharmacy: [facility] STORE #[id number], 165.1, cm, 11/07/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, Height, 89.545, kg, 11/07/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, Weight escitalopra 2019- Yes = 1 tab, Me moria m 20 mg 2-11 PO, Daily, l oral tablet 20:30: # 30 tab, H ermann 00 6 Refill(s), Pharmacy: [facility] STORE #[id number], 165.1, cm, 11/07/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, Height, 89.545, kg, 11/07/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, Weight lamotrigine 2019- Yes = 1 tab, Me moria 200 MG Oral 2-11 PO, BID, # l Tablet 20:30: 60 tab, 5 Dae n 00 Refill(s), Pharmacy: [facility] [facility] #[id number], 165.1, cm, 11/07/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, Height, 89.545, kg, 11/07/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, Weight Levetiracet 2019-11 Yes See Memori a am 500 MG 1-12 Instructio l Oral Tablet 22:31: ns, TAKE 3 Garrett 00 TABLETS BY MOUTH EVERY MORNING AND 4 TABLETS BY MOUTH EVERY EVENING, # 210 tab, 1 Refill(s), [facility] #[id number], 170.18, cm, 09/25/19 13:46:00 CDT, Height, 89.545, kg, 09/25/19 13:46:00 CDT, Weight Levetiracet 2019-11 Yes See Memori a am 500 MG 1-12 Instructio l Oral Tablet 22:31: ns, TAKE 3 Garrett 00 TABLETS BY MOUTH EVERY MORNING AND 4 TABLETS BY MOUTH EVERY EVENING, # 210 tab, 1 Refill(s), [facility][id number], 170.18, cm, 09/25/19 13:46:00 CDT, Height, 89.545, kg, 09/25/19 13:46:00 CDT, Weight Levetiracet 2019-11 Yes See Memori a am 500 MG 1-12 Instructio l Oral Tablet 22:31: ns, TAKE 3 Shade 00 TABLETS BY MOUTH EVERY MORNING AND 4 TABLETS BY MOUTH EVERY EVENING, # 210 tab, 1 Refill(s), [facility][id number], 170.18, cm, 09/25/19 13:46:00 CDT, Height, 89.545, kg, 09/25/19 13:46:00 CDT, Weight Levetiracet 2018-11 Yes See Memori a am 500 MG 0-29 Instructio l Oral Tablet 19:17: ns, TAKE 3 Garrett 07 TABLETS BY MOUTH EVERY MORNING AND 4 TABLETS EVERY EVENING, # 210 tab, 5 Refill(s), Pharmacy: [facility] [facility] #[id number] Levetiracet 2018-11 Yes See Memori a am 500 MG 0-29 Instructio l Oral Tablet 19:17: ns, TAKE 3 Shade 07 TABLETS BY MOUTH EVERY MORNING AND 4 TABLETS EVERY EVENING, # 210 tab, 5 Refill(s), Pharmacy: [facility] [employer] [facility] #[id number] Levetiracet 2018-11 Yes See Memori a am 500 MG 0-29 Instructio l Oral Tablet 19:17: ns, TAKE 3 Garrett 07 TABLETS BY MOUTH EVERY MORNING AND 4 TABLETS EVERY EVENING, # 210 tab, 5 Refill(s), Pharmacy: [facility] [employer] [facility] #[id number] lamotrigine 2018-11 Yes = 1 tab, Me moria 200 MG Oral 0-29 PO, BID, # l Tablet 19:17: 60 tab, 5 Dae n 03 Refill(s), Pharmacy: [facility] [facility] #[id number] lamotrigine 2018-11 Yes = 1 tab, Me moria 200 MG Oral 0-29 PO, BID, # l Tablet 19:17: 60 tab, 5 Dae n 03 Refill(s), Pharmacy: [facility] [employer] [facility] #[id number] lamotrigine 2018-11 Yes = 1 tab, Me moria 200 MG Oral 0-29 PO, BID, # l Tablet 19:17: 60 tab, 5 Dae n 03 Refill(s), Pharmacy: [facility] ST[facility] #[id number] Escitalopra 2018-11 Yes 20 mg = 1 M emoria m 20 MG 0-29 tab, PO, l Oral Tablet 19:17: Daily, # Jason rmann [Lexapro] 00 30 tab, 5 Refill(s), Pharmacy: [facility] ST[facility] #[id number] Escitalopra 2018-11 Yes 20 mg = 1 M emoria m 20 MG 0-29 tab, PO, l Oral Tablet 19:17: Daily, # He rmann [Lexapro] 00 30 tab, 5 Refill(s), Pharmacy: [facility] [employer] [facility] #[id number] Escitalopra 2018-11 Yes 20 mg = 1 M emoria m 20 MG 0-29 tab, PO, l Oral Tablet 19:17: Daily, # He rmann [Lexapro] 00 30 tab, 5 Refill(s), Pharmacy: [facility] [facility] Levetiracet Yes See Memori a am 500 MG 1-23 Instructio l Oral Tablet 15:09: ns, TAKE 3 Shade 57 TABLETS BY MOUTH EVERY MORNING AND 4 TABLETS BY MOUTH EVERY EVENING, # 210 tab, 6 Refill(s), Pharmacy: [facility] [place] [address] Levetiracet Yes See Memori a am 500 MG 1-23 Instructio l Oral Tablet 15:09: ns, TAKE 3 Shade 57 TABLETS BY MOUTH EVERY MORNING AND 4 TABLETS BY MOUTH EVERY EVENING, # 210 tab, 6 Refill(s), Pharmacy: [facility] Levetiracet Yes See Memori a am 500 MG 1-23 Instructio l Oral Tablet 15:09: ns, TAKE 3 Shade 57 TABLETS BY MOUTH EVERY MORNING AND 4 TABLETS BY MOUTH EVERY EVENING, # 210 tab, 6 Refill(s), Pharmacy: [facility] [place] [address] lamotrigine Yes See Memori a 200 MG Oral 1-23 Instructio l Tablet 15:09: ns, TAKE 1 Amee nn 54 TABLET BY MOUTH TWICE DAILY, # 60 tab, 7 Refill(s), Pharmacy: [facility] [place] [address] lamotrigine Yes See Memori a 200 MG Oral 1-23 Instructio l Tablet 15:09: ns, TAKE 1 Amee nn 54 TABLET BY MOUTH TWICE DAILY, # 60 tab, 7 Refill(s), [facility] lamotrigine Yes See Memori a 200 MG Oral 1-23 Instructio l Tablet 15:09: ns, TAKE 1 Amee nn 54 TABLET BY MOUTH TWICE DAILY, # 60 tab, 7 Refill(s), Pharmacy: [facility] Levetiracet 2017-11 No See Memori a am 500 MG 2-29 Instructio l Oral Tablet 00:39: ns, # 210 H ermann 37 tab, TAKE 3 TABLETS BY MOUTH EVERY MORNING AND 4 TABLETS BY MOUTH EVERY EVENING, Pharmacy: [facility] Levetiracet 2017-11 No See Memori a am 500 MG 2-29 Instructio l Oral Tablet 00:39: ns, # 210 H ermann 37 tab, TAKE 3 TABLETS BY MOUTH EVERY MORNING AND 4 TABLETS BY MOUTH EVERY EVENING, Pharmacy: [facility] Levetiracet 2017-11 No See Memori a am 500 MG 2-29 Instructio l Oral Tablet 00:39: ns, # 210 H ermann 37 tab, TAKE 3 TABLETS BY MOUTH EVERY MORNING AND 4 TABLETS BY MOUTH EVERY EVENING, Pharmacy: [facility] Levetiracet 2017-11 No See Memori a am 500 MG 1-01 Instructio l Oral Tablet 23:43: ns, # 210 H ermann 51 tab, Refill(s) 1, TAKE 3 TABLETS BY MOUTH EVERY MORNING AND 4 TABLETS BY MOUTH EVERY EVENING, Pharmacy: [facility] lamotrigine 2017-11 No See Memori a 200 MG Oral 1-01 Instructio l Tablet 23:43: ns, # 214 Dae n 51 tab, Refill(s) 1, TAKE 1 TABLET BY MOUTH TWICE DAILY, Pharmacy: [facility] Levetiracet 2017-11 No See Memori a am 500 MG 1-01 Instructio l Oral Tablet 23:43: ns, # 210 H ermann 51 tab, Refill(s) 1, TAKE 3 TABLETS BY MOUTH EVERY MORNING AND 4 TABLETS BY MOUTH EVERY EVENING, Pharmacy: [facility] lamotrigine 2017-11 No See Memori a 200 MG Oral 1-01 Instructio l Tablet 23:43: ns, # 214 Dae n 51 tab, Refill(s) 1, TAKE 1 TABLET BY MOUTH TWICE DAILY, Pharmacy: [facility] Levetiracet 2017-11 No See Memori a am 500 MG 1-01 Instructio l Oral Tablet 23:43: ns, # 210 H ermann 51 tab, Refill(s) 1, TAKE 3 TABLETS BY MOUTH EVERY MORNING AND 4 TABLETS BY MOUTH EVERY EVENING, Pharmacy: [facility] lamotrigine 2017-11 No See Memori a 200 MG Oral 11-28 Instructio l Tablet 23:43: ns, # 214 Dae n 51 tab, Refill(s) 1, TAKE 1 TABLET BY MOUTH TWICE DAILY, Pharmacy: [id number] Vital Signs Vital Name Observation Time Observation Value Comments Source Systolic (mm Hg) 2022-12-10 20:37:00 Yamil rial Shade Diastolic (mm Hg) 2022-12-10 20:37:00 Mem orial [place] Heart Rate 2022-12-10 20:37:00 [facility] [place] Height 2022-12-10 20:37:00 5 [ft_i] [facility] [place] Weight 2022-12-10 20:37:00 [facility] [place] BMI Calculated 2022-12-10 20:37:00 Memori al [place] Systolic (mm Hg) 2021-08-07 15:53:00 Yamil rial Garrett Diastolic (mm Hg) 2021-08-07 15:53:00 Mem orial Garrett Heart Rate 2021-08-07 15:53:00 [facility] Garrett Respitory Rate 2021-08-07 15:53:00 Memori al Garrett Height 2021-08-07 15:53:00 167.64 cm [facility] [place] Weight 2021-08-07 15:53:00 [facility] BMI Calculated 2021-08-07 15:53:00 Memori al Garrett Systolic (mm Hg) 2020-11-07 20:11:00 Yamil rial [place]ade Diastolic (mm Hg) 2020-11-07 20:11:00 Mem orial Garrett Heart Rate 2020-11-07 20:11:00 [facility] [place] Respitory Rate 2020-11-07 20:11:00 Memori al Garrett Height 2020-11-07 20:11:00 165.1 cm [facility] [place] Weight 2020-11-07 20:11:00 [facility] Sh[place] BMI Calculated 2020-11-07 20:11:00 Memori al [place] Systolic (mm Hg) 2019-09-25 18:39:00 Yamil rial Garrett Diastolic (mm Hg) 2019-09-25 18:39:00 Mem orial [place] Heart Rate 2019-09-25 18:39:00 [facility] Garrett Respitory Rate 2019-09-25 18:39:00 Memori al Garrett Height 2019-09-25 18:39:00 170.18 cm [facility] [place] Weight 2019-09-25 18:39:00 [facility] [place] BMI Calculated 2019-09-25 18:39:00 Memori al [place] Heart Rate 2018-12-20 14:55:00 [facility] [place] Systolic (mm Hg) 2018-12-20 14:55:00 Yamil coyle Garrett Diastolic (mm Hg) 2018-12-20 14:55:00 Mem orial Garrett Weight 2018-12-20 14:55:00 [facility] [place] BMI Calculated 2018-12-20 14:55:00 Memori al Garrett Height 2018-12-20 14:55:00 165.1 cm [facility] Procedures This patient has no known procedures. Encounters Start End Encounter Admission Attending Care Care Encounter Source Date/Time Date/Time Type Type Clinicians Facility Department ID 2023-12-13 2023-12-13 Outpatient MHIE MHIE [id number] Memoria 09:00:00 09:00:00 13 samson ContehShade 2023-12-13 2023-12-13 Outpatient MHIE MHIE [id number] Memoria 09:00:00 09:00:00 13 samson ContehGarrett 2022-12-10 2022-12-11 Outpatient MHIE MNA [id number] Memoria 20:30:00 05:59:59 Neurology 12 samson Kee Shade 2022-12-10 2022-12-11 Outpatient MHIE MNA [id number] Memoria 20:30:00 05:59:59 Neurology 12 samson Laguerre 2022-12-10 2022-12-10 Outpatient BILLY Pollard MISCHER [id number] 14:30:00 23:59:59 Antwan 12 Arnoldo 2022-12-10 2022-12-10 Outpatient MHIE MHIE [id number] Memoria 14:30:00 14:30:00 12 samson ContehGarrett 2022-08-13 2022-08-13 Ambulatory nullFlavo MNA [id number] Memoria 14:15:00 14:15:00 Pre-Reg r Neurology 11 samson Contehann 2022-08-13 2022-08-13 Ambulatory nullFlavo MNA [id number] Memoria 14:15:00 14:15:00 Pre-Reg r Neurology 11 l Chilango Laguerre 2022-08-13 2022-08-13 Outpatient MHIE MHIE [id number] Memoria 09:15:00 09:15:00 11 l Shade 2022-08-13 2022-08-13 Outpatient NICOLE PollardOKSCHER MISCHER [id number] 09:15:00 09:15:00 Antwan 11 Arnoldo 2022-05-06 2022-05-06 [place] [id number] Becky 10:30:00 11:00:00 Visit Ellie Patrick [id number] roque Frenchzohra [id number] 2022-05-06 2022-05-06 Outpatient BECKY ZAMORA [id number] Becky 00:00:00 00:00:00 ELLIE ugarte 2021-08-07 2021-08-08 Outpatient nullFlavo MNA [id number] Memoria 16:00:00 04:59:59 r Neurology 10 l Chilango Laguerre 2021-08-07 2021-08-08 Outpatient nullFlavo MNA [id number] Memoria 16:00:00 04:59:59 r Neurology 10 l Chilango Laguerre 2021-08-07 2021-08-07 Outpatient NICOLE PollardOKSCHER MISCHER [id number] 11:00:00 23:59:59 Antwan Russell Mclaughlin 2021-08-07 2021-08-07 Outpatient MHIE MHIE [id number] Memoria 11:00:00 11:00:00 10 l Shade 2020-11-07 2020-11-08 Outpatient nullFlavo MNA [id number] Memoria 19:45:00 05:59:59 r Neurology 09 l Chilango Laguerre 2020-11-07 2020-11-08 Outpatient nullFlavo MNA [id number] Memoria 19:45:00 05:59:59 r Neurology 09 l Chilango Contehann 2020-11-07 2020-11-07 Outpatient NICOLE PollardOKSCHER MHMISCHER [id number] 13:45:00 23:59:59 Antwan 09 Arnoldo 2020-11-07 2020-11-07 Outpatient MHIE IE [id number] Memoria 13:45:00 13:45:00 09 l Shade 2020-09-09 2020-09-09 Ambulatory nullFlavo MNA [id number] Memoria 14:15:00 14:15:00 Pre-Reg r Neurology 08 l Chilango Laguerre 2020-09-09 2020-09-09 Ambulatory nullFlavo MNA [id number] Memoria 14:15:00 14:15:00 Pre-Reg r Neurology 08 l Chilango Shade 2020-09-09 2020-09-09 Outpatient MHIE MHIE [id number] Memoria 09:15:00 09:15:00 08 l Garrett 2020-09-09 2020-09-09 [id number] 09:15:00 09:15:00 Antwan 08 Arnoldo 2020-06-17 2020-06-17 Ambulatory nullFlavo MNA [id number] Memoria 19:00:00 19:00:00 Pre-Reg r Neurology 06 l Chilango Garrett 2020-06-17 2020-06-17 Ambulatory nullFlavo MNA [id number] Memoria 19:00:00 19:00:00 Pre-Reg r Neurology 07 l Chilango Garrett 2020-06-17 2020-06-17 Ambulatory nullFlavo MNA [id number] Memoria 19:00:00 19:00:00 Pre-Reg r Neurology 06 l Chilango Garrett 2020-06-17 2020-06-17 Ambulatory nullFlavo MNA [id number] Memoria 19:00:00 19:00:00 Pre-Reg r Neurology 07 l Chilango Garrett 2020-06-17 2020-06-17 Outpatient MHIE IE [id number] Memoria 14:00:00 14:00:00 07 samson Garrett 2020-06-17 2020-06-17 Outpatient MHIE NICOLEIE [id number] Memoria 14:00:00 14:00:00 06 samson Garrett 2020-06-17 2020-06-17 Outpatient BILLY Pollard MISCHER [id number] 14:00:00 14:00:00 Antwan Luis Felipe Arnoldo 2020-06-17 2020-06-17 Outpatient NICOLE PollardOKCRYSTAL MISCHER [id number] 14:00:00 14:00:00 Antwan 06 Arnoldo 2019-12-28 2019-12-30 Outside nullFlavo MNA [id number] Memoria 20:20:23 05:59:59 Medical r Neurology 01 l Blaise Laguerre 2019-12-28 2019-12-30 Outside nullFlavo MNA [id number] Memoria 20:20:23 05:59:59 Medical r Neurology 01 l Blaise Laguerre 2019-12-28 2019-12-29 Outpatient MHMISCHER MISCHER [id number] 14:20:23 23:59:59 2019-09-25 2019-09-26 Outpatient nullFlavo MNA [id number] Memoria 19:15:00 04:59:59 r Neurology 05 samson Laguerre 2019-09-25 2019-09-26 Outpatient nullFlavo MNA [id number] Memoria 19:15:00 04:59:59 r Neurology 05 samson Laguerre 2019-09-25 2019-09-25 Outpatient [facility] [id number] 14:15:00 23:59:59 Antwan Lewis Mclaughlin 2019-09-25 2019-09-25 Outpatient MHIE MHIE [id number] Memoria 14:15:00 14:15:00 05 samson Laguerre 2019-08-17 2019-08-17 Ambulatory nullFlavo MNA [id number] Memoria 16:45:00 16:45:00 Pre-Reg r Neurology 04 samson Laguerre 2019-08-17 2019-08-17 Ambulatory nullFlavo MNA [id number] Memoria 16:45:00 16:45:00 Pre-Reg r Neurology 04 samson Contehann 2019-08-17 2019-08-17 Outpatient MHIE MHIE [id number] Memoria 11:45:00 11:45:00 Augusta Laguerre 2019-08-17 2019-08-17 [facility] [id number] 11:45:00 11:45:00 Antwan Augusta Mclaughlin 2019-06-19 2019-06-19 Ambulatory nullFlavo MNA [id number] Memoria 18:00:00 18:00:00 Pre-Reg r Neurology 03 samson Laguerre 2019-06-19 2019-06-19 Ambulatory nullFlavo MNA [id number] Memoria 18:00:00 18:00:00 Pre-Reg r Neurology 03 samson Kee Shade 2019-06-19 2019-06-19 Outpatient MHIE MHIE [id number] Memoria 13:00:00 13:00:00 03 samson [place] 2019-06-19 2019-06-19 Outpatient NICOLE [facility]SCHER [facility] [id number] 13:00:00 13:00:00 Antwan 03 Arnoldo 2018-12-20 2018-12-21 Outpatient nullFlavo MNA [id number] Memoria 14:45:00 05:59:59 r Neurology 02 samson Kee [place] 2018-12-20 2018-12-21 Outpatient nullFlavo MNA [id number] Memoria 14:45:00 05:59:59 r Neurology 02 samson Kee [place] 2018-12-20 2018-12-20 [facility] [id number] 08:45:00 23:59:59 Antwan 02 Arnoldo 2018-12-20 2018-12-20 Outpatient MHIE MHIE [id number] Memoria 08:45:00 08:45:00 02 samson Garrett 2018-12-14 2018-12-14 Ambulatory nullFlavo MNA [id number] Memoria 19:00:00 19:00:00 Pre-Reg r Neurology 01 samson Kee Shade 2018-12-14 2018-12-14 Ambulatory nullFlavo MNA [id number] Memoria 19:00:00 19:00:00 Pre-Reg r Neurology 01 samson Radford [place] 2018-12-14 2018-12-14 Outpatient MHIE MHIE [id number] Memoria 13:00:00 13:00:00 01 samson Shade 2018-12-14 2018-12-14 [facility] [id number] 13:00:00 13:00:00 Antwan Karen Arnoldo 2018-06-08 2018-06-08 Outpatient MHIE MHIE [id number] Memoria 13:45:00 13:45:00 00 samson Shade 2018-06-08 2018-06-08 Outpatient MHIE MHIE [id number] Memoria 13:45:00 13:45:00 00 [facility] Results Test Description Test Time Test Comments Results Result Comments Source CHEM PANEL 2018-12-15 15:06:00 Test Item Value Reference Range Interpretation Comme nts BUN (test code = BUN) 06-21 [id number] 15:06:00 Test Item Value Reference Range Interpretation Comments Glucose Lvl (test code = Glucose Lvl) 57 65-99 [facility] [id number] 15:06:00 Test Item Value Reference Range Interpretation Comments ALANINE AMINOTRANSFERASE (test code = 12 6-29 ALANINE AMINOTRANSFERASE) [facility] [id number] 15:06:00 Test Item Value Reference Range Interpretation Comments BUN (test code = BUN) 06-21 [facility] [id number] 15:06:00 Test Item Value Reference Range Interpretation Comments Glucose Lvl (test code = Glucose Lvl) 57 65- [facility] [id number] 15:06:00 Test Item Value Reference Range Interpretation Comments ALANINE AMINOTRANSFERASE (test code = 12 6-29 ALANINE AMINOTRANSFERASE) [facility] [id number] 15:06:00 Test Item Value Reference Range Interpretation Comments ASPARTATE TRANSAMINASE (test code = 11 10-30 ASPARTATE TRANSAMINASE) [facility] [id number] 15:06:00 Test Item Value Reference Range Interpretation Comments CO2 (test code = CO2) 29 20-32 [facility] [id number] 15:06:00 Test Item Value Reference Range Interpretation Comments Total Protein (test code = Total 7.0 6.1-8.1 Protein) [facility] [id number] 15:06:00 Test Item Value Reference Range Interpretation Comments Albumin Lvl (test code = Albumin Lvl) 4.3 3.6-5.1 [facility] [employer] [id number] 15:06:00 Test Item Value Reference Range Interpretation Comments Creatinine Lvl (test code = Creatinine 0.78 0.50-1.10 Lvl) [facility]ComptTIAAFF[facility] PARTNERSDJPGE2624-72-97 15:06:00 Test Item Value Reference Range Interpretation Comments eGFR NON-AFR. [place] (test code = 104 eGFR NON-AFR. [place]) [facility] [employer] [id number] 15:06:00 Test Item Value Reference Range Interpretation Comments eGFR (test code = eGFR 121 ) [facility]2019-01-18 15:06:00 Test Item Value Reference Range Interpretation Comments ASPARTATE TRANSAMINASE (test code = 11 10-30 ASPARTATE TRANSAMINASE) [facility]2019-01-18 15:06:00 Test Item Value Reference Range Interpretation Comments Globulin (test code = Globulin) 2.7 1.9-3.7 [facility]2019-01-18 15:06:00 Test Item Value Reference Range Interpretation Comments A/G Ratio (test code = A/G Ratio) 1.6 1.0-2.5 [facility]2019-01-18 15:06:00 Test Item Value Reference Range Interpretation Comments Alk Phos (test code = Alk Phos) 73 33-115 [facility]2019-01-18 15:06:00 Test Item Value Reference Range Interpretation Comments Bili Total (test code = Bili Total) 0.3 0.2-1.2 [facility]2019-01-18 15:06:00 Test Item Value Reference Range Interpretation Comments Sodium Lvl (test code = Sodium Lvl) 140 135-146 [facility]2019-01-18 15:06:00 Test Item Value Reference Range Interpretation Comments B/C Ratio (test code = B/C NOT APPLICABLE 6-22 Ratio) [facility]2019-01-18 15:06:00 Test Item Value Reference Range Interpretation Comments Potassium Lvl (test code = Potassium 4.0 3.5-5.3 Lvl) [facility]2019-01-18 15:06:00 Test Item Value Reference Range Interpretation Comments Chloride Lvl (test code = Chloride Lvl) 103 98-110 [facility]2019-01-18 15:06:00 Test Item Value Reference Range Interpretation Comments Calcium Lvl (test code = Calcium Lvl) 9.4 8.6-10.[address] [facility] HospitalHtpyapzSNDAXWZKFR4522-08-86 15:06:00 Test Item Value Reference Range Interpretation Comments Eosinophils (test code = Eosinophils) 3.5 [facility]2019-01-18 15:06:00 Test Item Value Reference Range Interpretation Comments CO2 (test code = CO2) 29 20-[address] [facility] HospitalQwilvbrQYSDSNJYRJ8533-47-43 15:06:00 Test Item Value Reference Range Interpretation Comments Basophils (test code = Basophils) 0.7 [facility]oltZMFUUWDXGM0423-50-06 15:06:00 Test Item Value Reference Range Interpretation Comments Monocytes (test code = Monocytes) 6.[address] [facility] HospitalUwjlzrnITTOEGXSQA2937-03-71 15:06:00 Test Item Value Reference Range Interpretation Comments MCHC (test code = MCHC) 33.3 32.0-36.[address] [facility] HospitalNjtnbbfXRYEFZTFLK1114-10-12 15:06:00 Test Item Value Reference Range Interpretation Comments MCH (test code = MCH) 27.3 pg 27.0-33.[address] [facility] HospitalTshclzkYEDCYDAEIX1991 15:06:00 Test Item Value Reference Range Interpretation Comments RDW (test code = RDW) 14.4 11.0-15.[address] [facility] HospitalJptkexfXSIZYSWDBJ9356-27-29 15:06:00 Test Item Value Reference Range Interpretation Comments Platelet (test code = Platelet) 234 140-[address] [facility] HospitalVlruffbWXMAITJYDD0366-63-29 15:06:00 Test Item Value Reference Range Interpretation Comments Neutrophils # (test code = Neutrophils 7137 7904-9124 #) [facility] HospitalSwzwrigVPDWXDWPGO2005-10-96 15:06:00 Test Item Value Reference Range Interpretation Comments Lymphocytes # (test code = Lymphocytes 2775 850-3900 #) [facility] HospitalOnqekrhLDNCOGUKCJ3984-28-61 15:06:00 Test Item Value Reference Range Interpretation Comments Monocytes # (test code = Monocytes #) 722 200-[address] [facility] HospitalFnbxpdmWHJWAKXXIT8418-03-91 15:06:00 Test Item Value Reference Range Interpretation Comments MPV (test code = MPV) 11.5 7.5-12.5 [facility]2019-01-18 15:06:00 Test Item Value Reference Range Interpretation Comments Total Protein (test code = Total 7.0 6.1-8.1 Protein) [facility] HospitalHiiqlxkDBPWXZJDBU7102-40-80 15:06:00 Test Item Value Reference Range Interpretation Comments Eosinophils # (test code = Eosinophils 389 15-500 #) [facility] HospitalUicvuwiMBRDNLXAYA8775-83-60 15:06:00 Test Item Value Reference Range Interpretation Comments Basophils # (test code 78 See_Comment [Aut omated message] The = Basophils #) system which generated this result tra nsmitted reference range : <=200. The reference r may was not used to int erpret this result as normal/abnormal . [facility] HospitalYipinuyXKXABWAAAE5641-21-14 15:06:00 Test Item Value Reference Range Interpretation Comments WBC X 10x3 (test code = WBC X 10x3) 11.1 3.8-10.[address] [facility] HospitalYqbhsrtBWZBRENYWB9118-41-39 15:06:00 Test Item Value Reference Range Interpretation Comments Lymphocytes (test code = Lymphocytes) 25.[address] [facility] HospitalCllrtpgMBRQSVETYU2232-13-69 15:06:00 Test Item Value Reference Range Interpretation Comments Segs (test code = Segs) 64.[address] [facility] HospitalOzuixmsTVCXLDTCJA0466-12-61 15:06:00 Test Item Value Reference Range Interpretation Comments Hgb (test code = Hgb) 14.1 11.7-15.[address] [facility] HospitalUpcgyylCFORHDTVDS5080-67-07 15:06:00 Test Item Value Reference Range Interpretation Comments RBC X 10x6 (test code = RBC X 10x6) 5.16 3.80-5.[address] [facility] HospitalBodvhiaEKYYWVOCRS3944-19-32 15:06:00 Test Item Value Reference Range Interpretation Comments MCV (test code = MCV) 82.2 80.0-100.[address] [facility] HospitalRznccwiJOQAXCWCZK6807-41-09 15:06:00 Test Item Value Reference Range Interpretation Comments Hct (test code = Hct) 42.4 35.0-45.0 [facility]ballGsmqhufVMIMTJACYP6640-30-30 15:06:00 Test Item Value Reference Range Interpretation Comments Lamotrigine Lvl (test code = 10.2 4.0-18.0 Lamotrigine Lvl) [facility]2019-01-18 15:06:00 Test Item Value Reference Range Interpretation Comments Albumin Lvl (test code = Albumin Lvl) 4.3 3.6-5.1 [facility]2019-01-18 15:06:00 Test Item Value Reference Range Interpretation Comments Creatinine Lvl (test code = Creatinine 0.78 0.50-1.10 Lvl) [facility]2019-01-18 15:06:00 Test Item Value Reference Range Interpretation Comments eGFR NON-AFR. [place] (test code = 104 eGFR NON-AFR. [place]) [facility]2019-01-18 15:06:00 Test Item Value Reference Range Interpretation Comments eGFR (test code = eGFR 121 ) [facility]2019-01-18 15:06:00 Test Item Value Reference Range Interpretation Comments Globulin (test code = Globulin) 2.7 1.9-3.7 [facility]2019-01-18 15:06:00 Test Item Value Reference Range Interpretation Comments A/G Ratio (test code = A/G Ratio) 1.6 1.0-2.5 [facility]2019-01-18 15:06:00 Test Item Value Reference Range Interpretation Comments Alk Phos (test code = Alk Phos) 73 33-115 [facility]2019-01-18 15:06:00 Test Item Value Reference Range Interpretation Comments Bili Total (test code = Bili Total) 0.3 0.2-1.2 [facility]2019-01-18 15:06:00 Test Item Value Reference Range Interpretation Comments Sodium Lvl (test code = Sodium Lvl) 140 135-146 [facility]2019-01-18 15:06:00 Test Item Value Reference Range Interpretation Comments B/C Ratio (test code = B/C NOT APPLICABLE 6-22 Ratio) [facility]2019-01-18 15:06:00 Test Item Value Reference Range Interpretation Comments Potassium Lvl (test code = Potassium 4.0 3.5-5.3 Lvl) [facility]2019-01-18 15:06:00 Test Item Value Reference Range Interpretation Comments Chloride Lvl (test code = Chloride Lvl) 103 98-110 [facility]2019-01-18 15:06:00 Test Item Value Reference Range Interpretation Comments Calcium Lvl (test code = Calcium Lvl) 9.4 8.6-10.[address] [facility] HospitalGunrftxXOHWQTRPVW0319-13-56 15:06:00 Test Item Value Reference Range Interpretation Comments Eosinophils (test code = Eosinophils) 3.[address] [facility] HospitalOisddroGLIKPMSXYB1371-24-77 15:06:00 Test Item Value Reference Range Interpretation Comments Basophils (test code = Basophils) 0.[address] [facility] HospitalAcxvhinBYKVZPTWYJ9555-96-97 15:06:00 Test Item Value Reference Range Interpretation Comments Monocytes (test code = Monocytes) 6.[address] [facility] HospitalBzukrjqHYHFQLBZAG6241-72-86 15:06:00 Test Item Value Reference Range Interpretation Comments MCHC (test code = MCHC) 33.3 32.0-36.[address] [facility] HospitalOtgdtlcNUFSDXIQEO0211-07-04 15:06:00 Test Item Value Reference Range Interpretation Comments MCH (test code = MCH) 27.3 pg 27.0-33.[address] [facility] HospitalFoskewfABQIHRBAIR7492-58-23 15:06:00 Test Item Value Reference Range Interpretation Comments RDW (test code = RDW) 14.4 11.0-15.[address] [facility] HospitalRrjjguoGESIPTFMVC6855-97-03 15:06:00 Test Item Value Reference Range Interpretation Comments Platelet (test code = Platelet) 234 140-[address] [facility] HospitalVzkrcatEZHBFSBBBH7036-49-09 15:06:00 Test Item Value Reference Range Interpretation Comments Neutrophils # (test code = Neutrophils 7137 2039-5515 #) [facility] HospitalUbiblmoZTBTKZVKYA0827-48-85 15:06:00 Test Item Value Reference Range Interpretation Comments Lymphocytes # (test code = Lymphocytes 2775 850-3900 #) [facility] HospitalNvbigoxQIUOOMBQAV7913-31-47 15:06:00 Test Item Value Reference Range Interpretation Comments Monocytes # (test code = Monocytes #) 722 200-[address] [facility] HospitalBclddniMNFDBOTZZL9235-76-20 15:06:00 Test Item Value Reference Range Interpretation Comments MPV (test code = MPV) 11.5 7.5-12.[address] [facility] HospitalLqrsprmBNMVXXTTYA8235-43-33 15:06:00 Test Item Value Reference Range Interpretation Comments Eosinophils # (test code = Eosinophils 389 15-500 #) [facility] HospitalTaaskclZDDWDZZEPZ5904-24-84 15:06:00 Test Item Value Reference Range Interpretation Comments Basophils # (test code 78 See_Comment [Aut omated message] The = Basophils #) system which generated this result tra nsmitted reference range : <=200. The reference r may was not used to int erpret this result as normal/abnormal . [facility] HospitalNotslgeSHEUQSPVPA6482-43-37 15:06:00 Test Item Value Reference Range Interpretation Comments WBC X 10x3 (test code = WBC X 10x3) 11.1 3.8-10.[address] [facility] HospitalHanldhuRVMYEUEGAX9034-38-09 15:06:00 Test Item Value Reference Range Interpretation Comments Lymphocytes (test code = Lymphocytes) 25.[address] [facility] HospitalQxhbmuaBJRLXUJVPL1066-76-14 15:06:00 Test Item Value Reference Range Interpretation Comments Segs (test code = Segs) 64.[address] [facility] HospitalErxeocjOGVRRXABEI0072-90-66 15:06:00 Test Item Value Reference Range Interpretation Comments Hgb (test code = Hgb) 14.1 11.7-15.[address] [facility] HospitalCucedowGJRWDURLIL8371-56-88 15:06:00 Test Item Value Reference Range Interpretation Comments RBC X 10x6 (test code = RBC X 10x6) 5.16 3.80-5.[address] [facility] HospitalCaeoibvCRLEPWAYWK3022-64-62 15:06:00 Test Item Value Reference Range Interpretation Comments MCV (test code = MCV) 82.2 80.0-100.[address] [facility] HospitalQsxhrwhFCFFDIOBXX9372-57-51 15:06:00 Test Item Value Reference Range Interpretation Comments Hct (test code = Hct) 42.4 35.0-45.0 [facility]ballTjlmytyYUECQCUQFO4169-08-03 15:06:00 Test Item Value Reference Range Interpretation Comments Lamotrigine Lvl (test code = 10.2 4.0-18.0 Lamotrigine Lvl) [facility]2019-01-18 15:06:00 Test Item Value Reference Range Interpretation Comments BUN (test code = BUN) 12 7-25 [facility]2019-01-18 15:06:00 Test Item Value Reference Range Interpretation Comments Glucose Lvl (test code = Glucose Lvl) 57 65-99 [facility]2019-01-18 15:06:00 Test Item Value Reference Range Interpretation Comments ALANINE AMINOTRANSFERASE (test code = 12 6-29 ALANINE AMINOTRANSFERASE) [facility]2019-01-18 15:06:00 Test Item Value Reference Range Interpretation Comments ASPARTATE TRANSAMINASE (test code = 11 10-30 ASPARTATE TRANSAMINASE) [facility]2019-01-18 15:06:00 Test Item Value Reference Range Interpretation Comments CO2 (test code = CO2) 29 20-32 [facility]2019-01-18 15:06:00 Test Item Value Reference Range Interpretation Comments Total Protein (test code = Total 7.0 6.1-8.1 Protein) [facility]2019-01-18 15:06:00 Test Item Value Reference Range Interpretation Comments Albumin Lvl (test code = Albumin Lvl) 4.3 3.6-5.1 [facility]2019-01-18 15:06:00 Test Item Value Reference Range Interpretation Comments Creatinine Lvl (test code = Creatinine 0.78 0.50-1.10 Lvl) [facility]2019-01-18 15:06:00 Test Item Value Reference Range Interpretation Comments eGFR NON-AFR. [place] (test code = 104 eGFR NON-AFR. [place]) [facility]2019-01-18 15:06:00 Test Item Value Reference Range Interpretation Comments eGFR (test code = eGFR 121 ) [facility]2019-01-18 15:06:00 Test Item Value Reference Range Interpretation Comments Globulin (test code = Globulin) 2.7 1.9-3.7 [facility]2019-01-18 15:06:00 Test Item Value Reference Range Interpretation Comments A/G Ratio (test code = A/G Ratio) 1.6 1.0-2.5 [facility]2019-01-18 15:06:00 Test Item Value Reference Range Interpretation Comments Alk Phos (test code = Alk Phos) 73 33-115 [facility]2019-01-18 15:06:00 Test Item Value Reference Range Interpretation Comments Bili Total (test code = Bili Total) 0.3 0.2-1.2 [facility]2019-01-18 15:06:00 Test Item Value Reference Range Interpretation Comments Sodium Lvl (test code = Sodium Lvl) 140 135-146 [facility]2019-01-18 15:06:00 Test Item Value Reference Range Interpretation Comments B/C Ratio (test code = B/C NOT APPLICABLE 6-22 Ratio) [facility]2019-01-18 15:06:00 Test Item Value Reference Range Interpretation Comments Potassium Lvl (test code = Potassium 4.0 3.5-5.3 Lvl) [facility]2019-01-18 15:06:00 Test Item Value Reference Range Interpretation Comments Chloride Lvl (test code = Chloride Lvl) 103 98-110 [facility]2019-01-18 15:06:00 Test Item Value Reference Range Interpretation Comments Calcium Lvl (test code = Calcium Lvl) 9.4 8.6-10.[address] [facility] HospitalZudmktlOKNAZADIIU2622-68-22 15:06:00 Test Item Value Reference Range Interpretation Comments Eosinophils (test code = Eosinophils) 3.[address] [facility] HospitalUuujaeaNSMMHONVTB1922-21-02 15:06:00 Test Item Value Reference Range Interpretation Comments Basophils (test code = Basophils) 0.[address] [facility] HospitalBojjzemHITWYIDZNQ9183-13-76 15:06:00 Test Item Value Reference Range Interpretation Comments Monocytes (test code = Monocytes) 6.[address] [facility] HospitalYxgckukNQFXCFULLF4218-31-23 15:06:00 Test Item Value Reference Range Interpretation Comments MCHC (test code = MCHC) 33.3 32.0-36.[address] [facility] HospitalHdkggvmIBAPDZYLPN0868-56-33 15:06:00 Test Item Value Reference Range Interpretation Comments MCH (test code = MCH) 27.3 pg 27.0-33.[address] [facility] HospitalVzgtukqAYFAMQUAHS9570-92-29 15:06:00 Test Item Value Reference Range Interpretation Comments RDW (test code = RDW) 14.4 11.0-15.[address] [facility] HospitalSkqssqtPFAKCDTYXI9323-75-59 15:06:00 Test Item Value Reference Range Interpretation Comments Platelet (test code = Platelet) 234 140-[address] [facility] HospitalNvvoioiUQHCLCXYWP6126-71-43 15:06:00 Test Item Value Reference Range Interpretation Comments Neutrophils # (test code = Neutrophils 7137 5325-5079 #) [facility] HospitalFaxnxllLTBAZLSWXY8878-81-39 15:06:00 Test Item Value Reference Range Interpretation Comments Lymphocytes # (test code = Lymphocytes 2775 850-3900 #) [facility] HospitalNvtpgviJKBSOSXXSZ9725-32-83 15:06:00 Test Item Value Reference Range Interpretation Comments Monocytes # (test code = Monocytes #) 722 200-[address] [facility] HospitalEdwxqebSDKTWIJFSR1171-38-11 15:06:00 Test Item Value Reference Range Interpretation Comments MPV (test code = MPV) 11.5 7.5-12.[address] [facility] HospitalFveyhxrBHPRZWPFCJ5098-20-49 15:06:00 Test Item Value Reference Range Interpretation Comments Eosinophils # (test code = Eosinophils 389 15-500 #) [facility] HospitalDwuqutgZVKRNQSEMH5470-84-79 15:06:00 Test Item Value Reference Range Interpretation Comments Basophils # (test code 78 See_Comment [Aut omated message] The = Basophils #) system which generated this result tra nsmitted reference range : <=200. The reference r may was not used to int erpret this result as normal/abnormal . [facility] HospitalWsdgvhzXQNROXQOIW2755-53-59 15:06:00 Test Item Value Reference Range Interpretation Comments WBC X 10x3 (test code = WBC X 10x3) 11.1 3.8-10.[address] [facility] HospitalKcvbotlKMSFWADGRL2269-50-20 15:06:00 Test Item Value Reference Range Interpretation Comments Lymphocytes (test code = Lymphocytes) 25.[address] [facility] HospitalDphqaghUYAATJGNKA8118-83-32 15:06:00 Test Item Value Reference Range Interpretation Comments Segs (test code = Segs) 64.[address] [facility] HospitalNvozhwpYESGQUUMSL6179-52-52 15:06:00 Test Item Value Reference Range Interpretation Comments Hgb (test code = Hgb) 14.1 11.7-15.[address] [facility] HospitalVfsxfdhAOGSBFQAQY3169-14-47 15:06:00 Test Item Value Reference Range Interpretation Comments RBC X 10x6 (test code = RBC X 10x6) 5.16 3.80-5.[address] [facility] HospitalJyiptluBUQBDHFVXV7306-22-84 15:06:00 Test Item Value Reference Range Interpretation Comments MCV (test code = MCV) 82.2 80.0-100.[address] [facility] HospitalAhyzqjoPEANRJKFZD1467-26-78 15:06:00 Test Item Value Reference Range Interpretation Comments Hct (test code = Hct) 42.4 35.0-45.0 [facility]ballDfibnbdDEDFXEQYSA1344-75-94 15:06:00 Test Item Value Reference Range Interpretation Comments Lamotrigine Lvl (test code = 10.2 4.0-18.0 Lamotrigine Lvl) [facility]
--- NOTE | 2023-01-27 14:18 | EDPHYS ---
Physician Documentation [facility] Name: Cora Marquez Age: 32 yrs Sex: Female : 1990 Arrival Date: 01/27/2023 Time: 14:00 Bed 13 Private MD: ED Physician Doug Hernandez HPI: 01/27 14:20 This 32 yrs old Female presents to ER via Ambulatory with complaints of Toothache. sb4 14:20 The patient presents with pain. The problem is located in the lower left third molar. sb4 Onset: The symptoms/episode began/occurred 3 month(s) ago. Duration: The symptoms are intermittent. Modifying factors: The symptoms are alleviated by over the counter medications, Tylenol, prescription meds, clindamycin, the symptoms are aggravated by chewing, talking. Associated signs and symptoms: Pertinent positives: pain, redness in area, swelling, facial, mandibular, Pertinent negatives: dysphagia, fever, inability to eat. The patient has experienced similar episodes in the past, and the symptoms today are exactly the same. The patient has been recently seen at the [facility] Emergency Department, last month, for similar complaints was given a prescription for antibiotics, was given a prescription for pain medications. 14:20 Patient with a root exposed molar cavity. She just got dental insurance but cannot get sb4 into see them for another 3 weeks. She has been compliant with the antibiotics, steroids, and dental practices that been advised to her. . Historical: - Allergies: 14:04 avocado; aa5 14:04 olive extract; aa5 - PMHx: 14:04 Anxiety; Depression; epilepsy; ocd; Seizures; aa5 - PSHx: 14:04 section; tubal ligation; aa5 ROS: 14:20 Constitutional: Negative for fever, chills, and weight loss, Eyes: Negative for injury, sb4 pain, redness, and discharge, Cardiovascular: Negative for chest pain, palpitations, and edema, Respiratory: Negative for shortness of breath, cough, wheezing, and pleuritic chest pain, Back: Negative for injury and pain, MS/Extremity: Negative for injury and deformity, Skin: Negative for injury, rash, and discoloration, Neuro: Negative for headache, weakness, numbness, tingling, and seizure. 14:20 ENT: Positive for dental pain, Negative for drainage from ear(s), ear pain, nasal discharge, rhinorrhea, sinus congestion, sinus pain, sore throat, difficulty swallowing, difficulty handling secretions, hoarseness. Exam: 14:20 Constitutional: This is a well developed, well nourished patient who is awake, alert, sb4 and in no acute distress. Head/Face: Normocephalic, atraumatic. Eyes: Extra-ocular motions intact. Periorbital areas with no swelling, redness, or edema. Cardiovascular: Regular rate and rhythm with a normal S1 and S2. Respiratory: Lungs have equal breath sounds bilaterally, clear to auscultation and percussion. No rales, rhonchi or wheezes noted. No increased work of breathing, no retractions or nasal flaring. Abdomen/GI: Soft, non-tender, no distension. Skin: Warm, dry with normal turgor. Normal color with no rashes, no lesions, and no evidence of cellulitis. MS/ Extremity: Pulses equal, no cyanosis. Neurovascular intact. Full, normal range of motion. 14:20 Head/face: Noted is swelling, tenderness, of the left jaw. 14:20 ENT: Dental exam: dental caries, that is moderate, specifically in the lower left third molar (#17), pain, that is moderate, specifically in the lower left third molar (#17). Vital Signs: 14:04 BP 117 / 75; Pulse 72; Resp 20 S; Temp 97.7(O); Pulse Ox 99% on R/A; Weight 96.62 kg aa5 (R); Height 5 ft. 5 in. (165.10 cm) (R); 14:42 BP 118 / 76; Pulse 76; Resp 18; Pulse Ox 99% on R/A; ld1 14:04 Body Mass Index 35.45 (96.62 kg, 165.10 cm) aa5 MDM: 14:06 Patient medically screened. sb4 14:20 Differential diagnosis: dental caries, gingivitis, dental abscess, pericoronitis. Data sb4 reviewed: vital signs, nurses notes, I have discussed the patient's presentation/case with the attending Emergency Department Physician; and as a result, I will discharge patient. Data reviewed: and as a result, I will discharge patient. Test considered but Not performed: CT: considered CT facial bones but no abscess is appreciated. no signs of severe infection indicating further workup. Counseling: I had a detailed discussion with the patient and/or guardian regarding: the need for outpatient follow up, a dentist. Administered Medications: 14:37 Drug: Decadron (dexamethasone) 10 mg Route: IM; Site: right deltoid; ld1 14:42 Follow up: Response: No adverse reaction ld1 14:42 Drug: Ketorolac 30 mg Route: IM; Site: left deltoid; ld1 14:42 Follow up: Response: No adverse reaction ld1 Disposition: 19:23 Co-signature as Attending Physician, Doug Hernandez MD I reviewed the patient's care rn provided by the Advanced Practice Provider and agree with the diagnosis and treatment plan. Disposition Summary: 01/27/23 14:17 Discharge Ordered Location: Home sb4 Problem: an ongoing problem sb4 Symptoms: are unchanged sb4 Condition: Stable sb4 Diagnosis - Dental root caries sb4 Followup: sb4 - With: Private Physician - When: As needed - Reason: Recheck today's complaints, Continuance of care, Re-evaluation by your physician Discharge Instructions: - Discharge Summary Sheet sb4 - Dental Pain, [id number] sb4 - Dental Caries, Adult, [id number] sb4 Forms: - Medication Reconciliation Form sb4 - Thank You Letter sb4 - Antibiotic Education sb4 - Prescription Opioid Use sb4 Prescriptions: - ketorolac 10 mg Oral tablet - take 1 tablet by ORAL route every 4-6 hours not to exceed 40mg in 24hrs for up sb4 to 5 days total use; 12 tablet; Refills: 0, Product Selection Permitted - Clindamycin HCl 300 mg Oral Capsule - take 1 capsule by ORAL route every 6 hours for 10 days; 40 capsule; Refills: 0, sb4 Product Selection Permitted - Medrol (Willy) 4 mg Oral Tablets, Dose Pack - take 1 tablet by ORAL route as directed - follow package instructions; 1 sb4 packet; Refills: 0, Product Selection Permitted Signatures: Doug Hernandez MD MD rn Calderon, Audri RN RN aa5 Alondra Jerome RN RN ld1 Winsome Mora PA-C PA-C sb4
--- NOTE | 2023-01-27 14:18 | ER ---
Nurse's Notes [facility] Name: Cora Marquez Age: 32 yrs Sex: Female : 1990 Arrival Date: 01/27/2023 Time: 14:00 Bed 13 Private MD: Diagnosis: Dental root caries Presentation: 01/27 14:04 Chief complaint: Patient states: toothache since last night. Pt reports being seen here aa5 and prescribed amoxicillin, pt reports she completed course of antibiotics. Pt states "the dentist won't see me until 3 weeks from now". Onset of symptoms was December 2022. 14:04 Acuity: MARYANA 5 aa5 14:04 Method Of Arrival: Ambulatory aa5 14:04 Coronavirus screen: At this time, the client does not indicate any symptoms associated aa5 with coronavirus-19. Ebola Screen: Patient denies travel to an Ebola-affected area in the 21 days before illness onset. Initial Sepsis Screen: Does the patient meet any 2 criteria? No. Patient's initial sepsis screen is negative. Does the patient have a suspected source of infection? No. Patient's initial sepsis screen is negative. Risk Assessment: Do you want to hurt yourself or someone else? Patient reports no desire to harm self or others. Historical: - Allergies: 14:04 avocado; aa5 14:04 olive extract; aa5 - PMHx: 14:04 Anxiety; Depression; epilepsy; ocd; Seizures; aa5 - PSHx: 14:04 section; tubal ligation; aa5 Screenin:42 [facility] ED Fall Risk Assessment (Adult) History of falling in the last 3 months, ld1 including since admission No falls in past 3 months (0 pts). Abuse screen: Denies threats or abuse. Denies injuries from another. Nutritional screening: No deficits noted. Tuberculosis screening: No symptoms or risk factors identified. Assessment: 14:42 Reassessment: See triage assessment. ld1 Vital Signs: 14:04 BP 117 / 75; Pulse 72; Resp 20 S; Temp 97.7(O); Pulse Ox 99% on R/A; Weight 96.62 kg aa5 (R); Height 5 ft. 5 in. (165.10 cm) (R); 14:42 BP 118 / 76; Pulse 76; Resp 18; Pulse Ox 99% on R/A; ld1 14:04 Body Mass Index 35.45 (96.62 kg, 165.10 cm) aa5 ED Course: 14:00 Patient arrived in ED. am2 14:02 Wins[facility] Mor[facility] sb4 14:02 Doug Hernandez MD is Attending Physician. sb4 14:04 Arm band placed on. aa5 14:05 Triage completed. aa5 14:36 Alondra Jerome, RN is Primary Nurse. ld1 14:42 Patient has correct armband on for positive identification. Placed in gown. Bed in low ld1 position. Call light in reach. Side rails up X2. 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 Pulse ox on. NIBP on. Door closed. Noise minimized. Warm blanket given. 14:42 No provider procedures requiring assistance completed. Patient did not have IV access ld1 during this emergency room visit. Administered Medications: 14:37 Drug: Decadron (dexamethasone) 10 mg Route: IM; Site: right deltoid; ld1 14:42 Follow up: Response: No adverse reaction ld1 14:42 Drug: Ketorolac 30 mg Route: IM; Site: left deltoid; ld1 14:42 Follow up: Response: No adverse reaction ld1 Medication: 14:42 VIS not applicable for this client. ld1 Outcome: 14:17 Discharge ordered by . sb4 14:42 Discharged to home ambulatory. ld1 14:42 Condition: stable 14:42 Discharge instructions given to patient, Instructed on discharge instructions, follow up and referral plans. medication usage, Demonstrated understanding of instructions, follow-up care, medications, Prescriptions given X 3. 14:44 Patient left the ED. ld1 Signatures: Kayli Cline, RN RN aa5 Maribel Mccarthy am2 Alondra Jerome, RN RN ld1 Winsome Mora PA-C PA-C sb4 Corrections: (The following items were deleted from the chart) 14:07 14:04 Pulse 72bpm; Resp 20bpm; Spontaneous; Pulse Ox 99% RA; Temp 97.7F Oral; 96.62 kg aa5 Reported; Height 5 ft. 5 in. Reported; BMI: 35.4; aa5
[2023-01-27] MEDS ORDERED: KETOROLAC 30 MG/ML INJ ONE (14:42)
[2023-01-27] MEDS ORDERED: dexAMETHasone 10 MG/ML VIAL ONE (14:42)
[2023-01-27 15:05] VITALS: TEMP 97.7; O2SAT 99
[2023-01-27 15:06] VITALS: BP 118/76
== END 2023-01-27 14:44 | disposition home or self-care (01) ==
LOC: ER 13:59
DX: K02.7 Dental root caries (principal); Z91.018 Allergy to other foods
CPT/HCPCS: 96372; 99284; J1100

== ENCOUNTER 2023-10-18 09:08 | Emergency (ER) | payer BC ==
--- OUTSIDE RECORDS SUMMARY | 2023-10-18 09:14 | XMS REPORT | Continuity of Care Document ---
:1990 Author Organization [facility] t Address [address] [facility] [address] [place] [address] Care Team Providers Name Role Phone [email or web address] Attending Clinician Unavailable Antwan Pollard Attending Clinician Jarrod SWAN, Ellie Cole Attending Clinician [phone] ELLIE GARAY Attending Clinician Unavailable [email or web address]_S Admitting Clinician Unavailable Payers Payer Name Policy Type Policy Number Effective Date Expiration Date S jay [place] [id number] 2022 2023 00:00: 00 [place]PPO[place] 00:00:00 BCBS 2 [id number] 2022 00:00:00 Problems Condition Condition Condition Status Onset Resolution Last Treating Co mments Source Name Details Category Date Date Treatment Clinician Date 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 11:52:05 l (disorder) (disorder) He rmann Active Problem 12/13/2022 [facility] 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 Dae n (disorder) (disorder) Active Problem 12/13/2022 [facility] Allergies, Adverse Reactions, Alerts Allergy Allergy Status Severity Reaction(s) Onset Inactive Treating Comm ents Source Name Type Date Date Clinician No Known No Known Active Memori a Medicati Medicati l on on [place] Allergie Allergie s s Social History Smoking Status Start Date Stop [...] EVENING, # 210 tab, 2 Refill(s), Pharmacy: [facility] #[id number], 167.64, cm, 08/07/21 11:05:00 CDT, Height, 93.182, kg, 08/07/21 11:05:00 CDT, Weight levETIRAcet Yes See Memori a am 500 mg 1-11 Instructio l oral tablet 23:59: ns, TAKE 3 [place] 00 TABLETS BY MOUTH EVERY MORNING AND 4 TABLETS EVERY EVENING, # 210 tab, 2 Refill(s), Pharmacy: [facility] #[id number], 167.64, cm, 08/07/21 11:05:00 CDT, Height, 93.182, kg, 08/07/21 11:05:00 CDT, Weight levETIRAcet Yes See Memori a am 500 mg 1-11 Instructio l oral tablet 23:59: ns, TAKE 3 [place] 00 TABLETS BY MOUTH EVERY MORNING AND 4 TABLETS EVERY EVENING, # 210 tab, 2 Refill(s), Pharmacy: [facility] #[id number], 167.64, cm, 08/07/21 11:05:00 CDT, Height, 93.182, kg, 08/07/21 11:05:00 CDT, Weight levETIRAcet Yes See Memori a am 500 mg 1-11 Instructio l oral tablet 23:59: ns, TAKE 3 [place] 00 TABLETS BY MOUTH EVERY MORNING AND 4 TABLETS EVERY EVENING, # 210 tab, 2 Refill(s), Pharmacy: [facility] #[id number], 167.64, cm, 08/07/21 11:05:00 CDT, Height, 93.182, kg, 08/07/21 11:05:00 CDT, Weight lamoTRIgine 2021-0 Yes = 1 tab, Me moria 200 mg oral 9-04 PO, BID, # l tablet 19:40: 60 tab, 5 Dae n 00 Refill(s), Pharmacy: [facility] #[id number], 167.64, cm, 08/07/21 11:05:00 CDT, Height, 93.182, kg, 08/07/21 11:05:00 CDT, Weight lamoTRIgine 2021-0 Yes = 1 tab, Me moria 200 mg oral 9-04 PO, BID, # l tablet 19:40: 60 tab, 5 Dae n 00 Refill(s), Pharmacy: [facility] #[id number], 167.64, cm, 08/07/21 11:05:00 CDT, Height, 93.182, kg, 08/07/21 11:05:00 CDT, Weight lamoTRIgine 2021-0 Yes = 1 tab, Me moria 200 mg oral 9-04 PO, BID, # l tablet 19:40: 60 tab, 5 Dae n 00 Refill(s), Pharmacy: [facility] #[id number], 167.64, cm, 08/07/21 11:05:00 CDT, Height, 93.182, kg, 08/07/21 11:05:00 CDT, Weight lamoTRIgine 2-0 Yes = 1 tab, Me moria 200 mg oral 9-04 PO, BID, # l tablet 19:40: 60 tab, 5 Dae n 00 Refill(s), Pharmacy: [facility] #[id number], 167.64, cm, 08/07/21 11:05:00 CDT, Height, 93.182, kg, 08/07/21 11:05:00 CDT, Weight escitalopra 2021-0 Yes See Memori a m 20 mg 6-14 Instructio l oral tablet 15:01: ns, 1/2 Her jo 00 tab PO Daily 30 day, # 30 tab, 6 Refill(s), Pharmacy: [facility] #[id number], 167.64, cm, 08/07/21 11:05:00 CDT, Height, 93.182, kg, 08/07/21 11:05:00 CDT, Weight escitalopra 2021-0 Yes See Memori a m 20 mg 6-14 Instructio l oral tablet 15:01: ns, 1/2 Her jo 00 tab PO Daily 30 day, # 30 tab, 6 Refill(s), Pharmacy: [facility] #[id number], 167.64, cm, 08/07/21 11:05:00 CDT, Height, 93.182, kg, 08/07/21 11:05:00 CDT, Weight escitalopra 2021-0 Yes See Memori a m 20 mg 6-14 Instructio l oral tablet 15:01: ns, 1/2 Her jo 00 tab PO Daily 30 day, # 30 tab, 6 Refill(s), Pharmacy: [facility] #[id number], 167.64, cm, 08/07/21 11:05:00 CDT, Height, 93.182, kg, 08/07/21 11:05:00 CDT, Weight escitalopra 2021-0 Yes See Memori a m 20 mg 6-14 Instructio l oral tablet 15:01: ns, 1/2 Her jo 00 tab PO Daily 30 day, # 30 tab, 6 Refill(s), Pharmacy: [facility] #[id number], 167.64, cm, 08/07/21 11:05:00 CDT, Height, 93.182, kg, 08/07/21 11:05:00 CDT, Weight escitalopra 2021-0 Yes See Memori a m 20 mg 6-14 Instructio l oral tablet 15:01: ns, 1/2 Her jo 00 tab PO Daily 30 day, # 30 tab, 6 Refill(s), Pharmacy: [facility] #[id number], 167.64, cm, 08/07/21 11:05:00 CDT, Height, 93.182, kg, 08/07/21 11:05:00 CDT, Weight escitalopra 2020-0 Yes See Memori a m 20 mg 9-10 Instructio l oral tablet 16:45: ns, 1/2 Her jo 00 tab PO Daily 30 day, # 30 tab, 6 Refill(s), Pharmacy: [facility] #[id number], 167.64, cm, 08/07/21 11:05:00 CDT, Height, 93.182, kg, 08/07/21 11:05:00 CDT, Weight escitalopra 2020-0 Yes See Memori a m 20 mg 9-10 Instructio l oral tablet 16:45: ns, 1/2 Her jo 00 tab PO Daily 30 day, # 30 tab, 6 Refill(s), [facility][id number], 167.64, cm, 08/07/21 11:05:00 CDT, Height, 93.182, kg, 08/07/21 11:05:00 CDT, Weight escitalopra 2020-0 Yes See Memori a m 20 mg 9-10 Instructio l oral tablet 16:45: ns, 1/2 Her jo 00 tab PO Daily 30 day, # 30 tab, 6 Refill(s), Pharmacy: [facility] #[id number], 167.64, cm, 08/07/21 11:05:00 CDT, Height, 93.182, kg, 08/07/21 11:05:00 CDT, Weight escitalopra 2020-0 Yes See Memori a m 20 mg 9-10 Instructio l oral tablet 16:45: ns, 1/2 Her jo 00 tab PO Daily 30 day, # 30 tab, 6 Refill(s), Pharmacy: [facility] #[id number], 167.64, cm, 08/07/21 11:05:00 CDT, Height, 93.182, kg, 08/07/21 11:05:00 CDT, Weight escitalopra 2020-0 Yes See Memori a m 20 mg 9-10 Instructio l oral tablet 16:45: ns, 1/2 Her jo 00 tab PO Daily 30 day, # 30 tab, 6 Refill(s), Pharmacy: [facility] #[id number], 167.64, cm, 08/07/21 11:05:00 CDT, Height, 93.182, kg, 08/07/21 11:05:00 CDT, Weight escitalopra 2019-1 Yes = 1 tab, Me moria m 20 mg 2-11 PO, Daily, l oral tablet 20:30: # 30 tab, H ermann 00 6 Refill(s), Pharmacy: [facility] #[id number], 165.1, cm, 11/07/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, Height, 89.545, kg, 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/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, 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 lamotrigine 2020- Yes = 1 tab, Me moria 200 MG Oral 2-11 PO, BID, # l Tablet 20:30: 60 tab, 5 Dae n 00 Refill(s), Pharmacy: [facility] #[id number], 165.1, cm, 11/07/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, Height, 89.545, kg, 11/07/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, Weight escitalopra 2019- Yes = 1 tab, Me moria m 20 mg 2-11 PO, Daily, l oral tablet 20:30: # 30 tab, H ermann 00 6 Refill(s), Pharmacy: [facility] #[id number], 165.1, cm, 11/07/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, Height, 89.545, kg, 11/07/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, Weight lamotrigine 2019- Yes = 1 tab, Me moria 200 MG Oral 2-11 PO, BID, # l Tablet 20:30: 60 tab, 5 Dae n 00 Refill(s), Pharmacy: [facility] #[id number], 165.1, cm, 11/07/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, Height, 89.545, kg, 11/07/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, Weight escitalopra 2019- Yes = 1 tab, Me moria m 20 mg 2-11 PO, Daily, l oral tablet 20:30: # 30 tab, H ermann 00 6 Refill(s), Pharmacy: [facility] #[id number], 165.1, cm, 11/07/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, Height, 89.545, kg, 11/07/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, Weight lamotrigine 2020- Yes = 1 tab, Me moria 200 MG Oral 2-11 PO, BID, # l Tablet 20:30: 60 tab, 5 Dae n 00 Refill(s), Pharmacy: [facility] #[id number], 165.1, cm, 11/07/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, Height, 89.545, kg, 11/07/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, Weight escitalopra 2019- Yes = 1 tab, Me moria m 20 mg 2-11 PO, Daily, l oral tablet 20:30: # 30 tab, H ermann 00 6 Refill(s), Pharmacy: [facility] #[id number], 165.1, cm, 11/07/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, Height, 89.545, kg, 11/07/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, Weight lamotrigine 2019-11 Yes = 1 tab, Me moria 200 MG Oral 2-11 PO, BID, # l Tablet 20:30: 60 tab, 5 Dae n 00 Refill(s), Pharmacy: [facility] #[id number], 165.1, cm, 11/07/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, Height, 89.545, kg, 11/07/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, Weight escitalopra 2019- Yes = 1 tab, Me moria m 20 mg 2-11 PO, Daily, l oral tablet 20:30: # 30 tab, H ermann 00 6 Refill(s), Pharmacy: [facility] #[id number], 165.1, cm, 11/07/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, Height, 89.545, kg, 11/07/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, Weight lamotrigine 2019- Yes = 1 tab, Me moria 200 MG Oral 2-11 PO, BID, # l Tablet 20:30: 60 tab, 5 Dae n 00 Refill(s), Pharmacy: [facility] #[id number], 165.1, cm, 11/07/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, Height, 89.545, kg, 11/07/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, Weight Levetiracet 2019- Yes See Memori a am 500 MG 1-12 Instructio l Oral Tablet 22:31: ns, TAKE 3 [place] 00 TABLETS BY MOUTH EVERY MORNING AND 4 TABLETS BY MOUTH EVERY EVENING, # 210 tab, 1 Refill(s), [id number], 170.18, cm, 09/25/19 13:46:00 CDT, Height, 89.545, kg, 09/25/19 13:46:00 CDT, Weight Levetiracet 2019-11 Yes See Memori a am 500 MG 1-12 Instructio l Oral Tablet 22:31: ns, TAKE 3 [place] 00 TABLETS BY MOUTH EVERY MORNING AND 4 TABLETS BY MOUTH EVERY EVENING, # 210 tab, 1 Refill(s), [facility][id number], 170.18, cm, 09/25/19 13:46:00 CDT, Height, 89.545, kg, 09/25/19 13:46:00 CDT, Weight Levetiracet 2019-11 Yes See Memori a am 500 MG 1-12 Instructio l Oral Tablet 22:31: ns, TAKE 3 [place] 00 TABLETS BY MOUTH EVERY MORNING AND 4 TABLETS BY MOUTH EVERY EVENING, # 210 tab, 1 Refill(s), [facility][id number], 170.18, cm, 09/25/19 13:46:00 CDT, Height, 89.545, kg, 09/25/19 13:46:00 CDT, Weight Levetiracet 2019-11 Yes See Memori a am 500 MG 1-12 Instructio l Oral Tablet 22:31: ns, TAKE 3 [place] 00 TABLETS BY MOUTH EVERY MORNING AND 4 TABLETS BY MOUTH EVERY EVENING, # 210 tab, 1 Refill(s), [id number], 170.18, cm, 09/25/19 13:46:00 CDT, Height, 89.545, kg, 09/25/19 13:46:00 CDT, Weight Levetiracet 2019-11 Yes See Memori a am 500 MG 1-12 Instructio l Oral Tablet 22:31: ns, TAKE 3 [place] 00 TABLETS BY MOUTH EVERY MORNING AND 4 TABLETS BY MOUTH EVERY EVENING, # 210 tab, 1 Refill(s), Pharmacy: [facility] #[id number], 170.18, cm, 09/25/19 13:46:00 CDT, Height, 89.545, kg, 09/25/19 13:46:00 CDT, Weight Levetiracet 2018-11 Yes See Memori a am 500 MG 0-29 Instructio l Oral Tablet 19:17: ns, TAKE 3 [place] 07 TABLETS BY MOUTH EVERY MORNING AND 4 TABLETS EVERY EVENING, # 210 tab, 5 Refill(s), Pharmacy: [facility] #[id number] Levetiracet 2018-11 Yes See Memori a am 500 MG 0-29 Instructio l Oral Tablet 19:17: ns, TAKE 3 [place] 07 TABLETS BY MOUTH EVERY MORNING AND 4 TABLETS EVERY EVENING, # 210 tab, 5 Refill(s), Pharmacy: [facility] #[id number] Levetiracet 2018-11 Yes See Memori a am 500 MG 0-29 Instructio l Oral Tablet 19:17: ns, TAKE 3 [place] 07 TABLETS BY MOUTH EVERY MORNING AND 4 TABLETS EVERY EVENING, # 210 tab, 5 Refill(s), Pharmacy: [facility] #[id number] Levetiracet 2018-11 Yes See Memori a am 500 MG 0-29 Instructio l Oral Tablet 19:17: ns, TAKE 3 [place] 07 TABLETS BY MOUTH EVERY MORNING AND 4 TABLETS EVERY EVENING, # 210 tab, 5 Refill(s), Pharmacy: [facility] #[id number] Levetiracet 2018-11 Yes See Memori a am 500 MG 0-29 Instructio l Oral Tablet 19:17: ns, TAKE 3 [place] 07 TABLETS BY MOUTH EVERY MORNING AND 4 TABLETS EVERY EVENING, # 210 tab, 5 Refill(s), Pharmacy: [facility] #[id number] lamotrigine 2018-11 Yes = 1 tab, Me moria 200 MG Oral 0-29 PO, BID, # l Tablet 19:17: 60 tab, 5 Dae n 03 Refill(s), Pharmacy: [facility] #[id number] lamotrigine 2018-11 Yes = 1 tab, Me moria 200 MG Oral 0-29 PO, BID, # l Tablet 19:17: 60 tab, 5 Dae n 03 Refill(s), Pharmacy: [facility] #[id number] lamotrigine 2018-11 Yes = 1 tab, Me moria 200 MG Oral 0-29 PO, BID, # l Tablet 19:17: 60 tab, 5 Dae n 03 Refill(s), Pharmacy: [facility] #[id number] lamotrigine 2018-11 Yes = 1 tab, Me moria 200 MG Oral 0-29 PO, BID, # l Tablet 19:17: 60 tab, 5 Dae n 03 Refill(s), Pharmacy: [facility] #[id number] lamotrigine 2018-11 Yes = 1 tab, Me moria 200 MG Oral 0-29 PO, BID, # l Tablet 19:17: 60 tab, 5 Dae n 03 Refill(s), Pharmacy: [facility] #[id number] Escitalopra 2018-11 Yes 20 mg = 1 M emoria m 20 MG 0-29 tab, PO, l Oral Tablet 19:17: Daily, # He rmann [Lexapro] 00 30 tab, 5 Refill(s), [facility][id number] Escitalopra 2018-11 Yes 20 mg = 1 M emoria m 20 MG 0-29 tab, PO, l Oral Tablet 19:17: Daily, # He rmann [Lexapro] 00 30 tab, 5 Refill(s), [facility] #[id number] Escitalopra 2018-11 Yes 20 mg = 1 M emoria m 20 MG 0-29 tab, PO, l Oral Tablet 19:17: Daily, # He rmann [Lexapro] 00 30 tab, 5 Refill(s), [facility][id number] Escitalopra 2018-11 Yes 20 mg = 1 M emoria m 20 MG 0-29 tab, PO, l Oral Tablet 19:17: Daily, # He rmann [Lexapro] 00 30 tab, 5 Refill(s), [facility][id number] Escitalopra 2018-11 Yes 20 mg = 1 M emoria m 20 MG 0-29 tab, PO, l Oral Tablet 19:17: Daily, # He rmann [Lexapro] 00 30 tab, 5 Refill(s), [facility] #[id number] Levetiracet Yes See Memori a am 500 MG 1-23 Instructio l Oral Tablet 15:09: ns, TAKE 3 [place] 57 TABLETS BY MOUTH EVERY MORNING AND 4 TABLETS BY MOUTH EVERY EVENING, # 210 tab, 6 Refill(s), Pharmacy: [facility] [place] [address] Levetiracet Yes See Memori a am 500 MG 1-23 Instructio l Oral Tablet 15:09: ns, TAKE 3 [place] 57 TABLETS BY MOUTH EVERY MORNING AND 4 TABLETS BY MOUTH EVERY EVENING, # 210 tab, 6 Refill(s), Pharmacy: [facility] [place] [address] Levetiracet Yes See Memori a am 500 MG 1-23 Instructio l Oral Tablet 15:09: ns, TAKE 3 [place] 57 TABLETS BY MOUTH EVERY MORNING AND 4 TABLETS BY MOUTH EVERY EVENING, # 210 tab, 6 Refill(s), Pharmacy: [facility] [place] [address] Levetiracet Yes See Memori a am 500 MG 1-23 Instructio l Oral Tablet 15:09: ns, TAKE 3 [place] 57 TABLETS BY MOUTH EVERY MORNING AND 4 TABLETS BY MOUTH EVERY EVENING, # 210 tab, 6 Refill(s), Pharmacy: [facility] [place] [address] Levetiracet Yes See Memori a am 500 MG 1-23 Instructio l Oral Tablet 15:09: ns, TAKE 3 [place] 57 TABLETS BY MOUTH EVERY MORNING AND 4 TABLETS BY MOUTH EVERY EVENING, # 210 tab, 6 Refill(s), Pharmacy: [facility] [place] [address] lamotrigine Yes See Memori a 200 MG Oral 1-23 Instructio l Tablet 15:09: ns, TAKE 1 [place] 54 TABLET BY MOUTH TWICE DAILY, # 60 tab, 7 Refill(s), Pharmacy: [facility] lamotrigine Yes See Memori a 200 MG Oral 1-23 Instructio l Tablet 15:09: ns, TAKE 1 [place] 54 TABLET BY MOUTH TWICE DAILY, # 60 tab, 7 Refill(s), Pharmacy: [facility] lamotrigine 2018- Yes See Memori a 200 MG Oral 1-23 Instructio l Tablet 15:09: ns, TAKE 1 [place] 54 TABLET BY MOUTH TWICE DAILY, # 60 tab, 7 Refill(s), Pharmacy: [facility] lamotrigine Yes See Memori a 200 MG Oral 1-23 Instructio l Tablet 15:09: ns, TAKE 1 [place] 54 TABLET BY MOUTH TWICE DAILY, # 60 tab, 7 Refill(s), Pharmacy: [facility] lamotrigine Yes See Memori a 200 MG Oral 1-23 Instructio l Tablet 15:09: ns, TAKE 1 [place] 54 TABLET BY MOUTH TWICE DAILY, # 60 tab, 7 Refill(s), Pharmacy: [facility] [address] [place] [address] 2017-11 No See Memori a am 500 MG 2-29 Instructio l Oral Tablet 00:39: ns, # 210 H ermann 37 tab, TAKE 3 TABLETS BY MOUTH EVERY MORNING AND 4 TABLETS BY MOUTH EVERY EVENING, Pharmacy: [facility] [address] [place] [address] 2017-11 No See Memori a am 500 MG 2-29 Instructio l Oral Tablet 00:39: ns, # 210 H ermann 37 tab, TAKE 3 TABLETS BY MOUTH EVERY MORNING AND 4 TABLETS BY MOUTH EVERY EVENING, Pharmacy: [facility] [address] [place] [address] 2017-11 No See Memori a am 500 MG 2-29 Instructio l Oral Tablet 00:39: ns, # 210 H ermann 37 tab, TAKE 3 TABLETS BY MOUTH EVERY MORNING AND 4 TABLETS BY MOUTH EVERY EVENING, Pharmacy: [facility] [address] [place] [address] 2017-11 No See Memori a am 500 MG 2-29 Instructio l Oral Tablet 00:39: ns, # 210 H ermann 37 tab, TAKE 3 TABLETS BY MOUTH EVERY MORNING AND 4 TABLETS BY MOUTH EVERY EVENING, Pharmacy: [facility] [address] [place] [address] 2017-11 No See Memori a am 500 MG 2-29 Instructio l Oral Tablet 00:39: ns, # 210 H ermann 37 tab, TAKE 3 TABLETS BY MOUTH EVERY MORNING AND 4 TABLETS BY MOUTH EVERY EVENING, Pharmacy: [facility] [address] [place] [address] 2017-11 No See Memori a am 500 MG 1-01 Instructio l Oral Tablet 23:43: ns, # 210 H ermann 51 tab, Refill(s) 1, TAKE 3 TABLETS BY MOUTH EVERY MORNING AND 4 TABLETS BY MOUTH EVERY EVENING, Pharmacy: [facility] lamotrigine 2017-11 No See Memori a 200 MG Oral 1-01 Instructio l Tablet 23:43: ns, # 214 Dae n 51 tab, Refill(s) 1, TAKE 1 TABLET BY MOUTH TWICE DAILY, Pharmacy: [facility] Levetiracet 2017-11 No See Memori a am 500 MG 1-01 Instructio l Oral Tablet 23:43: ns, # 210 H ermann 51 tab, Refill(s) 1, TAKE 3 TABLETS BY MOUTH EVERY MORNING AND 4 TABLETS BY MOUTH EVERY EVENING, Pharmacy: [facility] lamotrigine 2017-11 No See Memori a 200 MG Oral 1-01 Instructio l Tablet 23:43: ns, # 214 Dae n 51 tab, Refill(s) 1, TAKE 1 TABLET BY MOUTH TWICE DAILY, Pharmacy: [facility] [address] [place], [place] [address]cet 2017-11 No See Memori a am 500 MG 1-01 Instructio l Oral Tablet 23:43: ns, # 210 H ermann 51 tab, Refill(s) 1, TAKE 3 TABLETS BY MOUTH EVERY MORNING AND 4 TABLETS BY MOUTH EVERY EVENING, Pharmacy: [facility] lamotrigine 2017-11 No See Memori a 200 MG Oral 1-01 Instructio l Tablet 23:43: ns, # 214 Dae n 51 tab, Refill(s) 1, TAKE 1 TABLET BY MOUTH TWICE DAILY, Pharmacy: [facility]-11 No See Memori a am 500 MG 1-01 Instructio l Oral Tablet 23:43: ns, # 210 H ermann 51 tab, Refill(s) 1, TAKE 3 TABLETS BY MOUTH EVERY MORNING AND 4 TABLETS BY MOUTH EVERY EVENING, Pharmacy: [facility] lamotrigine 2017-11 No See Memori a 200 MG Oral 1-01 Instructio l Tablet 23:43: ns, # 214 Dae n 51 tab, Refill(s) 1, TAKE 1 TABLET BY MOUTH TWICE DAILY, Pharmacy: [facility] Levetiracet 2017-11 No See Memori a am 500 MG 1-01 Instructio l Oral Tablet 23:43: ns, # 210 H ermann 51 tab, Refill(s) 1, TAKE 3 TABLETS BY MOUTH EVERY MORNING AND 4 TABLETS BY MOUTH EVERY EVENING, Pharmacy: [facility] [id number] lamotrigine 2018- No See Yonisori a 200 MG Oral 11-28 Instructio l Tablet 23:43: ns, # 214 Dae n 51 tab, Refill(s) 1, TAKE 1 TABLET BY MOUTH TWICE DAILY, Pharmacy: [facility] [id number] Vital Signs Vital Name Observation Time Observation Value Comments Source Systolic (mm Hg) 2022-12-10 20:37:00 Yamil rial [place] Diastolic (mm Hg) 2022-12-10 20:37:00 Mem [facility] [place] Heart Rate 2022-12-10 20:37:00 [facility] [place] Height 2022-12-10 20:37:00 5 [ft_i] [facility] [place] Weight 2022-12-10 20:37:00 [facility] [place] BMI Calculated 2022-12-10 20:37:00 [facility] [place] Systolic (mm Hg) 2021-08-07 15:53:00 Yamil rial [place] Diastolic (mm Hg) 2021-08-07 15:53:00 Mem o[facility] [place] Heart Rate 2021-08-07 15:53:00 [facility] [place] Respitory Rate 2021-08-07 15:53:00 [facility] [place] Height 2021-08-07 15:53:00 167.64 cm [facility] [place] Weight 2021-08-07 15:53:00 [facility] [place] BMI Calculated 2021-08-07 15:53:00 Mem[facility] [place] Systolic (mm Hg) 2020-11-07 20:11:00 Yamil rial [place] Diastolic (mm Hg) 2020-11-07 20:11:00 Mem [facility] [place] Heart Rate 2020-11-07 20:11:00 [facility] [place] Respitory Rate 2020-11-07 20:11:00 [facility] [place] Height 2020-11-07 20:11:00 165.1 cm [facility] [place] Weight 2020-11-07 20:11:00 [facility] [place] BMI Calculated 2020-11-07 20:11:00 [facility] [place] Systolic (mm Hg) 2019-09-25 18:39:00 [facility] [place] Diastolic (mm Hg) 2019-09-25 18:39:00 [facility] [place] Heart Rate 2019-09-25 18:39:00 [facility] [place] Respitory Rate 2019-09-25 18:39:00 [facility] [place] Height 2019-09-25 18:39:00 170.18 cm [facility] [place] Weight 2019-09-25 18:39:00 [facility] [place] BMI Calculated 2019-09-25 18:39:00 [facility] [place] Heart Rate 2018-12-20 14:55:00 [facility] [place] Systolic (mm Hg) 2018-12-20 14:55:00 [facility] [place] Diastolic (mm Hg) 2018-12-20 14:55:00 [facility] [place] Weight 2018-12-20 14:55:00 [facility] [place] BMI Calculated 2018-12-20 14:55:00 [facility] [place] Height 2018-12-20 14:55:00 165.1 cm [facility] [place] Procedures This patient has no known procedures. Encounters Start End Encounter Admission Attending Care Care Encounter Source Date/Time Date/Time Type Type Clinicians Facility Department ID 2023-12-13 2023-12-[address] [facility] [id number] [facility] 09:00:00 09:00:00 13 samson Laguerre 2023-12-13 2023-12-13 [id number] [facility] 09:00:00 09:00:00 13 samson Laguerre 2023-10-07 2023-10-07 Outpatient [facility] PRIV PRIV [id number] [facility] 00:[facility]:00 00:00:00 diyala_S [id number] Medic al 2023-10-05 2023-10-05 Outpatient [facility] PRIV PRIV [id number] [facility] 00:00:00 00:00:00 diyala_S [id number] Medic al 2023-09-30 2023-09-30 Outpatient [facility] PRIV PRIV [id number] [facility] 00:00:00 00:00:00 diyala_S [id number] Medic al 2023-09-21 2023-09-21 Outpatient [facility] PRIV PRIV [id number] [facility] 00:00:00 00:00:00 diyala_S [id number] Medic al 2023-09-21 2023-09-21 Outpatient [facility]_Ka PRIV PRIV [id number] [facility] 00:00:00 00:00:00 diyala_S [id number] Medic al 2023-09-21 2023-09-21 Outpatient GC_GCBZW_Ka PRIV PRIV [id number] [facility] 00:00:00 00:00:00 diyala_S [id number] Medic al 2023-09-20 2023-09-20 Outpatient GC_GCBZW_Ka PRIV PRIV [id number] [facility] 00:00:00 00:00:00 diyala_S [id number] Medic al 2022-12-10 2022-12-11 Outpatient MHIE MNA [id number] [facility] 20:30:00 05:59:59 Neurology 12 l Chilango Laguerre 2022-12-10 2022-12-11 Outpatient MHIE MNA [id number] Memoria 20:30:00 05:59:59 Neurology 12 l [place]il[place] Laguerre 2022-12-10 2022-12-10 [facility] [id number] 14:30:00 23:59:59 Antwan 12 [place] 2022-12-10 2022-12-10 Outpatient MHIE MHIE [id number] Memoria 14:30:00 14:30:00 12 samson Laguerre 2022-08-13 2022-08-13 Ambulatory nullFlavo MNA [id number] [facility] 14:15:00 14:15:00 Pre-Reg r Neurology 11 l Chil[place] Laguerre 2022-08-13 2022-08-13 Ambulatory nullFlavo MNA [id number] [facility] 14:15:00 14:15:00 Pre-Reg r Neurology 11 l Chilango Contehann 2022-08-13 2022-08-13 Outpatient MHIE MHIE [id number] [facility]oria 09:15:00 09:15:00 11 samson [place] 2022-08-13 2022-08-13 Outpatient [facility] [id number] 09:15:00 09:15:00 Antwan 11 Arnoldo 2022-05-06 2022-05-06 Office Ivan Garay [id number] Becky 10:30:00 11:00:00 Visit Ellie Patrick [id number] Se roque Cole [id number] 2022-05-06 2022-05-06 Outpatient BECKY GARAY BECKY [id number] [facility] 00:00:00 00:00:00 ELLIE Semegan ugarte 2021-08-07 2021-08-08 Outpatient nullFlavo MNA [id number] [facility] 16:00:00 04:59:59 r Neurology 10 l [place] 2021-08-07 2021-08-08 Outpatient nullFlavo MNA [id number] [facility] 16:00:00 04:59:59 r Neurology 10 l [place] 2021-08-07 2021-08-07 [id number] 11:00:00 23:59:59 Antwan 10 [place] 2021-08-07 2021-08-07 Outpatient MHIE MHIE [id number] Memoria 11:00:00 11:00:00 10 l [place] 2020-11-07 2020-11-08 Outpatient nullFlavo MNA [id number] [facility] 19:45:00 05:59:59 r Neurology 09 l [place] 2020-11-07 2020-11-08 Outpatient nullFlavo MNA [id number] [facility] 19:45:00 05:59:59 r Neurology 09 l [place] 2020-11-07 2020-11-07 [id number] 13:45:00 23:59:59 Antwan 09 [place] 2020-11-07 2020-11-07 Outpatient MHIE MHIE [id number] Memoria 13:45:00 13:45:00 09 l [place] 2020-09-09 2020-09-09 Ambulatory nullFlavo MNA [id number] [facility] 14:15:00 14:15:00 Pre-Reg r Neurology 08 l [place] 2020-09-09 2020-09-09 Ambulatory nullFlavo MNA [id number] [facility] 14:15:00 14:15:00 Pre-Reg r Neurology 08 l [place]uer[place] 2020-09-09 2020-09-09 Outpatient MHIE MHIE [id number] Memoria 09:15:00 09:15:00 08 l [place] 2020-09-09 2020-09-09 Outpatient [facility] [id number] 09:15:00 09:15:00 Antwan 08 [place] 2020-06-17 2020-06-17 Ambulatory nullFlavo MNA [id number] Memoria 19:00:00 19:00:00 Pre-Reg r Neurology 06 l [place] Laguerre 2020-06-17 2020-06-17 Ambulatory nullFlavo MNA [id number] Mem[facility] 19:00:00 19:00:00 Pre-Reg r Neurology 07 l [place] 2020-06-17 2020-06-17 Ambulatory nullFlavo MNA [id number] [facility] 19:00:00 19:00:00 Pre-Reg r Neurology 06 l Ch[place] Laguerre 2020-06-17 2020-06-17 Ambulatory nullFlavo MNA [id number] [facility]oria 19:00:00 19:00:00 Pre-Reg r Neurology 07 l [place] 2020-06-17 2020-06-17 Outpatient MHIE MHIE [id number] Memoria 14:00:00 14:00:00 07 samson [place] 2020-06-17 2020-06-17 Outpatient MHIE MHIE [id number] Memoria 14:00:00 14:00:00 06 samson [place] 2020-06-17 2020-06-17 Outpatient [facility] [id number] 14:00:00 14:00:00 Antwan 07 [place] 2020-06-17 2020-06-17 Outpatient [facility] [id number] 14:00:00 14:00:00 Antwan 06 [place] 2019-12-28 2019-12-30 Outside nullFlavo MNA [id number] [facility] 20:20:23 05:59:59 Medical r Neurology 01 l Records Chilango Laguerre 2019-12-28 2019-12-30 Outside nullFlavo MNA [id number] [facility]oria 20:20:23 05:59:59 Medical r Neurology 01 l Records Chilango Laguerre 2019-12-28 2019-12-29 [id number] 14:20:23 23:59:59 2019-09-25 2019-09-26 Outpatient nullFlavo MNA [id number] Memoria 19:15:00 04:59:59 r Neurology 05 samson [place] 2019-09-25 2019-09-26 Outpatient nullFlavo MNA [id number] Memoria 19:15:00 04:59:59 r Neurology 05 samson [place] 2019-09-25 2019-09-25 [id number] 14:15:00 23:59:59 Antwan Lewis [place]cl[place] 2019-09-25 2019-09-25 Outpatient MHIE MHIE [id number] Memoria 14:15:00 14:15:00 05 samson [place] 2019-08-17 2019-08-17 Ambulatory nullFlavo MNA [id number] Memoria 16:45:00 16:45:00 Pre-Reg r Neurology 04 l [place] 2019-08-17 2019-08-17 Ambulatory nullFlavo MNA [id number] Memoria 16:45:00 16:45:00 Pre-Reg r Neurology 04 samson [place] 2019-08-17 2019-08-17 Outpatient MHIE MHIE [id number] Memoria 11:45:00 11:45:00 [place] 2019-08-17 2019-08-17 [id number] 11:45:00 11:45:00 Antwan [place] Mclaughlin 2019-06-19 2019-06-19 Ambulatory nullFlavo MNA [id number] Memoria 18:00:00 18:00:00 Pre-Reg r Neurology 03 samson [place] 2019-06-19 2019-06-19 Ambulatory nullFlavo MNA [id number] Memoria 18:00:00 18:00:00 Pre-Reg r Neurology 03 samson Contehann 2019-06-19 2019-06-19 Outpatient MHIE MHIE [id number] Memoria 13:00:00 13:00:00 03 samson [place] 2019-06-19 2019-06-19 [facility]patient [facility] [id number] 13:00:00 13:00:00 Antwan 03 [place] 2018-12-20 2018-12-21 Outpatient nullFlavo MNA [id number] Memoria 14:45:00 05:59:59 r Neurology 02 samson [place] 2018-12-20 2018-12-21 Outpatient nullFlavo MNA [id number] Memoria 14:45:00 05:59:59 r Neurology 02 l Chilango Contehann 2018-12-20 2018-12-20 Outpatient [facility] [id number] 08:45:00 23:59:59 Antwan 02 [place] 2018-12-20 2018-12-20 Outpatient MHIE MHIE [id number] Memoria 08:45:00 08:45:00 02 samson [place] 2018-12-14 2018-12-14 Ambulatory nullFlavo MNA [id number] Memoria 19:00:00 19:00:00 Pre-Reg r Neurology 01 l [place] 2018-12-14 2018-12-14 Ambulatory nullFlavo MNA [id number] Memoria 19:00:00 19:00:00 Pre-Reg r Neurology 01 l [place] 2018-12-14 2018-12-14 Outpatient MHIE MHIE [id number] Memoria 13:00:00 13:00:00 01 samson [place] 2018-12-14 2018-12-14 [facility] [id number] 13:00:00 13:00:00 Antwan 01 [place] 2018-06-08 2018-06-08 Outpatient MHIE MHIE [id number] Memoria 13:45:00 13:45:00 00 samson [place] 2018-06-08 2018-06-08 Outpatient MHIE MHIE [id number] Memoria 13:45:00 13:45:00 00 samson Laguer[place] Results Test Description Test Time Test Comments Results Result Comments Source HEMATOLOGY 2018-12-15 15:06:00 Test Item Value Reference Range Interpretation Comme nts MPV (test code = MPV) 11.5 7.5-12.5 [facility] HospitalMdqegxpBVVGSLLYDI8659-18-21 15:06:00 Test Item Value Reference Range Interpretation Comments Eosinophils # (test code = Eosinophils 389 15-500 #) [facility] HospitalLulltciVOUHBQPYIC4796-33-34 15:06:00 Test Item Value Reference Range Interpretation Comments Basophils # (test code 78 See_Comment [Aut omated message] The = Basophils #) system which generated this result tra nsmitted reference range : <=200. The reference r may was not used to int erpret this result as normal/abnormal . [facility] HospitalKojdhvrEVFZPNMDGL5137-66-90 15:06:00 Test Item Value Reference Range Interpretation Comments WBC X 10x3 (test code = WBC X 10x3) 11.1 3.8-10.8 [facility] HospitalQuqxthnTPWPBZYLMV1634-16-07 15:06:00 Test Item Value Reference Range Interpretation Comments Lymphocytes (test code = Lymphocytes) 25.0 [facility] HospitalGxhbrdjBIDAYHYSGI6680-47-73 15:06:00 Test Item Value Reference Range Interpretation Comments Segs (test code = Segs) 64.3 [facility] HospitalWucgpevCWDISJGINW5666-60-96 15:06:00 Test Item Value Reference Range Interpretation Comments Hgb (test code = Hgb) 14.1 11.7-15.5 [facility] HospitalYazszazRLKVWWZPXT4380-55-87 15:06:00 Test Item Value Reference Range Interpretation Comments RBC X 10x6 (test code = RBC X 10x6) 5.16 3.80-5.10 [facility] HospitalCxihzmoGTTDEPACIT9286-22-69 15:06:00 Test Item Value Reference Range Interpretation Comments MCV (test code = MCV) 82.2 80.0-100.0 [facility] HospitalKpfpayrUSUUKDJNJR2257-32-89 15:06:00 Test Item Value Reference Range Interpretation Comments Hct (test code = Hct) 42.4 35.0-45.0 [facility]BhxxahjWCZHRFXPSS0167-24-26 15:06:00 Test Item Value Reference Range Interpretation Comments Lamotrigine Lvl (test code = 10.2 4.0-18.0 Lamotrigine Lvl) [facility]2019-01-18 15:06:00 Test Item Value Reference Range Interpretation Comments BUN (test code = BUN) 12 7-25 [facility]2019-01-18 15:06:00 Test Item Value Reference Range Interpretation Comments Glucose Lvl (test code = Glucose Lvl) 57 65-99 [facility]2019-01-18 15:06:00 Test Item Value Reference Range Interpretation Comments ALANINE AMINOTRANSFERASE (test code = 12 6-29 ALANINE AMINOTRANSFERASE) [facility]2019-01-18 15:06:00 Test Item Value Reference Range Interpretation Comments ASPARTATE TRANSAMINASE (test code = 11 1030 ASPARTATE TRANSAMINASE) [facility]2019-01-18 15:06:00 Test Item Value Reference Range Interpretation Comments CO2 (test code = CO2) 29 20-32 [facility]2019-01-18 15:06:00 Test Item Value Reference Range Interpretation Comments Total Protein (test code = Total 7.0 6.1-8.1 Protein) [facility]2019-01-18 15:06:00 Test Item Value Reference Range Interpretation Comments Albumin Lvl (test code = Albumin Lvl) 4.3 3.6-5.1 [facility]2019-01-18 15:06:00 Test Item Value Reference Range Interpretation Comments Creatinine Lvl (test code = Creatinine 0.78 0.50-1.10 Lvl) [facility]2019-01-18 15:06:00 Test Item Value Reference Range Interpretation Comments eGFR NON-AFR. KYRGYZ (test code = 104 eGFR NON-AFR. KYRGYZ) [facility]2019-01-18 15:06:00 Test Item Value Reference Range Interpretation Comments eGFR (test code = eGFR 121 ) [facility]2019-01-18 15:06:00 Test Item Value Reference Range Interpretation Comments Globulin (test code = Globulin) 2.7 1.9-3.7 [facility]2019-01-18 15:06:00 Test Item Value Reference Range Interpretation Comments A/G Ratio (test code = A/G Ratio) 1.6 1.0-2.5 [facility]2019-01-18 15:06:00 Test Item Value Reference Range Interpretation Comments Alk Phos (test code = Alk Phos) 73 33-115 [facility]2019-01-18 15:06:00 Test Item Value Reference Range Interpretation Comments Bili Total (test code = Bili Total) 0.3 0.2-1.2 [facility]2019-01-18 15:06:00 Test Item Value Reference Range Interpretation Comments Sodium Lvl (test code = Sodium Lvl) 140 135-146 [facility]2019-01-18 15:06:00 Test Item Value Reference Range Interpretation Comments B/C Ratio (test code = B/C NOT APPLICABLE 622 Ratio) [facility]2019-01-18 15:06:00 Test Item Value Reference Range Interpretation Comments Potassium Lvl (test code = Potassium 4.0 3.5-5.3 Lvl) [facility]2019-01-18 15:06:00 Test Item Value Reference Range Interpretation Comments Chloride Lvl (test code = Chloride Lvl) 103 98-110 [facility]2019-01-18 15:06:00 Test Item Value Reference Range Interpretation Comments Calcium Lvl (test code = Calcium Lvl) 9.4 8.6-10.2 [facility] HospitalAupjiskVSUCVRHLFJ8015-10-67 15:06:00 Test Item Value Reference Range Interpretation Comments Eosinophils (test code = Eosinophils) 3.5 [facility] HospitalEomqebiAJIZQAESBY0632-30-88 15:06:00 Test Item Value Reference Range Interpretation Comments Basophils (test code = Basophils) 0.7 [facility] HospitalIjcnwwlEOBRHUWDNO5074-96-51 15:06:00 Test Item Value Reference Range Interpretation Comments Monocytes (test code = Monocytes) 6.5 [facility] HospitalKrqpmndBWXRCVFGQZ4501-18-11 15:06:00 Test Item Value Reference Range Interpretation Comments MCHC (test code = MCHC) 33.3 32.0-36.0 [facility] HospitalOmziudpXUSJLTMFBZ6369-86-60 15:06:00 Test Item Value Reference Range Interpretation Comments MCH (test code = MCH) 27.3 pg 27.0-33.0 [facility] HospitalAbrdkvwFTGPKELJYU9018-75-65 15:06:00 Test Item Value Reference Range Interpretation Comments RDW (test code = RDW) 14.4 11.0-15.0 [facility] HospitalSbdangdGKDCPGVZWU6445-57-00 15:06:00 Test Item Value Reference Range Interpretation Comments Platelet (test code = Platelet) 234 140-400 [facility] HospitalPrjxzdkAYRWCNIXNW0011-19-59 15:06:00 Test Item Value Reference Range Interpretation Comments Neutrophils # (test code = Neutrophils 8819 0301-3805 #) [facility] HospitalTwihiafOMNFTTZWYH3534-44-94 15:06:00 Test Item Value Reference Range Interpretation Comments Lymphocytes # (test code = Lymphocytes [phone] #) [facility] HospitalYnezjojYUQFGCNGAH2722-92-24 15:06:00 Test Item Value Reference Range Interpretation Comments Monocytes # (test code = Monocytes #) 722 200-950 [facility] HospitalVuhfuotZWHZDJSMIY1848-68-95 15:06:00 Test Item Value Reference Range Interpretation Comments MPV (test code = MPV) 11.5 7.5-12.5 [facility] HospitalCgvzhosASWPZGRBUN3328-39-76 15:06:00 Test Item Value Reference Range Interpretation Comments Eosinophils # (test code = Eosinophils 389 15-500 #) [facility] HospitalOsfixasHKHBWGYNKB7590-39-03 15:06:00 Test Item Value Reference Range Interpretation Comments Basophils # (test code 78 See_Comment [Aut omated message] The = Basophils #) system which generated this result tra nsmitted reference range : <=200. The reference r may was not used to int erpret this result as normal/abnormal . [facility] HospitalKgrwiwdMWVSFNVTQM8390-40-09 15:06:00 Test Item Value Reference Range Interpretation Comments WBC X 10x3 (test code = WBC X 10x3) 11.1 3.8-10.8 [facility] HospitalWmrxuuyPMDVQCZAJT4603-73-11 15:06:00 Test Item Value Reference Range Interpretation Comments Lymphocytes (test code = Lymphocytes) 25.0 [facility] HospitalEvajldkKKUAMCRWSW4359-92-81 15:06:00 Test Item Value Reference Range Interpretation Comments Segs (test code = Segs) 64.3 [facility] HospitalFhmjlxmKHUQDIZXBT3187-44-57 15:06:00 Test Item Value Reference Range Interpretation Comments Hgb (test code = Hgb) 14.1 11.7-15.5 [facility] HospitalCbeggqhNWWHBIPSND9140-03-48 15:06:00 Test Item Value Reference Range Interpretation Comments RBC X 10x6 (test code = RBC X 10x6) 5.16 3.80-5.10 [facility] HospitalDqnfopvHUHXUDAFRK5765-99-52 15:06:00 Test Item Value Reference Range Interpretation Comments MCV (test code = MCV) 82.2 80.0-100.0 [facility] HospitalNnhylofPZFPAIWESF4988-38-29 15:06:00 Test Item Value Reference Range Interpretation Comments Hct (test code = Hct) 42.4 35.0-45.0 [facility] CampusQbfopczVWLKTFTWJN9777-08-87 15:06:00 Test Item Value Reference Range Interpretation Comments Lamotrigine Lvl (test code = 10.2 4.0-18.0 Lamotrigine Lvl) [facility]2019-01-18 15:06:00 Test Item Value Reference Range Interpretation Comments BUN (test code = BUN) 12 7-25 [facility]2019-01-18 15:06:00 Test Item Value Reference Range Interpretation Comments Glucose Lvl (test code = Glucose Lvl) 57 65-99 [facility]2019-01-18 15:06:00 Test Item Value Reference Range Interpretation Comments ALANINE AMINOTRANSFERASE (test code = 12 6-29 ALANINE AMINOTRANSFERASE) [facility]2019-01-18 15:06:00 Test Item Value Reference Range Interpretation Comments ASPARTATE TRANSAMINASE (test code = 11 10-30 ASPARTATE TRANSAMINASE) [facility]2019-01-18 15:06:00 Test Item Value Reference Range Interpretation Comments CO2 (test code = CO2) 29 20-32 [facility]2019-01-18 15:06:00 Test Item Value Reference Range Interpretation Comments Total Protein (test code = Total 7.0 6.1-8.1 Protein) [facility]2019-01-18 15:06:00 Test Item Value Reference Range Interpretation Comments Albumin Lvl (test code = Albumin Lvl) 4.3 3.6-5.1 [facility]2019-01-18 15:06:00 Test Item Value Reference Range Interpretation Comments Creatinine Lvl (test code = Creatinine 0.78 0.50-1.10 Lvl) [facility]2019-01-18 15:06:00 Test Item Value Reference Range Interpretation Comments eGFR NON-AFR. KYRGYZ (test code = 104 eGFR NON-AFR. KYRGYZ) [facility]2019-01-18 15:06:00 Test Item Value Reference Range Interpretation Comments eGFR (test code = eGFR 121 ) [facility]2019-01-18 15:06:00 Test Item Value Reference Range Interpretation Comments Globulin (test code = Globulin) 2.7 1.9-3.7 [facility]2019-01-18 15:06:00 Test Item Value Reference Range Interpretation Comments A/G Ratio (test code = A/G Ratio) 1.6 1.0-2.5 [facility]2019-01-18 15:06:00 Test Item Value Reference Range Interpretation Comments Alk Phos (test code = Alk Phos) 73 33-115 [facility]2019-01-18 15:06:00 Test Item Value Reference Range Interpretation Comments Bili Total (test code = Bili Total) 0.3 0.2-1.2 [facility]2019-01-18 15:06:00 Test Item Value Reference Range Interpretation Comments Sodium Lvl (test code = Sodium Lvl) 140 135-146 [facility]2019-01-18 15:06:00 Test Item Value Reference Range Interpretation Comments B/C Ratio (test code = B/C NOT APPLICABLE 6-22 Ratio) [facility]2019-01-18 15:06:00 Test Item Value Reference Range Interpretation Comments Potassium Lvl (test code = Potassium 4.0 3.5-5.3 Lvl) [facility]2019-01-18 15:06:00 Test Item Value Reference Range Interpretation Comments Chloride Lvl (test code = Chloride Lvl) 103 98-110 [facility]2019-01-18 15:06:00 Test Item Value Reference Range Interpretation Comments Calcium Lvl (test code = Calcium Lvl) 9.4 8.6-10.2 [facility] HospitalDupnirpPTCDSWOUBD2116-62-43 15:06:00 Test Item Value Reference Range Interpretation Comments Eosinophils (test code = Eosinophils) 3.5 [facility] HospitalIycpiecERVCMUNJVL6970-16-69 15:06:00 Test Item Value Reference Range Interpretation Comments Basophils (test code = Basophils) 0.7 [facility] HospitalVzedmtzBJFMHPYLXU6283-40-26 15:06:00 Test Item Value Reference Range Interpretation Comments Monocytes (test code = Monocytes) 6.5 [facility] HospitalXyqnztjLFJMASLGDP9491-47-99 15:06:00 Test Item Value Reference Range Interpretation Comments MCHC (test code = MCHC) 33.3 32.0-36.0 [facility] HospitalLivchjvBHJHFMGCFR5225-34-90 15:06:00 Test Item Value Reference Range Interpretation Comments MCH (test code = MCH) 27.3 pg 27.0-33.0 [facility] HospitalJcdhlwrGMXVLWPWYH5034-97-70 15:06:00 Test Item Value Reference Range Interpretation Comments RDW (test code = RDW) 14.4 11.0-15.0 [facility] HospitalUougpobQBQVYVIEVR3559-80-58 15:06:00 Test Item Value Reference Range Interpretation Comments Platelet (test code = Platelet) 234 140-400 [facility] HospitalNbvzobbKLLJUEYJOM3515-11-31 15:06:00 Test Item Value Reference Range Interpretation Comments Neutrophils # (test code = Neutrophils 7137 3467-6720 #) [facility] HospitalZtqnrkaUDEAYVAEUZ4931-56-66 15:06:00 Test Item Value Reference Range Interpretation Comments Lymphocytes # (test code = Lymphocytes 2775 850-3900 #) [facility] HospitalAvcduzrMZOMAOZVEN9813-92-00 15:06:00 Test Item Value Reference Range Interpretation Comments Monocytes # (test code = Monocytes #) 722 200-950 [facility] HospitalIkvmwxzIBNTEQXTGY0090-27-00 15:06:00 Test Item Value Reference Range Interpretation Comments MPV (test code = MPV) 11.5 7.5-12.5 [facility] HospitalVgzugmePBRSRQMIYX5700-61-82 15:06:00 Test Item Value Reference Range Interpretation Comments Eosinophils # (test code = Eosinophils 389 15-500 #) [facility] HospitalDsxtbbnAFBMKYDHBD2514-23-93 15:06:00 Test Item Value Reference Range Interpretation Comments Basophils # (test code 78 See_Comment [Aut omated message] The = Basophils #) system which generated this result tra nsmitted reference range : <=200. The reference r may was not used to int erpret this result as normal/abnormal . [facility] HospitalNepbfgsYFIYOYONWQ2456-21-72 15:06:00 Test Item Value Reference Range Interpretation Comments WBC X 10x3 (test code = WBC X 10x3) 11.1 3.8-10.8 [facility] HospitalDjuwjdvMUOGPOYGCX2105-35-04 15:06:00 Test Item Value Reference Range Interpretation Comments Lymphocytes (test code = Lymphocytes) 25.0 [facility] HospitalNyzsidaBTOLGNRKWX0417-50-30 15:06:00 Test Item Value Reference Range Interpretation Comments Segs (test code = Segs) 64.3 [facility] HospitalGtxlylqWAEAIHMOLY8153-16-00 15:06:00 Test Item Value Reference Range Interpretation Comments Hgb (test code = Hgb) 14.1 11.7-15.5 [facility] HospitalTvpvunuWQYYODQROP3096-32-84 15:06:00 Test Item Value Reference Range Interpretation Comments RBC X 10x6 (test code = RBC X 10x6) 5.16 3.80-5.10 [facility]NuhvptcREFMFBDIJF9546-62-66 15:06:00 Test Item Value Reference Range Interpretation Comments MCV (test code = MCV) 82.2 80.0-100.0 [facility] SurgeryXpfoclnFQGEZUYJOC4753-96-56 15:06:00 Test Item Value Reference Range Interpretation Comments Hct (test code = Hct) 42.4 35.0-45.0 [facility] CampusJvqidzgDZWCJFQJAP2709-96-67 15:06:00 Test Item Value Reference Range Interpretation Comments Lamotrigine Lvl (test code = 10.2 4.0-18.0 Lamotrigine Lvl) [facility]2019-01-18 15:06:00 Test Item Value Reference Range Interpretation Comments BUN (test code = BUN) 12 06-21 [facility]2019-01-18 15:06:00 Test Item Value Reference Range Interpretation Comments Glucose Lvl (test code = Glucose Lvl) 57 65-99 [facility]2019-01-18 15:06:00 Test Item Value Reference Range Interpretation Comments ALANINE AMINOTRANSFERASE (test code = 12 6-29 ALANINE AMINOTRANSFERASE) [facility]2019-01-18 15:06:00 Test Item Value Reference Range Interpretation Comments ASPARTATE TRANSAMINASE (test code = 11 10-30 ASPARTATE TRANSAMINASE) [facility]2019-01-18 15:06:00 Test Item Value Reference Range Interpretation Comments BUN (test code = BUN) 12 06-21 [facility]2019-01-18 15:06:00 Test Item Value Reference Range Interpretation Comments Glucose Lvl (test code = Glucose Lvl) 57 65-99 [facility]2019-01-18 15:06:00 Test Item Value Reference Range Interpretation Comments ALANINE AMINOTRANSFERASE (test code = 12 6-29 ALANINE AMINOTRANSFERASE) [facility]2019-01-18 15:06:00 Test Item Value Reference Range Interpretation Comments ASPARTATE TRANSAMINASE (test code = 11 10-30 ASPARTATE TRANSAMINASE) [facility]2019-01-18 15:06:00 Test Item Value Reference Range Interpretation Comments CO2 (test code = CO2) 29 20-32 [facility]2019-01-18 15:06:00 Test Item Value Reference Range Interpretation Comments Total Protein (test code = Total 7.0 6.1-8.1 Protein) [facility]2019-01-18 15:06:00 Test Item Value Reference Range Interpretation Comments Albumin Lvl (test code = Albumin Lvl) 4.3 3.6-5.1 [facility]2019-01-18 15:06:00 Test Item Value Reference Range Interpretation Comments Creatinine Lvl (test code = Creatinine 0.78 0.50-1.10 Lvl) [facility]2019-01-18 15:06:00 Test Item Value Reference Range Interpretation Comments eGFR NON-AFR. KYRGYZ (test code = 104 eGFR NON-AFR. KYRGYZ) [facility]2019-01-18 15:06:00 Test Item Value Reference Range Interpretation Comments eGFR (test code = eGFR 121 ) [facility]2019-01-18 15:06:00 Test Item Value Reference Range Interpretation Comments CO2 (test code = CO2) 29 20-32 [facility]2019-01-18 15:06:00 Test Item Value Reference Range Interpretation Comments Globulin (test code = Globulin) 2.7 1.9-3.7 [facility]2019-01-18 15:06:00 Test Item Value Reference Range Interpretation Comments A/G Ratio (test code = A/G Ratio) 1.6 1.0-2.5 [facility]2019-01-18 15:06:00 Test Item Value Reference Range Interpretation Comments Alk Phos (test code = Alk Phos) 73 33-115 [facility]2019-01-18 15:06:00 Test Item Value Reference Range Interpretation Comments Bili Total (test code = Bili Total) 0.3 0.2-1.2 [facility]2019-01-18 15:06:00 Test Item Value Reference Range Interpretation Comments Sodium Lvl (test code = Sodium Lvl) 140 135-146 [facility]2019-01-18 15:06:00 Test Item Value Reference Range Interpretation Comments B/C Ratio (test code = B/C NOT APPLICABLE 6-22 Ratio) [facility]2019-01-18 15:06:00 Test Item Value Reference Range Interpretation Comments Potassium Lvl (test code = Potassium 4.0 3.5-5.3 Lvl) [facility]2019-01-18 15:06:00 Test Item Value Reference Range Interpretation Comments Chloride Lvl (test code = Chloride Lvl) 103 98-110 [facility]2019-01-18 15:06:00 Test Item Value Reference Range Interpretation Comments Calcium Lvl (test code = Calcium Lvl) 9.4 8.6-10.2 [facility]JzizrxaTCOKJZBHCP0501-00-13 15:06:00 Test Item Value Reference Range Interpretation Comments Eosinophils (test code = Eosinophils) 3.5 [facility]2019-01-18 15:06:00 Test Item Value Reference Range Interpretation Comments Total Protein (test code = Total 7.0 6.1-8.1 Protein) [facility] HospitalTibjmoxAESJXFSJRM0474-01-08 15:06:00 Test Item Value Reference Range Interpretation Comments Basophils (test code = Basophils) 0.7 [facility] HospitalJxndlxqIWYDDCKTRN9693-28-50 15:06:00 Test Item Value Reference Range Interpretation Comments Monocytes (test code = Monocytes) 6.5 [facility] HospitalYrvjlbrFEDDWHZHOJ4433-81-73 15:06:00 Test Item Value Reference Range Interpretation Comments MCHC (test code = MCHC) 33.3 32.0-36.0 [facility] HospitalTdlhqmiEPNKGUGACP9262-44-08 15:06:00 Test Item Value Reference Range Interpretation Comments MCH (test code = MCH) 27.3 pg 27.0-33.0 [facility] HospitalGbzpfsaJEPXRQABKK4182-67-75 15:06:00 Test Item Value Reference Range Interpretation Comments RDW (test code = RDW) 14.4 11.0-15.0 [facility] HospitalNazrungTFKNBXBWTP8151-27-82 15:06:00 Test Item Value Reference Range Interpretation Comments Platelet (test code = Platelet) 234 140-400 [facility] HospitalAagqhmgLNPGYYEFFP3070-53-00 15:06:00 Test Item Value Reference Range Interpretation Comments Neutrophils # (test code = Neutrophils 6277 9385-1381 #) [facility] HospitalMuygaoqNIZNJCFBXF4435-76-50 15:06:00 Test Item Value Reference Range Interpretation Comments Lymphocytes # (test code = Lymphocytes 0093 752-1100 #) [facility] HospitalUnqpimlEYQZZMOWZK6712-43-16 15:06:00 Test Item Value Reference Range Interpretation Comments Monocytes # (test code = Monocytes #) 722 200-950 [facility] HospitalHbifdubMVWQPNFZKV2286-99-29 15:06:00 Test Item Value Reference Range Interpretation Comments MPV (test code = MPV) 11.5 7.5-12.5 [facility] [id number] 15:06:00 Test Item Value Reference Range Interpretation Comments Albumin Lvl (test code = Albumin Lvl) 4.3 3.6-5.1 [facility] HospitalMnbvpprKDZWUMWQCF0503-44-83 15:06:00 Test Item Value Reference Range Interpretation Comments Eosinophils # (test code = Eosinophils 389 15-500 #) [facility] HospitalScwxexhCTBBLSSKGF6065-28-17 15:06:00 Test Item Value Reference Range Interpretation Comments Basophils # (test code = Basophils #) 78 <=200 [facility] HospitalYilplmmMGDBOYGCHF5748-80-13 15:06:00 Test Item Value Reference Range Interpretation Comments WBC X 10x3 (test code = WBC X 10x3) 11.1 3.8-10.8 [facility] HospitalGppocjoONLZPTYOUQ0487-29-45 15:06:00 Test Item Value Reference Range Interpretation Comments Lymphocytes (test code = Lymphocytes) 25.0 [facility] HospitalXyruilaKWSSRABVLN3221-51-13 15:06:00 Test Item Value Reference Range Interpretation Comments Segs (test code = Segs) 64.3 [facility] HospitalApcmownAMJYNGWFFM3391-42-24 15:06:00 Test Item Value Reference Range Interpretation Comments Hgb (test code = Hgb) 14.1 11.7-15.5 [facility] HospitalTrvsopiVZSSIYUYGA8189-86-21 15:06:00 Test Item Value Reference Range Interpretation Comments RBC X 10x6 (test code = RBC X 10x6) 5.16 3.80-5.10 [facility] HospitalLfzpkfiAXXWHDQNFJ8093-13-85 15:06:00 Test Item Value Reference Range Interpretation Comments MCV (test code = MCV) 82.2 80.0-100.0 [facility] HospitalCwaxtviQQBIHIBVCY9235-15-16 15:06:00 Test Item Value Reference Range Interpretation Comments Hct (test code = Hct) 42.4 35.0-45.0 [facility]YjsvfrjWTQKJIIMZX7332-47-78 15:06:00 Test Item Value Reference Range Interpretation Comments Lamotrigine Lvl (test code = 10.2 4.0-18.0 Lamotrigine Lvl) [facility]2019-01-18 15:06:00 Test Item Value Reference Range Interpretation Comments Creatinine Lvl (test code = Creatinine 0.78 0.50-1.10 Lvl) [facility]2019-01-18 15:06:00 Test Item Value Reference Range Interpretation Comments eGFR NON-AFR. KYRGYZ (test code = 104 eGFR NON-AFR. KYRGYZ) [facility]2019-01-18 15:06:00 Test Item Value Reference Range Interpretation Comments eGFR (test code = eGFR 121 ) [facility]2019-01-18 15:06:00 Test Item Value Reference Range Interpretation Comments Globulin (test code = Globulin) 2.7 1.9-3.7 [facility]2019-01-18 15:06:00 Test Item Value Reference Range Interpretation Comments A/G Ratio (test code = A/G Ratio) 1.6 1.0-2.5 [facility]2019-01-18 15:06:00 Test Item Value Reference Range Interpretation Comments Alk Phos (test code = Alk Phos) 73 33-115 [facility]2019-01-18 15:06:00 Test Item Value Reference Range Interpretation Comments Bili Total (test code = Bili Total) 0.3 0.2-1.2 [facility]2019-01-18 15:06:00 Test Item Value Reference Range Interpretation Comments Sodium Lvl (test code = Sodium Lvl) 140 135-146 [facility]2019-01-18 15:06:00 Test Item Value Reference Range Interpretation Comments B/C Ratio (test code = B/C NOT APPLICABLE 6-22 Ratio) [facility]2019-01-18 15:06:00 Test Item Value Reference Range Interpretation Comments Potassium Lvl (test code = Potassium 4.0 3.5-5.3 Lvl) [facility]2019-01-18 15:06:00 Test Item Value Reference Range Interpretation Comments Chloride Lvl (test code = Chloride Lvl) 103 98-110 [facility]2019-01-18 15:06:00 Test Item Value Reference Range Interpretation Comments Calcium Lvl (test code = Calcium Lvl) 9.4 8.6-10.2 [facility] HospitalRgqqonvHEINDAGHDC2734-04-33 15:06:00 Test Item Value Reference Range Interpretation Comments Eosinophils (test code = Eosinophils) 3.5 [facility] HospitalCtfpevwEPQWRKRCOI4737-26-01 15:06:00 Test Item Value Reference Range Interpretation Comments Basophils (test code = Basophils) 0.7 [facility] HospitalPmkiwyaTGXWPFTDJT1016-09-97 15:06:00 Test Item Value Reference Range Interpretation Comments Monocytes (test code = Monocytes) 6.5 [facility] HospitalLpwipuoVAXHMBELKV2960-56-95 15:06:00 Test Item Value Reference Range Interpretation Comments MCHC (test code = MCHC) 33.3 32.0-36.0 [facility] HospitalResornaIQSGSGGHAS2509-49-41 15:06:00 Test Item Value Reference Range Interpretation Comments MCH (test code = MCH) 27.3 pg 27.0-33.0 [facility] HospitalKgkwvkiWCMGQADTJP1655-55-72 15:06:00 Test Item Value Reference Range Interpretation Comments RDW (test code = RDW) 14.4 11.0-15.0 [facility] HospitalDgehxjgCGKWZPHGYB1544-54-95 15:06:00 Test Item Value Reference Range Interpretation Comments Platelet (test code = Platelet) 234 140-400 [facility] HospitalFublcedEOPQMLKGHQ1860-94-41 15:06:00 Test Item Value Reference Range Interpretation Comments Neutrophils # (test code = Neutrophils 7137 3388-3910 #) [facility] HospitalAlnkfzgXIDWDUNBYF9198-25-95 15:06:00 Test Item Value Reference Range Interpretation Comments Lymphocytes # (test code = Lymphocytes 2775 850-3900 #) [facility] HospitalGbgobcqQPSUYBEJLN5253-43-85 15:06:00 Test Item Value Reference Range Interpretation Comments Monocytes # (test code = Monocytes #) 722 200-950 [facility] HospitalPwuhksxULPNINGHYI8038-87-69 15:06:00 Test Item Value Reference Range Interpretation Comments MPV (test code = MPV) 11.5 7.5-12.5 [facility] HospitalSmttwshTLSZWNTXLZ3421-49-14 15:06:00 Test Item Value Reference Range Interpretation Comments Eosinophils # (test code = Eosinophils 389 15-500 #) [facility] HospitalKiayddkJQFFQBEQGQ1816-88-19 15:06:00 Test Item Value Reference Range Interpretation Comments Basophils # (test code 78 See_Comment [Aut omated message] The = Basophils #) system which generated this result tra nsmitted reference range : <=200. The reference r may was not used to int erpret this result as normal/abnormal . [facility] HospitalZwucmxjCVPSSCNFTO0130-07-35 15:06:00 Test Item Value Reference Range Interpretation Comments WBC X 10x3 (test code = WBC X 10x3) 11.1 3.8-10.8 [facility] HospitalFdlujqnAMSLQAXRVO6209-76-08 15:06:00 Test Item Value Reference Range Interpretation Comments Lymphocytes (test code = Lymphocytes) 25.0 [facility] HospitalEvueqxvLTVDCEQCSW8188-55-07 15:06:00 Test Item Value Reference Range Interpretation Comments Segs (test code = Segs) 64.3 [facility] HospitalIgpgnahXTOIIHIUNI9512-00-35 15:06:00 Test Item Value Reference Range Interpretation Comments Hgb (test code = Hgb) 14.1 11.7-15.5 [facility] HospitalOdqekgaFKGAMELTGU4595-28-01 15:06:00 Test Item Value Reference Range Interpretation Comments RBC X 10x6 (test code = RBC X 10x6) 5.16 3.80-5.10 [facility] HospitalOzjgllaISDHWUTAAR9487-30-45 15:06:00 Test Item Value Reference Range Interpretation Comments MCV (test code = MCV) 82.2 80.0-100.0 [facility] HospitalUzzzptsQUZRAOZEPQ4625-68-30 15:06:00 Test Item Value Reference Range Interpretation Comments Hct (test code = Hct) 42.4 35.0-45.0 [facility] CampusXonotscHUXPZZZMBD6555-22-72 15:06:00 Test Item Value Reference Range Interpretation Comments Lamotrigine Lvl (test code = 10.2 4.0-18.0 Lamotrigine Lvl) [facility]2019-01-18 15:06:00 Test Item Value Reference Range Interpretation Comments BUN (test code = BUN) 12 7-25 [facility]2019-01-18 15:06:00 Test Item Value Reference Range Interpretation Comments Glucose Lvl (test code = Glucose Lvl) 57 65-99 [facility]2019-01-18 15:06:00 Test Item Value Reference Range Interpretation Comments ALANINE AMINOTRANSFERASE (test code = 12 6-29 ALANINE AMINOTRANSFERASE) [facility]2019-01-18 15:06:00 Test Item Value Reference Range Interpretation Comments ASPARTATE TRANSAMINASE (test code = 11 10-30 ASPARTATE TRANSAMINASE) [facility]2019-01-18 15:06:00 Test Item Value Reference Range Interpretation Comments CO2 (test code = CO2) 29 20-32 [facility]2019-01-18 15:06:00 Test Item Value Reference Range Interpretation Comments Total Protein (test code = Total 7.0 6.1-8.1 Protein) [facility]2019-01-18 15:06:00 Test Item Value Reference Range Interpretation Comments Albumin Lvl (test code = Albumin Lvl) 4.3 3.6-5.1 [facility]2019-01-18 15:06:00 Test Item Value Reference Range Interpretation Comments Creatinine Lvl (test code = Creatinine 0.78 0.50-1.10 Lvl) [facility]2019-01-18 15:06:00 Test Item Value Reference Range Interpretation Comments eGFR NON-AFR. KYRGYZ (test code = 104 eGFR NON-AFR. KYRGYZ) [facility]2019-01-18 15:06:00 Test Item Value Reference Range Interpretation Comments eGFR (test code = eGFR 121 ) [facility]2019-01-18 15:06:00 Test Item Value Reference Range Interpretation Comments Globulin (test code = Globulin) 2.7 1.9-3.7 [facility]2019-01-18 15:06:00 Test Item Value Reference Range Interpretation Comments A/G Ratio (test code = A/G Ratio) 1.6 1.0-2.5 [facility]2019-01-18 15:06:00 Test Item Value Reference Range Interpretation Comments Alk Phos (test code = Alk Phos) 73 33-115 [facility]2019-01-18 15:06:00 Test Item Value Reference Range Interpretation Comments Bili Total (test code = Bili Total) 0.3 0.2-1.2 [facility]2019-01-18 15:06:00 Test Item Value Reference Range Interpretation Comments Sodium Lvl (test code = Sodium Lvl) 140 135-146 [facility]2019-01-18 15:06:00 Test Item Value Reference Range Interpretation Comments B/C Ratio (test code = B/C NOT APPLICABLE 6-22 Ratio) [facility]2019-01-18 15:06:00 Test Item Value Reference Range Interpretation Comments Potassium Lvl (test code = Potassium 4.0 3.5-5.3 Lvl) [facility]2019-01-18 15:06:00 Test Item Value Reference Range Interpretation Comments Chloride Lvl (test code = Chloride Lvl) 103 98-110 [facility]2019-01-18 15:06:00 Test Item Value Reference Range Interpretation Comments Calcium Lvl (test code = Calcium Lvl) 9.4 8.6-10.2 [facility] HospitalDcxrppaOWYMXAECMB0295-23-42 15:06:00 Test Item Value Reference Range Interpretation Comments Eosinophils (test code = Eosinophils) 3.5 [facility] HospitalXbpphubLCEJQSHAMT8885-07-07 15:06:00 Test Item Value Reference Range Interpretation Comments Basophils (test code = Basophils) 0.7 [facility] HospitalIgtcbepKXDHESIJUH7202-41-95 15:06:00 Test Item Value Reference Range Interpretation Comments Monocytes (test code = Monocytes) 6.5 [facility] HospitalXezlcmsPOQGPZMSQN9941-17-61 15:06:00 Test Item Value Reference Range Interpretation Comments MCHC (test code = MCHC) 33.3 32.0-36.0 [facility] HospitalScijefcQNKPTZCRQE5892-07-92 15:06:00 Test Item Value Reference Range Interpretation Comments MCH (test code = MCH) 27.3 pg 27.0-33.0 [facility] HospitalDnvmcdjJSDPFYHWLK5570-81-35 15:06:00 Test Item Value Reference Range Interpretation Comments RDW (test code = RDW) 14.4 11.0-15.0 [facility] HospitalKzsifilXXNGGZDXKN4511-08-76 15:06:00 Test Item Value Reference Range Interpretation Comments Platelet (test code = Platelet) 234 140-400 [facility] HospitalEpnvvlhHBBBRTDZLS1396-08-19 15:06:00 Test Item Value Reference Range Interpretation Comments Neutrophils # (test code = Neutrophils 7137 4669-1140 #) [facility] HospitalMwmjqcgHAIGTDBYBF4442-37-97 15:06:00 Test Item Value Reference Range Interpretation Comments Lymphocytes # (test code = Lymphocytes 8294 850-8900 #) [facility] HospitalPpaswpjYZTZBBZGDK6989-45-10 15:06:00 Test Item Value Reference Range Interpretation Comments Monocytes # (test code = Monocytes #) 452 200-950 [facility]
--- NOTE | 2023-10-18 10:17 | ER ---
Nurse's Notes [facility] Name: Cora Marquez Age: 33 yrs Sex: Female : 1990 Arrival Date: 10/18/2023 Time: 09:08 Bed 18 Private MD: Diagnosis: Acute upper respiratory infection, unspecified;Nausea with vomiting, unspecified Presentation: 10/18 09:32 Chief complaint: Patient states: Headache, diarrhea, congestion and runny nose for 3 nj1 days, fever today 103 along with vomiting. Family at home with flu and strep. Coronavirus screen: Vaccine status: Patient reports being unvaccinated. Ebola Screen: Patient denies travel to an Ebola-affected area in the 21 days before illness onset. Risk Assessment: Do you want to hurt yourself or someone else? Patient reports no desire to harm self or others. Onset of symptoms was October 14, 2023. 09:32 Method Of Arrival: Ambulatory [facility] 09:32 Acuity: MARYANA 3 nj 09:32 Initial Sepsis Screen: Does the patient meet any 2 criteria? No. Patient's initial [facility] sepsis screen is negative. Does the patient have a suspected source of infection? No. Patient's initial sepsis screen is negative. Historical: - Allergies: 09:34 avocado; nj1 09:34 olive extract; nj1 - PMHx: 09:34 Anxiety; Depression; epilepsy; ocd; Seizures; nj1 - PSHx: 09:34 section; tubal ligation; nj1 - Immunization history:: Client reports having NOT received the Covid vaccine. - Social history:: Smoking status: Patient reports the use of cigarette tobacco products, smokes one-half pack cigarettes per day, Reported history of juuling and/or vaping. Screenin:25 [facility] ED Fall Risk Assessment (Adult) History of falling in the last 3 months, rs5 including since admission No falls in past 3 months (0 pts) Confusion or Disorientation No (0 pts) Intoxicated or Sedated No (0 pts) Impaired Gait No (0 pts) Mobility Assist Device Used No (0 pt) Altered Elimination No (0 pt) Score/Fall Risk Level 0 - 2 = Low Risk Oriented to surroundings, Maintained a safe environment. Abuse screen: Denies threats or abuse. Nutritional screening: No deficits noted. Tuberculosis screening: No symptoms or risk factors identified. Assessment: 09:25 General: Appears in no apparent distress. comfortable, Behavior is calm, cooperative. rs5 Pain: Complains of pain in head Pain does not radiate. Pain currently is 7 out of 10 on a pain scale. Quality of pain is described as aching, Pain began 2-3 days ago. Is continuous. Neuro: Level of Consciousness is awake, alert, obeys commands, Oriented to person, place, time, situation. Cardiovascular: Heart tones S1 S2 present Capillary refill < 3 seconds is brisk Patient's skin is warm and dry. Rhythm is regular. Respiratory: Reports cough that is productive, Airway is patent Respiratory effort is even, unlabored, Respiratory pattern is regular, symmetrical, Breath sounds are clear bilaterally. GI: Abdomen is round non-distended, Bowel sounds present X 4 quads. Abd is soft and non tender X 4 quads. Patient currently denies nausea. : No signs and/or symptoms were reported regarding the genitourinary system. EENT: No signs and/or symptoms were reported regarding the EENT system. Derm: Skin is intact, Skin is pink, warm \T\ dry. Musculoskeletal: Range of motion: intact in all extremities. Vital Signs: 09:25 BP 101 / 67; Pulse 72; Resp 17; Temp 97.8(O); Pulse Ox 99% on R/A; rs5 09:32 BP 108 / 70; Pulse 63; Resp 16; Temp 97.9(O); Pulse Ox 99% ; Weight 92.08 kg; Height 5 nj1 ft. 5 in. ; Pain 7/10; 09:32 Body Mass Index 33.78 (92.08 kg, 165.1 cm) nj1 09:32 Pain Scale: Adult nj1 ED Course: 09:14 Patient arrived in ED. mg5 09:15 Andree Grey FNP [facility] jh[facility] 09:15 Nathan Landon MD is Attending Physician. jh7 09:21 Rosa Maria Herman, RAFAL is Primary Nurse. mb9 09:25 Patient has correct armband on for positive identification. Placed in gown. Bed in low rs5 position. Call light in reach. Side rails up X2. 09:34 Triage completed. nj1 09:34 Arm band placed on left wrist. nj1 09:54 SARS-COV-2 RT PCR Sent. kj1 09:54 SARS RAPID Sent. kj1 09:55 Flu Sent. kj1 09:55 Strep Sent. kj1 Administered Medications: No medications were administered Medication: 09:54 VIS not applicable for this client. rs5 Outcome: 10:16 Discharge ordered by . cali 10:38 Patient left the ED. rs5 Signatures: Ros Patrick kj1 Andree Grey FNP [employer] jh7 Rosa Maria Herman RN RN mb9 Travis Lee RN RN rs5 Leyla Cisneros RN RN nj1 Karey Nguyen mg5 Corrections: (The following items were deleted from the chart) 09:36 09:32 92.08 kg; Height 5 ft. 5 in.; BMI: 33.7; Pain 7/10, Adult; nj1 nj1 09:37 09:32 Pulse 63bpm; Resp 16bpm; Pulse Ox 99%; Temp 97.9F Oral; 92.08 kg; Height 5 ft. 5 nj1 in.; BMI: 33.7; Pain 7/10, Adult; nj1
--- NOTE | 2023-10-18 10:17 | EDPHYS ---
Physician Documentation [facility] Name: Cora Marquez Age: 33 yrs Sex: Female : 1990 Arrival Date: 10/18/2023 Time: 09:08 Bed 18 Private MD: ED Physician Nathan Landon HPI: 10/18 09:32 This 33 yrs old Female presents to ER via Ambulatory with complaints of Flu Symptoms. jh7 09:32 Onset: The symptoms/episode began/occurred 3 day(s) ago, and became worse today. jh7 Associated signs and symptoms: Pertinent positives: congestion, cough, fever, headache, sore throat. Patient reports exposure to both flu and strep at home. She reports cold symptoms for the past 3 days, but today developed a fever of 103 with nausea and vomiting. History of epilepsy.. Historical: - Allergies: 09:34 avocado; nj1 09:34 olive extract; nj1 - PMHx: 09:34 Anxiety; Depression; epilepsy; ocd; Seizures; nj1 - PSHx: 09:34 section; tubal ligation; nj1 - Immunization history:: Client reports having NOT received the Covid vaccine. - Social history:: Smoking status: Patient reports the use of cigarette tobacco products, smokes one-half pack cigarettes per day, Reported history of juuling and/or vaping. ROS: 09:32 Eyes: Negative for injury, pain, redness, and discharge, Neck: Negative for injury, jh7 pain, and swelling, Cardiovascular: Negative for chest pain, palpitations, and edema, Back: Negative for injury and pain, MS/Extremity: Negative for injury and deformity, Skin: Negative for injury, rash, and discoloration, Neuro: Negative for headache, weakness, numbness, tingling, and seizure, 09:32 Constitutional: Positive for body aches, chills, fever, malaise, 09:32 ENT: Positive for nasal discharge, sinus congestion, sore throat, 09:32 Respiratory: Positive for cough, Negative for shortness of breath, 09:32 All other systems are negative, Exam: 09:32 Constitutional: This is a well developed, well nourished patient who is awake, alert, jh7 and in no acute distress. Head/Face: Normocephalic, atraumatic. Neck: Trachea midline, no thyromegaly or masses palpated, and no cervical lymphadenopathy. Supple, full range of motion without nuchal rigidity, or vertebral point tenderness. No Meningismus. Cardiovascular: Regular rate and rhythm with a normal S1 and S2. No gallops, murmurs, or rubs. Normal PMI, no JVD. No pulse deficits. Respiratory: Lungs have equal breath sounds bilaterally, clear to auscultation and percussion. No rales, rhonchi or wheezes noted. No increased work of breathing, no retractions or nasal flaring. Abdomen/GI: Soft, non-tender, with normal bowel sounds. No distension or tympany. No guarding or rebound. No evidence of tenderness throughout. Skin: Warm, dry with normal turgor. Normal color with no rashes, no lesions, and no evidence of cellulitis. MS/ Extremity: Pulses equal, no cyanosis. Neurovascular intact. Full, normal range of motion. Neuro: Awake and alert, GCS 15, oriented to person, place, time, and situation. Motor strength 5/5 in all extremities. Sensory grossly intact. Normal gait. 09:32 ENT: Posterior pharynx: erythema, that is mild, pooling of secretions, that are mild, Vital Signs: 09:25 BP 101 / 67; Pulse 72; Resp 17; Temp 97.8(O); Pulse Ox 99% on R/A; rs5 09:32 BP 108 / 70; Pulse 63; Resp 16; Temp 97.9(O); Pulse Ox 99% ; Weight 92.08 kg; Height 5 nj1 ft. 5 in. ; Pain 7/10; 09:32 Body Mass Index 33.78 (92.08 kg, 165.1 cm) nj 09:32 Pain Scale: Adult nj1 MDM: 09:15 Patient medically screened. [facility] 10:18 Differential diagnosis: viral Infection, bacterial infection, URI, bronchitis. Data [facility] reviewed: vital signs, nurses notes. Counseling: I had a detailed discussion with the patient and/or guardian regarding the historical points, exam findings, and any diagnostic results supporting the discharge/admit diagnosis, to return to the emergency department if symptoms worsen or persist or if there are any questions or concerns that arise at home. Special discussion: I discussed with the patient/guardian that the patient's current presentation does not indicate dosing of antibiotics. They should follow-up with their primary care provider and return if the symptoms persist or progress. 10/18 09:19 Order name: Strep [facility] 10/18 09:19 Order name: Flu; Complete Time: 10:16 7 10/18 09:26 Order name: SARS-COV-2 RT PCR; Complete Time: 10:16 aa5 10/18 10:16 Order name: Throat Culture EDMS Administered Medications: No medications were administered Disposition Summary: 10/18/23 10:16 Discharge Ordered Notes: Location: Home [facility] Problem: new [facility] Symptoms: are unchanged [facility] Condition: Stable [facility] Diagnosis - Acute upper respiratory infection, unspecified [facility] - Nausea with vomiting, unspecified [facility] Followup: [facility] - With: Private Physician - When: 2 - 3 days - Reason: Recheck today's complaints Discharge Instructions: - Discharge Summary Sheet [facility] - Nausea, Adult [facility] - Upper Respiratory Infection, Adult [facility] - Viral Respiratory Infection [facility] Forms: - Medication Reconciliation Form [facility] - Thank You Letter [facility] - Patient Portal Instructions [facility] - Leadership Thank You Letter [facility] Prescriptions: - Bromfed DM 2-30-10 mg/5 mL Oral syrup - administer 10 milliliter ORAL route every 4-6 hours As needed as needed for [facility] cold symptoms; 240 milliliter; Refills: 0, Product Selection Permitted - ondansetron 4 mg Oral Tablet,disintegrating - take 1 tablet ORAL route every 4-6 hours As needed; 20 tablet; Refills: 0, [facility] Product Selection Permitted Signatures: Dispatcher [employer] Andree Hanks, LAND MEASURER [place] [address] Leyla Cisneros RN RN nj1
[2023-10-18 10:44] VITALS: O2SAT 99
[2023-10-18 10:45] VITALS: BP 108/70; TEMP 97.9
== END 2023-10-18 10:38 | disposition home or self-care (01) ==
LOC: ER 09:08
DX: J06.9 Acute upper respiratory infection, unspecified (principal); R11.2 Nausea with vomiting, unspecified; F17.210 Nicotine dependence, cigarettes, uncomplicated
CPT/HCPCS: 87070; 87081; 87635; 87804; 99283

== ENCOUNTER 2024-08-05 15:10 | Emergency (ER) | payer BC ==
--- OUTSIDE RECORDS SUMMARY | 2024-08-05 15:13 | XMS REPORT | Continuity of Care Document ---
Author Name Unknown Address [address] [place] [address] [facility] thconnect Address [address] [place] [address] Care Team Providers Care Resistor Tester Name Role Phone LatriceAntwan Attending Clinician GC_GCBZW_Ramanaa_S Attending Clinician Emerald Garay MD, Ellie Cole Attending Clinician [phone] ELLIE GARAY Attending Clinician Unava ilable [email or web address]_Ramanaa_S Admitting Clinician Emerald fleming Payers Payer Name Policy Type Policy Number Effective Date Expirati on Date Source [place] [id number] 2022 00:00:00 2024 00:00:00 BCBS 2 [id number] 2022 00:00:00 Problems Condition Name Condition Details Condition Category Status Onset Date Resolution Date Last Treatment Date Treating Clinician Comments Source Trichomona l vaginitis Trichomona l Vaginitis Problem Active 2022-11 0 00:00: 00 [facility] Candidal vulvovagin itis Candidal Vulvovagin itis Problem Active 2022-11 0- 00:00: 00 [facility] Anxiety Anxiety Problem Active 2022-11 0- 00:00: 00 [facility] Depressive disorder Depressive Disorder Problem Active 2022-11 0- 00:00: 00 [facility] 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 2022-11 0 00:00: 00 [facility] Epilepsy Epilepsy Problem Active 2022-11 0 00:00: 00 [facility] Abnormal uterine bleeding Abnormal Uterine Bleeding Problem Active 2022-11 00:00: 00 [facility] Abnormal weight gain Abnormal Weight Gain Problem Active 2022-11 0 00:00: 00 [facility] Heartburn Heartburn Problem Active 2022-11 00:00: 00 [facility] Dysuria Dysuria Problem Active 2022-11 00:00: 00 [facility] Allergies, Adverse Reactions, Alerts Allergy Name Allergy Type Status Severity Reaction(s) Onset Date Inactive Date Treating Clinician Comments Source No Known Medicati on Allergie s No Known Medicati on Allergie s Active Michaela Laguerre Social History Smoking Status Start Date Stop Date Source Tobacco smoking status 2023-12-22 15:28:09 [facility] Medications Ordered Medication Name Filled Medication Name Start Date Stop Date Current Medication? 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, Weight Michaela Laguerre Levetiracet am 500 MG Oral Tablet 2019-11 22:31: 00 Yes See Wagner moreau, TAKE 3 TABLETS BY MOUTH EVERY MORNING AND 4 TABLETS BY MOUTH EVERY EVENING, # 210 tab, 1 Refill(s), Pharmacy: [facility] #[id number], 170.18, cm, 09/25/19 13:46:00 CDT, Height, 89.545, kg, 09/25/19 13:46:00 CDT, Weight Michaela Laguerre Levetiracet am 500 MG Oral Tablet 2018-11 19:17: 07 Yes See Wagner moreau, TAKE 3 TABLETS BY MOUTH EVERY MORNING AND 4 TABLETS EVERY EVENING, # 210 tab, 5 Refill(s), Pharmacy: [facility] #[id number] Michaela Laguerre lamotrigine 200 MG Oral Tablet 2018-11 19:17: 03 Yes = 1 tab, PO, BID, # 60 tab, 5 Refill(s), Pharmacy: [facility] #[id number] Michaela Laguerre Levetiracet am 500 MG Oral Tablet 12-20 15:09: 57 Yes See Instructio ns, TAKE 3 TABLETS BY MOUTH EVERY MORNING AND 4 TABLETS BY MOUTH EVERY EVENING, # 210 tab, 6 Refill(s), Pharmacy: [facility] [id number] Michaela Laguerre lamotrigine 200 MG Oral Tablet 12-20 15:09: 54 Yes See Instructio ns, TAKE 1 TABLET BY MOUTH TWICE DAILY, # 60 tab, 7 Refill(s), Pharmacy: [facility] [id number] Michaela Laguerre Levetiracet am 500 MG Oral Tablet 2017-11 00:39: 37 No See Instructio ns, # 210 tab, TAKE 3 TABLETS BY MOUTH EVERY MORNING AND 4 TABLETS BY MOUTH EVERY EVENING, Pharmacy: [facility] [id number] Michaela Laguerre Levetiracet am 500 MG Oral Tablet 2017-11 23:43: 51 No See Instructio ns, # 210 tab, Refill(s) 1, TAKE 3 TABLETS BY MOUTH EVERY MORNING AND 4 TABLETS BY MOUTH EVERY EVENING, Pharmacy: [facility] [id number] Michaela Laguerre lamotrigine 200 MG Oral Tablet 2017-11 23:43: 51 No See Instructio prieto, # 214 tab, Refill(s) 1, TAKE 1 TABLET BY MOUTH TWICE DAILY, Pharmacy: [facility] [id number] Michaela Laguerre escitalopra m 20 mg tablet TAKE 1/2 TABLET BY MOUTH DAILY escitalopra m 20 mg tablet TAKE 1/2 TABLET BY MOUTH DAILY No escitalopr am 20 mg tablet TAKE 1/2 TABLET BY MOUTH DAILY [facility] lamotrigine 200 mg tablet TAKE 1 TABLET BY MOUTH TWICE DAILY lamotrigine 200 mg tablet TAKE 1 TABLET BY MOUTH TWICE DAILY No lamotrigin e 200 mg tablet TAKE 1 TABLET BY MOUTH TWICE DAILY [facility] levetiracet am 500 mg tablet TAKE 3 TABLETS BY MOUTH EVERY MORNING AND 4 TABLETS EVERY EVENING levetiracet am 500 mg tablet TAKE 3 TABLETS BY MOUTH EVERY MORNING AND 4 TABLETS EVERY EVENING No levetirace veronica 500 mg tablet TAKE 3 TABLETS BY MOUTH EVERY MORNING AND 4 TABLETS EVERY EVENING [facility] Vital Signs Vital Name Observation Time Observation Value Comments S ource BMI (Body Mass Index) 2024-02-24 00:00:00 33.9 kg/m2 [facility] Height 2024-02-24 00:00:00 65 [in_i] [facility] BP Systolic 2024-02-24 00:00:00 104 mm[Hg] [facility] Body Weight 2024-02-24 00:00:00 204 [lb_av] [facility] BP Diastolic 2024-02-24 00:00:00 63 mm[Hg] [facility] Height 2023-12-22 15:26:00 5 [ft_i] [facility] Systolic (mm Hg) 2023-12-22 15:26:00 [facility] Diastolic (mm Hg) 2023-12-22 15:26:00 [facility] Heart Rate 2023-12-22 15:26:00 [facility] Weight 2023-12-22 15:26:00 [facility] BMI Calculated 2023-12-22 15:26:00 [facility] Systolic (mm Hg) 2022-12-10 20:37:00 [facility] Diastolic (mm Hg) 2022-12-10 20:37:00 [facility] Heart Rate 2022-12-10 20:37:00 [facility] Height 2022-12-10 20:37:00 5 [ft_i] [facility] Weight 2022-12-10 20:37:00 [facility] BMI Calculated 2022-12-10 20:37:00 [facility] Weight 2021-08-07 15:53:00 [facility] BMI Calculated 2021-08-07 15:53:00 [facility] Systolic (mm Hg) 2021-08-07 15:53:00 [facility] Diastolic (mm Hg) 2021-08-07 15:53:00 [facility] Heart Rate 2021-08-07 15:53:00 [facility] Respitory Rate 2021-08-07 15:53:00 [facility] Height 2021-08-07 15:53:00 167.64 cm [facility] Systolic (mm Hg) 2020-11-07 20:11:00 [facility] Diastolic (mm Hg) 2020-11-07 20:11:00 [facility] Heart Rate 2020-11-07 20:11:00 [facility] Respitory Rate 2020-11-07 20:11:00 [facility] Height 2020-11-07 20:11:00 165.1 cm [facility] Weight 2020-11-07 20:11:00 [facility] BMI Calculated 2020-11-07 20:11:00 [facility] Systolic (mm Hg) 2019-09-25 18:39:00 [facility] Diastolic (mm Hg) 2019-09-25 18:39:00 [facility] Heart Rate 2019-09-25 18:39:00 [facility] Respitory Rate 2019-09-25 18:39:00 [facility] Height 2019-09-25 18:39:00 170.18 cm [facility] Weight 2019-09-25 18:39:00 [facility] BMI Calculated 2019-09-25 18:39:00 [facility] Heart Rate 2018-12-20 14:55:00 [facility] Systolic (mm Hg) 2018-12-20 14:55:00 [facility] Diastolic (mm Hg) 2018-12-20 14:55:00 [facility] Weight 2018-12-20 14:55:00 [facility] BMI Calculated 2018-12-20 14:55:00 [facility] Height 2018-12-20 14:55:00 165.1 cm [facility] Procedures Procedure Date / Time Performed Performing Clinicia n Source Hysteroscopy (Scope of Uterus) 2023-11-17 06:00:00 [facility] Hysteroscopy Biopsy 2023-11-11 00:00:00 [facility] Transvaginal Us Non-ob 2023-09-30 00:00:00 [facility] Tubal Ligation 2014-11-28 00:00:00 [facility] Section 2014-11-28 00:00:00 [facility] 2011-11-28 00:00:00 [facility] Medical Plan of Care Planned Activity Planned Date Details Comments Source Diagnostic Test Pending 2024-02-24 00:00:00 pap, LB + HPV [code = pap, LB + HPV] [facility] Future Appointment 2025-02-25 09:45:00 Karey rao, [address], [place] [address] [facility] Medical Encounters Start Date/Time End Date/Time Encounter Type Admission Type Attending [facility] Care Facility Care Department Encounter ID Source 2024-02-24 00:00:00 2024-02-24 00:00:00 Karey Camacho PA: [address], [place] [address] , Ph. [facility] - GC_GCBZW_La cori Patrick* [id number] [facility] 2023-12-22 09:15:00 2023-12-22 23:59:59 Outpatient Antwan Pollard MHMISCHER MHMISCHER [id number] 2023-12-13 09:00:00 2023-12-13 09:00:00 Outpatient YVES MARINELLI [id number] [facility] Laguerre 2023-12-10 00:00:00 2023-12-10 00:00:00 Outpatient GC_GCBZW_Ka diyala_S PRIV PRIV [id number] [facility] 2023-11-18 00:00:00 2023-11-18 00:00:00 Outpatient GC_GCBZW_Ka diyala_S PRIV PRIV [id number] [facility] 2023-10-31 00:00:00 2023-10-31 00:00:00 Outpatient GC_GCBZW_Ka diyala_S PRIV PRIV [id number] [facility] 2023-10-07 00:00:00 2023-10-07 00:00:00 Outpatient GC_GCBZW_Ka diyala_S PRIV PRIV [id number] [facility] 2023-10-05 00:00:00 2023-10-05 00:00:00 Outpatient GC_GCBZW_Ka diyala_S PRIV PRIV [id number] [facility] 2023-09-30 00:00:00 2023-09-30 00:00:00 Outpatient GC_GCBZW_Ka diyala_S PRIV PRIV [id number] [facility] 2023-09-21 00:00:00 2023-09-21 00:00:00 Outpatient GC_GCBZW_Ka diyala_S PRIV PRIV [id number] [facility] 2023-09-21 00:00:00 2023-09-21 00:00:00 Outpatient GC_GCBZW_Ka diyala_S PRIV PRIV [id number] [facility] 2023-09-21 00:00:00 2023-09-21 00:00:00 Outpatient GC_GCBZW_Ka diyala_S PRIV PRIV [id number] [facility] 2023-09-20 00:00:00 2023-09-20 00:00:00 Outpatient GC_GCBZW_Ka diyala_S PRIV PRIV [id number] [facility] 2022-12-10 20:30:00 2022-12-11 05:59:59 Outpatient MH[facility] [place] [id number] [facility] 2022-08-13 14:15:00 2022-08-13 14:15:00 Ambulatory Pre-Reg nullFlavo r [facility] [place] [id number] [facility] [place] 2022-05-06 10:30:00 2022-05-06 11:00:00 Office Visit Ellie Garay [place] [id number] Becky Jean 2022-05-06 00:00:00 2022-05-06 00:00:00 Outpatient ELLIE GARAY [id number] Becky Jean 2021-08-07 16:00:00 2021-08-08 04:59:59 Outpatient nullFlavo r [facility] [place] [id number] [facility] 2020-11-07 19:45:00 2020-11-08 05:59:59 Outpatient nullFlavo r [facility] [place] [id number] [facility] Lag[facility] 2020-09-09 14:15:00 2020-09-09 14:15:00 Ambulatory Pre-Reg nullFlavo r [facility] [place] [id number] [facility] 2020-06-17 19:00:00 2020-06-17 19:00:00 Ambulatory Pre-Reg nullFlavo r [facility] [place] [id number] [facility] sams[facility] Lag[facility] 2020-06-17 19:00:00 2020-06-17 19:00:00 Ambulatory Pre-Reg nullFlavo r [facility] [place] [id number] Michaela Laguerre 2019-12-28 20:20:23 2019-12-30 05:59:59 Outside Medical Records nullFlavo r [facility] [place] [id number] Michaela Laguerre 2019-09-25 19:15:00 2019-09-26 04:59:59 Outpatient nullFlavo r [facility] [place] [id number] Michaela Laguerre 2019-08-17 16:45:00 2019-08-17 16:45:00 Ambulatory Pre-Reg nullFlavo r [facility] [place] [id number] Michaela Laguerre 2019-06-19 18:00:00 2019-06-19 18:00:00 Ambulatory Pre-Reg nullFlavo r [facility] [place] [id number] Michaela Laguerre 2018-12-20 14:45:00 2018-12-21 05:59:59 Outpatient nullFlavo r [facility] [place] [id number] Michaela Laguerre 2018-12-14 19:00:00 2018-12-14 19:00:00 Ambulatory Pre-Reg nullFlavo r [facility] [place] [id number] Michaela Laguerre 2018-06-08 13:45:00 2018-06-08 13:45:00 Outpatient MHIE MHIE [id number] Michaela Laguerre Results Test Description Test Time Test Comments Results Result Co mments Source [id number] 15:06:00* Test Item Value Reference Range Interpretation Comme nts Eosinophils (test code = Eosinophils) 3.5 [id number] 15:06:00* Test Item Value Reference Range Interpretation Comme nts Lamotrigine Lvl (test code = Lamotrigine Lvl) 10.2 4.0-18.0 [facility]
--- NOTE | 2024-08-05 15:24 | EDPHYS ---
Physician Documentation [facility] Name: Cora Marquez Age: 34 yrs Sex: Female : 1990 Arrival Date: 08/05/2024 Time: 15:10 Bed IW1 Private MD: ED Physician Brandyn Kearns HPI: 08/05 15:22 This 34 yrs old Female presents to ER via Unassigned with complaints of Toothache. kb 15:22 Pt is a 34 year old female who presents for tooth pain to left lower jaw that started kb at 0400. Denies fever. States she has been taking tylenol without relief. . 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 - Infectious Disease History:: Denies. - Social history:: Smoking status: Patient reports the use of cigarette tobacco products, smokes one-half pack cigarettes per day, Reported history of juuling and/or vaping. Patient/guardian denies using alcohol. ROS: 15:22 Constitutional: As per HPI kb Exam: 15:22 Constitutional: This is a well developed, well nourished patient who is awake, alert, kb and in no acute distress. Head/Face: Normocephalic, atraumatic. ENT: Moist Mucous membranes Cardiovascular: Regular rate Respiratory: Respirations even and unlabored. No increased work of breathing. Talking in full sentences Abdomen/GI: Soft, non-tender. No distention Skin: Warm, dry with normal turgor. Normal color. MS/ Extremity: Pulses equal, no cyanosis. Neurovascular intact. Full, normal range of motion. Neuro: Awake and alert, GCS 15, oriented to person, place, time, and situation. Moves all extremities. Normal gait. 15:22 ENT: Dental exam: gum swelling, that is mild, specifically in the lower left second molar (#18), pain, that is moderate, specifically in the lower left second molar (#18), Vital Signs: 15:36 BP 123 / 78; Pulse 61; Resp 18; Temp 98.5; Pulse Ox 99% on R/A; Weight 95.25 kg; Height tm6 5 ft. 6 in. ; Pain 10/10; 15:36 Body Mass Index 33.89 (95.25 kg, 167.64 cm) tm6 15:36 Pain Scale: Adult tm6 MDM: 15:16 Patient medically screened. kb 15:22 Differential diagnosis: dental caries, gingivitis, dental abscess, pericoronitis, kb aphthous ulcers. Data reviewed: vital signs, nurses notes. Counseling: I had a detailed discussion with the patient and/or guardian regarding the historical points, exam findings, and any diagnostic results supporting the discharge/admit diagnosis, the need for outpatient follow up, a family practitioner, to return to the emergency department if symptoms worsen or persist or if there are any questions or concerns that arise at home. Administered Medications: 15:43 Drug: Ketorolac IM 30 mg IM once Route: IM; Site: right deltoid; tm6 15:43 Follow up: Response: Medication administered at discharge. tm6 Disposition: 17:35 Co-signature as Attending Physician, Brandyn Kearns MD I reviewed the patient's care rt provided by the Advanced Practice Provider and agree with the diagnosis and treatment plan. Disposition Summary: 08/05/24 15:23 Discharge Ordered Notes: Location: Home kb Condition: Stable kb Diagnosis - Dental caries, unspecified - toothache kb Followup: kb - With: Emergency Department - When: As needed - Reason: Worsening of condition Followup: kb - With: Private Physician - When: 2 - 3 days - Reason: Recheck today's complaints, Continuance of care, Re-evaluation by your physician Discharge Instructions: - Discharge Summary Sheet kb - Dental Caries, Adult kb - Dental Pain, [id number] kb - Dental Abscess, [id number] kb Forms: - Medication Reconciliation Form kb - Antibiotic Education kb - Prescription Opioid Use kb - Patient Portal Instructions kb - Leadership Thank You Letter kb Prescriptions: - Augmentin 875-125 mg Oral Tablet - take 1 tablet ORAL route every 12 hours for 10 days; 20 tablet; Refills: 0, kb Product Selection Permitted - Diclofenac Sodium 75 mg Oral Tablet Sustained Release - take 1 tablet ORAL route 2 times per day; 30 tablet; Refills: 0, Product kb Selection Permitted Signatures: Shari Patrick QUENCHING MACHINE OPERATOR-C QUENCHING MACHINE OPERATOR-Ckb Brandyn Kearns MD MD rt Isabella Barlow, RAFAL RN tm6
[2024-08-05] MEDS ORDERED: KETOROLAC 30 MG/ML INJ ONE (15:33)
--- NOTE | 2024-08-05 15:44 | ER ---
Nurse's Notes [facility] Name: Cora Marquez Age: 34 yrs Sex: Female : 1990 Arrival Date: 08/05/2024 Time: 15:10 Bed IW1 Private MD: Diagnosis: Dental caries, unspecified-toothache Presentation: 08/05 15:37 Chief complaint: Patient states: toothache starting 4am this morning, on left side. tm6 Coronavirus screen: Vaccine status: Patient reports being unvaccinated. Ebola Screen: Patient negative for fever greater than or equal to 101.5 degrees Fahrenheit, and additional compatible Ebola Virus Disease symptoms Patient denies exposure to infectious person. Patient denies travel to an Ebola-affected area in the 21 days before illness onset. No symptoms or risks identified at this time. Initial Sepsis Screen: Does the patient meet any 2 criteria? No. Patient's initial sepsis screen is negative. Does the patient have a suspected source of infection? No. Patient's initial sepsis screen is negative. Risk Assessment: Do you want to hurt yourself or someone else? Patient reports no desire to harm self or others. Onset of symptoms was August 05, 2024 at 04:00. 15:37 Method Of Arrival: Ambulatory tm6 15:37 Acuity: MARYANA 4 tm6 Triage Assessment: 15:38 General: Appears in no apparent distress. Behavior is calm, cooperative. Pain: tm6 Complains of pain in lower left second molar (#18) Pain currently is 10 out of 10 on a pain scale. Quality of pain is described as aching, Pain began 1 day ago. EENT: Reports pain in lower left second molar (#18) Pain is 10 out of 10 on a pain scale. Neuro: Level of Consciousness is awake, alert, obeys commands, Oriented to person, place, time, situation. Cardiovascular: Patient's skin is warm and dry. Respiratory: Airway is patent Respiratory effort is even, unlabored, Respiratory pattern is regular, symmetrical. GI: No signs and/or symptoms were reported involving the gastrointestinal system. Abdomen is flat, non-distended. : No signs and/or symptoms were reported regarding the genitourinary system. Derm: No signs and/or symptoms reported regarding the dermatologic system. Musculoskeletal: No signs and/or symptoms reported regarding the musculoskeletal system. [employer]: 15:38 LMP 07/15/2024, unknown tm6 Historical: - Allergies: 15:38 avocado; tm6 15:38 olive extract; tm6 - PMHx: 15:38 epilepsy; Anxiety; ocd; Depression; Seizures; tm6 - PSHx: 15:38 section; tubal ligation; tm6 - Immunization history:: Client reports having NOT received the Covid vaccine. - Infectious Disease History:: Denies. - Social history:: Smoking status: Patient reports the use of cigarette tobacco products, smokes one-half pack cigarettes per day, Reported history of juuling and/or vaping. Patient/guardian denies using alcohol. Screenin:40 [facility] ED Fall Risk Assessment (Adult) History of falling in the last 3 months, tm6 including since admission No falls in past 3 months (0 pts) Confusion or Disorientation No (0 pts) Intoxicated or Sedated No (0 pts) Impaired Gait No (0 pts) Mobility Assist Device Used No (0 pt) Altered Elimination No (0 pt) Score/Fall Risk Level 0 - 2 = Low Risk Oriented to surroundings, Maintained a safe environment, Educated pt \T\ family on fall prevention, incl call for assistance when getting out of bed. Abuse screen: Denies threats or abuse. Denies injuries from another. Nutritional screening: No deficits noted. Tuberculosis screening: No symptoms or risk factors identified. Assessment: 15:40 Reassessment: see triage assessment. tm6 Vital Signs: 15:36 BP 123 / 78; Pulse 61; Resp 18; Temp 98.5; Pulse Ox 99% on R/A; Weight 95.25 kg; Height tm6 5 ft. 6 in. ; Pain 10/10; 15:36 Body Mass Index 33.89 (95.25 kg, 167.64 cm) tm6 15:36 Pain Scale: Adult tm6 ED Course: 15:14 Patient arrived in ED. mr 15:16 Sh[facility] Patrick [facility]C [facility] kb 15:16 Brandyn Kearns MD is Attending Physician. kb 15:38 Triage completed. tm6 15:38 Arm band placed on left wrist. tm6 15:40 Patient has correct armband on for positive identification. Provided Education on: use tm6 of prescription meds. 15:40 No provider procedures requiring assistance completed. Patient did not have IV access tm6 during this emergency room visit. Administered Medications: 15:43 Drug: Ketorolac IM 30 mg IM once Route: IM; Site: right deltoid; tm6 15:43 Follow up: Response: Medication administered at discharge. tm6 Medication: 15:40 VIS not applicable for this client. tm6 Outcome: 15:23 Discharge ordered by . fabien 15:40 Condition: stable tm6 15:44 Discharged to home ambulatory, tm6 15:44 Discharge instructions given to patient, Instructed on discharge instructions, follow up and referral plans. medication usage, Demonstrated understanding of instructions, follow-up care, medications, Prescriptions given X 2, 15:44 Patient left the ED. tm6 Signatures: Shari Patrick, ROXANA-C BATTERY TECHNICIAN-Rosa Maria Saini, Isabella Marquez, RN RN tm6
[2024-08-05 16:06] VITALS: BP 123/78; TEMP 98.5; O2SAT 99
== END 2024-08-05 15:44 | disposition home or self-care (01) ==
LOC: ER 15:10
DX: K02.9 Dental caries, unspecified (principal); F32.A Depression, unspecified; F41.9 Anxiety disorder, unspecified; G40.909 Epilepsy, unspecified, not intractable, without status epilepticus; F17.210 Nicotine dependence, cigarettes, uncomplicated; Z91.018 Allergy to other foods
CPT/HCPCS: 96372; 99284

== ENCOUNTER 2025-01-10 08:11 | Emergency (ER) | payer BC ==
--- OUTSIDE RECORDS SUMMARY | 2025-01-10 08:15 | XMS REPORT | Continuity of Care Document ---
Author Name Unknown Address [address] [facility] [address] [place] [address] [facility] Address [address] [facility]. [address] [place] [address] Care Team Providers Care Car Cooper Name Role Phone Pcp, Pcp Primary Care Physician Hue Rubio MA Attending Clinician Akhil Zelaya MD, Samuel Mclaughlin Attending Clinician [phone] SAMUEL SOLIS Attending Clinician Unavail able GC_GCBZW_Kadiyala_S Attending Clinician Emerald Zamora MD, Ellie Cole Attending Clinician [phone] ELLIE ZAMORA Attending Clinician Unava ilable GC_GCBZW_Kadiyala_S Admitting Clinician Emerald flemnig Payers Payer Name Policy Type Policy Number Effective Date Expirati on Date Source [place] [id number] 2022 00:00:00 2024 00:00:00 BCBS 2 [id number] 2022 00:00:00 Problems Condition Name Condition Details Condition Category Status Onset Date Resolution Date Last Treatment Date Treating Clinician Comments Source Depression Depression Disease Active 12-26 00:00: 00 Michaela Laguerre Epic 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 12-26 00:00: 00 Michaela Razo Trichomona l vaginitis Trichomona l Vaginitis Problem Active 2022-11 0-26 00:00: 00 [facility] Heartburn Heartburn Problem Active 2022-11 0-25 00:00: 00 [facility] Dysuria Dysuria Problem Active 2022-11 0-25 00:00: 00 [facility] Candidal vulvovagin itis Candidal Vulvovagin itis Problem Active 2022-11 025 00:00: 00 [facility] Anxiety Anxiety Problem Active 2022-11 0-25 00:00: 00 [facility] Depressive disorder Depressive Disorder Problem Active 2022-11 025 00:00: 00 [facility] 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 2022-11 0 00:00: 00 [facility] Epilepsy Epilepsy Problem Active 2022-11 0 00:00: 00 [facility] Abnormal uterine bleeding Abnormal Uterine Bleeding Problem Active 2022-11 0 00:00: 00 [facility] Abnormal weight gain Abnormal Weight Gain Problem Active 2022-11 0 00:00: 00 [facility] History of anxiety History of anxiety Disease Active 06-12 00:00: 00 Michaela Razo Multiparit y Multiparit y Disease Active 06-12 00:00: 00 Michaela Razo Previous delivery affecting , antepartum Previous delivery affecting , antepartum Disease Active 06-12 00:00: 00 Michaela Razo Seizure disorder during , antepartum (CMS/HCC) Seizure disorder during , antepartum (CMS/HCC) Disease Active 06-12 00:00: 00 Michaela Razo Surgery, elective Surgery, elective Disease Resolve d 915 00:00: 00 2024-12-26 00:00:00 2024-12-26 11:29:25 Michaela Razo Tobacco use disorder complicati ng , childbirth , or puerperium , antepartum Tobacco use disorder complicati ng , childbirth , or puerperium , antepartum Disease Resolve d 06-12 00:00: 00 2024-12-26 00:00:00 2024-12-26 11:29:25 [facility] Allergies, Adverse Reactions, Alerts Allergy Name Allergy Type Status Severity Reaction(s) Onset Date Inactive Date Treating Clinician Comments Source No Known Medicati on Allergie s No Known Medicati on Allergie s [facility] Social History Social Habit Start Date Stop Date Quantity Comments Source Gender identity 2024-02-19 06:07:42 Identifies as female gender (finding) [facility] Sexual orientation [facility] History of tobacco use Cigarette Smoker [facility] ASSERTION Possible [facility] Cigarettes smoked current (pack per day) - Reported 2024-12-26 00:00:00 2024-12-26 00:00:00 [facility] Cigarette pack-years 2024-12-26 00:00:00 2024-12-26 00:00:00 [facility] Alcoholic beverage intake 2024-12-26 00:00:00 2024-12-26 00:00:00 Lifetime non-drinker (finding) [facility] History of Social function 2024-12-26 00:00:00 2024-12-26 00:00:00 [facility] Smoking Status Start Date Stop Date Source Tobacco smoking status 2023-12-22 15:28:09 [facility] Medications Ordered Medication Name Filled Medication Name Start Date Stop Date Current Medication? Ordering Clinician Indication Dosage Frequency Signature (SIG) Comments Components Source lamoTRIgine (LaMICtal) 200 MG tablet lamoTRIgine (LaMICtal) 200 MG tablet 12-26 12:11: 02 12-26 00:00 :00 No 1{tbl} Q.5D Take 1 tablet by mouth in the morning and 1 tablet in the evening. [facility] lamoTRIgine (LaMICtal) 200 MG tablet lamoTRIgine (LaMICtal) 200 MG tablet 12-26 00:00: 00 12-26 23:59 :00 No 200mg Q.5D Take 1 tablet by mouth in the morning and 1 tablet in the evening. [facility] levETIRAcet am (Keppra) 500 MG tablet levETIRAcet am (Keppra) 500 MG tablet 12-26 00:00: 00 12-26 00:00 :00 Yes TAKE 3 TABLETS BY MOUTH EVERY MORNING AND TAKE 4 TABLETS BY MOUTH EVERY EVENING [facility] escitalopra m (Lexapro) 20 MG tablet escitalopra m (Lexapro) 20 MG tablet 07-16 00:00: 00 Yes 10mg QD TAKE 1/2 TABLET BY MOUTH DAILY Memoria samson Laguerre Epic lamoTRIgine 200 mg oral tablet 12-22 16:08: 00 Yes = 1 tab, PO, BID, # 60 tab, 8 Refill(s), [id number], 167.64, cm, 12/22/23 9:26:00 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, Height, 92.273, kg, 12/22/23 9:30:00 TEMPERATURE LOGGING OPERATOR, Weight Memmary Laguerre levETIRAcet am 500 mg oral tablet 12-22 16:08: 00 Yes See Instructio ns, TAKE 3 TABLETS BY MOUTH EVERY MORNING AND TAKE 4 TABLETS BY MOUTH EVERY EVENING., # 210 tab, 8 Refill(s), [id number], 167.64, cm, 12/22/23 9:26:00 TEMPERATURE LOGGING OPERATOR, Height, 92.273, kg, 12/22/23 9:30:00 TEMPERATURE LOGGING OPERATOR, Weight Memmary Laguerre escitalopra m 20 mg oral tablet 06-17 17:34: 00 Yes = 0.5 tab, PO, Daily, # 30 tab, 3 Refill(s), Pharmacy: [facility] #[id number], 167.64, cm, 12/10/22 14:52:00 TEMPERATURE LOGGING OPERATOR, Height, 97.898, kg, 12/10/22 14:52:00 TEMPERATURE LOGGING OPERATOR, Weight Memmary Laguerre levETIRAcet am 500 mg oral tablet 12-08 23:59: 00 Yes See Instructio ns, TAKE 3 TABLETS BY MOUTH EVERY MORNING AND 4 TABLETS EVERY EVENING, # 210 tab, 2 Refill(s), [id number], 167.64, cm, 08/07/21 11:05:00 CDT, Height, 93.182, kg, 08/07/21 11:05:00 CDT, Weight Memmary Laguerre lamoTRIgine 200 mg oral tablet 2021-0 9-04 19:40: 00 Yes = 1 tab, PO, BID, # 60 tab, 5 Refill(s), [id number], 167.64, cm, 08/07/21 11:05:00 CDT, Height, 93.182, kg, 08/07/21 11:05:00 CDT, Weight Memoria l Leonardo escitalopra m 20 mg oral tablet 6-14 15:01: 00 Yes See Instructio prieto, 1/2 tab PO Daily 30 day, # 30 tab, 6 Refill(s), [id number], 167.64, cm, 08/07/21 11:05:00 CDT, Height, 93.182, kg, 08/07/21 11:05:00 CDT, Weight Memoria l Leonardo escitalopra m 20 mg oral tablet 08-07 16:45: 00 Yes See Instructalana moreau, 1/2 tab PO Daily 30 day, # 30 tab, 6 Refill(s), [id number], 167.64, cm, 08/07/21 11:05:00 CDT, Height, 93.182, kg, 08/07/21 11:05:00 CDT, Weight Memoria l [facility] escitalopra m 20 mg oral tablet 2019-11 20:30: 00 Yes = 1 tab, PO, Daily, # 30 tab, 6 Refill(s), [facility] #[id number], 165.1, cm, 11/07/20 14:11:00 TEMPERATURE LOGGING OPERATOR, Height, 89.545, kg, 11/07/20 14:11:00 TEMPERATURE LOGGING OPERATOR, Weight Memoria l [facility]ade lamotrigine 200 MG Oral Tablet 2019-11 20:30: 00 Yes = 1 tab, PO, BID, # 60 tab, 5 Refill(s), [facility][id number], 165.1, cm, 11/07/20 14:11:00 TEMPERATURE LOGGING OPERATOR, Height, 89.545, kg, 11/07/20 14:11:00 TEMPERATURE LOGGING OPERATOR, Weight [facility]oria l [facility] Levetiracet am 500 MG Oral Tablet 2019-11 22:31: 00 Yes See Instructio ns, TAKE 3 TABLETS BY MOUTH EVERY MORNING AND 4 TABLETS BY MOUTH EVERY EVENING, # 210 tab, 1 Refill(s), [facility] #[id number], 170.18, cm, 09/25/19 13:46:00 CDT, Height, 89.545, kg, 09/25/19 13:46:00 CDT, Weight Michaela Laguerre Levetiracet am 500 MG Oral Tablet 2018-11 19:17: 07 Yes See Instructio ns, TAKE 3 TABLETS BY MOUTH EVERY MORNING AND 4 TABLETS EVERY EVENING, # 210 tab, 5 Refill(s), Pharmacy: [facility] #[id number] Michaela Laguerre lamotrigine 200 MG Oral Tablet 2018-11 19:17: 03 Yes = 1 tab, PO, BID, # 60 tab, 5 Refill(s), Pharmacy: [facility] #[id number] Michaela Laguerre Escitalopra m 20 MG Oral Tablet [Lexapro] 2018-11 19:17: 00 Yes 20 mg = 1 tab, PO, Daily, # 30 tab, 5 Refill(s), Pharmacy: [facility] #[id number] Michaela Laguerre Levetiracet am 500 MG Oral Tablet 12-20 15:09: 57 Yes See Instructio ns, TAKE 3 TABLETS BY MOUTH EVERY MORNING AND 4 TABLETS BY MOUTH EVERY EVENING, # 210 tab, 6 Refill(s), Pharmacy: [facility] [id number] Michaela Laguerre lamotrigine 200 MG Oral Tablet 12-20 15:09: 54 Yes See Instructio ns, TAKE 1 TABLET BY MOUTH TWICE DAILY, # 60 tab, 7 Refill(s), Pharmacy: [facility] [id number] Michaela Laguerre Levetiracet am 500 MG Oral Tablet 2017-11 23:43: 51 No See Instructio ns, # 210 tab, Refill(s) 1, TAKE 3 TABLETS BY MOUTH EVERY MORNING AND 4 TABLETS BY MOUTH EVERY EVENING, Pharmacy: [facility] [id number] Michaela Laguerre lamotrigine 200 MG Oral Tablet 2017-11 23:43: 51 No See Wagner moreau, # 214 tab, Refill(s) 1, TAKE 1 TABLET BY MOUTH TWICE DAILY, [facility] [id number] Michaela Laguerre Vital Signs Vital Name Observation Time Observation Value Comments Kali thompson Systolic blood pressure 2024-12-26 11:34:00 111 mm[Hg] [facility] Diastolic blood pressure 2024-12-26 11:34:00 72 mm[Hg] [facility] Epic Heart rate 2024-12-26 11:34:00 78 /min [facility] Epic Body temperature 2024-12-26 11:34:00 36.72 [facility] Respiratory rate 2024-12-26 11:34:00 16 /min [facility] Body height 2024-12-26 11:34:00 163.8 cm [facility] Body weight 2024-12-26 11:34:00 98.521 kg Yamil rial Leonardo Epic BMI 2024-12-26 11:34:00 36.71 kg/m2 Yamil rial Leonardo Epic Oxygen saturation in Arterial blood by Pulse oximetry 2024-12-26 11:34:00 96 /min [facility] Systolic blood pressure 2024-12-26 11:34:00 111 mm[Hg] [facility] Diastolic blood pressure 2024-12-26 11:34:00 72 mm[Hg] [facility] Heart rate 2024-12-26 11:34:00 78 /min [facility] Epic Body temperature 2024-12-26 11:34:[address] [facility] Epic Respiratory rate 2024-12-26 11:34:00 16 /min [facility] Body height 2024-12-26 11:34:00 163.8 cm Yamil rial [facility] Body weight 2024-12-26 11:34:00 98.521 kg [facility] BMI 2024-12-26 11:34:00 36.71 kg/m2 Yamil rial Leonardo Epic Oxygen saturation in Arterial blood by Pulse oximetry 2024-12-26 11:34:00 96 /min [facility] BMI (Body Mass Index) 2024-02-24 00:00:00 33.9 kg/m2 [facility] Height 2024-02-24 00:00:00 65 [in_i] [facility] BP Systolic 2024-02-24 00:00:00 104 mm[Hg] [facility] Body Weight 2024-02-24 00:00:00 204 [lb_av] [facility] BP Diastolic 2024-02-24 00:00:00 63 mm[Hg] [facility] Height 2023-12-22 15:26:00 5 [ft_i] [facility] Systolic (mm Hg) 2023-12-22 15:26:00 [facility] Diastolic (mm Hg) 2023-12-22 15:26:00 [facility] Heart Rate 2023-12-22 15:26:00 [facility] Weight 2023-12-22 15:26:00 [facility] BMI Calculated 2023-12-22 15:26:00 [facility] Systolic (mm Hg) 2022-12-10 20:37:00 [facility] Diastolic (mm Hg) 2022-12-10 20:37:00 [facility] Heart Rate 2022-12-10 20:37:00 [facility] Height 2022-12-10 20:37:00 5 [ft_i] [facility] Weight 2022-12-10 20:37:00 [facility] BMI Calculated 2022-12-10 20:37:00 [facility] Heart Rate 2021-08-07 15:53:00 [facility] Respitory Rate 2021-08-07 15:53:00 [facility] Height 2021-08-07 15:53:00 167.64 cm [facility] Weight 2021-08-07 15:53:00 [facility] BMI Calculated 2021-08-07 15:53:00 [facility] Systolic (mm Hg) 2021-08-07 15:53:00 [facility] Diastolic (mm Hg) 2021-08-07 15:53:00 [facility] Systolic (mm Hg) 2020-11-07 20:11:00 [facility] Diastolic (mm Hg) 2020-11-07 20:11:00 [facility] Heart Rate 2020-11-07 20:11:00 [facility] Respitory Rate 2020-11-07 20:11:00 [facility] Height 2020-11-07 20:11:00 165.1 cm [facility] Weight 2020-11-07 20:11:00 [facility] BMI Calculated 2020-11-07 20:11:00 [facility] Systolic (mm Hg) 2019-09-25 18:39:00 [facility] Diastolic (mm Hg) 2019-09-25 18:39:00 [facility] Heart Rate 2019-09-25 18:39:00 [facility] Respitory Rate 2019-09-25 18:39:00 [facility] Height 2019-09-25 18:39:00 170.18 cm [facility] Weight 2019-09-25 18:39:00 [facility] BMI Calculated 2019-09-25 18:39:00 [facility] Heart Rate 2018-12-20 14:55:00 [facility] Systolic (mm Hg) 2018-12-20 14:55:00 [facility] Diastolic (mm Hg) 2018-12-20 14:55:00 [facility] Weight 2018-12-20 14:55:00 [facility] BMI Calculated 2018-12-20 14:55:00 [facility] Height 2018-12-20 14:55:00 165.1 cm [facility] Procedures Procedure Date / Time Performed Performing Clinician Source Complete Blood Count w/Diff and Platelet 2024-12-26 00:00:00 [facility] Epic Comprehensive Metabolic Panel 2024-12-26 00:00:00 [facility] Epic Lamotrigine Level 2024-12-26 00:00:00 [facility] Epic Keppra (Leveitracetam) 2024-12-26 00:00:00 [facility] Epic Hysteroscopy (Scope of Uterus) 2023-11-17 06:00:00 [facility] Hysteroscopy Biopsy 2023-11-11 00:00:[facility] Non-ob 2023-09-30 00:00:00 [facility] Tubal Ligation 2014-11-28 00:00:00 [facility] Medical Section 2014-11-28 00:00:00 [facility] ia Medical Section 2011-11-28 00:00:00 [facility] Medical Plan of Care Planned Activity Planned Date Details Comments Source Diagnostic Test Pending 2024-02-24 00:00:00 pap, LB + HPV [code = pap, LB + HPV] [facility] Medical Future Appointment 2025-02-25 09:45:00 Karey rao, Carolynn Bass; [address], [place] [address] [facility] Medical Encounters Start Date/Time End Date/Time Encounter Type Admission Type Attending Clinicians [facility] Facility Care Department Encounter ID Source 2024-12-28 00:00:00 2025-01-01 09:52:28 Telephone Hue Macedo Bethany Brazoria [id number] Michaela Laguerre [facility] 2024-12-26 11:30:00 2024-12-26 12:14:54 Office Visit Samuel Solis [id number] Michaela Laguerre [facility] 2024-12-26 11:11:44 2024-12-26 12:14:54 Outpatient SAMUEL SOLIS MHEOUT MHEOUT [id number] MHEOUT 2024-02-24 00:00:00 2024-02-24 00:00:00 NUPUR Jacobs: Carolynn Bass, [address], [place] [address] , Ph. [facility] - GC_GCBZW_Giselle [facility]* [id number] [facility] Medical 2023-12-13 09:00:00 2023-12-13 09:00:00 Outpatient MHIE NICOLEIE [id number] Michaela Laguerre 2023-12-10 00:00:00 2023-12-10 00:00:00 Outpatient GC_GCBZW_Ka diyala_S PRIV PRIV [id number] [facility] 2023-11-18 00:00:00 2023-11-18 00:00:00 Outpatient GC_GCBZW_Ka diyala_S PRIV PRIV [id number] [facility] 2023-10-31 00:00:00 2023-10-31 00:00:00 Outpatient GC_GCBZW_Ka diyala_S PRIV PRIV [id number] [facility] 2023-10-07 00:00:00 2023-10-07 00:00:00 Outpatient GC_GCBZW_Ka diyala_S PRIV PRIV [id number] [facility] 2023-10-05 00:00:00 2023-10-05 00:00:00 Outpatient GC_GCBZW_Ka diyala_S PRIV PRIV [id number] [facility] 2023-09-30 00:00:00 2023-09-30 00:00:00 Outpatient GC_GCBZW_Ka diyala_S PRIV PRIV [id number] [facility] 2023-09-21 00:00:00 2023-09-21 00:00:00 Outpatient GC_GCBZW_Ka diyala_S PRIV PRIV [id number] [facility] 2023-09-21 00:00:00 2023-09-21 00:00:00 Outpatient GC_GCBZW_Ka diyala_S PRIV PRIV [id number] [facility] 2023-09-21 00:00:00 2023-09-21 00:00:00 Outpatient GC_GCBZW_Ka diyala_S PRIV PRIV [id number] [facility] 2023-09-20 00:00:00 2023-09-20 00:00:00 Outpatient GC_GCBZW_Ka diyala_S PRIV PRIV [id number] [facility] 2022-12-10 20:30:00 2022-12-11 05:59:59 Outpatient MHIE [facility] [id number] [facility] 2022-08-13 14:15:00 2022-08-13 14:15:00 Ambulatory Pre-Reg nullFlavo r [facility] [id number] Michaela Laguerre 2022-05-06 10:30:00 2022-05-06 11:00:00 Office Visit Ellie Zamora [id number] [facility] 2022-05-06 00:00:00 2022-05-06 00:00:00 Outpatient ELLIE ZAMORA BECKY [id number] [facility] 2021-08-07 16:00:00 2021-08-08 04:59:59 Outpatient nullFlavo r [facility] [id number] Michaela Laguerre 2020-11-07 19:45:00 2020-11-08 05:59:59 Outpatient nullFlavo r [facility] [id number] Michaela Laguerre 2020-09-09 14:15:00 2020-09-09 14:15:00 Ambulatory Pre-Reg nullFlavo r [facility] [id number] Michaela Laguerre 2020-06-17 19:00:00 2020-06-17 19:00:00 Ambulatory Pre-Reg nullFlavo r [facility] [id number] Michaela Laguerre 2020-06-17 19:00:00 2020-06-17 19:00:00 Ambulatory Pre-Reg nullFlavo r [facility] [id number] Michaela Laguerre 2019-12-28 20:20:23 2019-12-30 05:59:59 Outside Medical Records nullFlavo r [facility] [id number] Michaela Laguerre 2019-09-25 19:15:00 2019-09-26 04:59:59 Outpatient nullFlavo r [facility] [id number] Michaela Laguerre 2019-08-17 16:45:00 2019-08-17 16:45:00 Ambulatory Pre-Reg nullFlavo r [facility] [id number] Michaela Laguerre 2019-06-19 18:00:00 2019-06-19 18:00:00 Ambulatory Pre-Reg nullFlavo r [facility] [id number] Michaela davies [facility] 2018-12-20 14:45:00 2018-12-21 05:59:59 Outpatient nullFlavo r [facility] [id number] Michaela davies [facility] 2018-12-14 19:00:00 2018-12-14 19:00:00 Ambulatory Pre-Reg nullFlavo r [facility] [id number] Michaela davies [facility] 2018-06-08 13:45:00 2018-06-08 13:45:00 Outpatient MHIE MHIE [id number] Michaela samson [facility] Results Test Description Test Time Test Comments Results Result Co mments [facility] 15:06:00* Test Item Value Reference Range Interpretation Comme nts Eosinophils (test code = Eosinophils) 3.5 [facility]fhyboiACZECHKKQX7765-23-33 15:06:00* Test Item Value Reference Range Interpretation Comme nts Lamotrigine Lvl (test code = Lamotrigine Lvl) 10.2 4.0-18.0 [facility] Notes Date/Time Note Provider Source [facility]2-44-88 09:52:38Upcoming Encounters Health Maintenance Due Date Last Done Comments Lipid Panel 1991 Annual Physical 1994 Pneumococcal Vaccine: Pediat rics (0 to 5 Years) and At-Risk Patients (6 to 64 Years) (1 of 2 - PCV) 1997 Varicella Vaccines (1 of 2 - 13+ 2-dose series) 02/14/2004 Hepatitis B Vaccines (1 of 3 - 19+ 3-dose series) 2010 Pap Smear 02/14/2012 Cervical Cancer Screening 2021 HPV/Cotest 2021 Influenza Vaccine (#1) 2024 DTaP/Tdap/Td Vaccines (2 - T d or Tdap) 08/14/2025 08/14/2015 HIB Vaccines Aged Out No longer eligi ble based on patient's age to complete this topic HPV Vaccines Aged Out No longer eligi ble based on patient's age to complete this topic Hepatitis A Vaccines Aged Out No long er eligible based on patient's age to complete this topic IPV Vaccines Aged Out No longer eligi ble based on patient's age to complete this topic Meningococcal Vaccine Aged Out No micheline rose eligible based on patient's age to complete this topic Rotavirus Vaccines Aged Out No longer eligible based on patient's age to complete this topic [facility] Hospital[facility]obehd5420-11-24 09:52:38 [place] [id number] 16:46:05 Patient called saw her results from [employer], some were abnormal she would like to speak to you about it. 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 On LTG and Keppra. No side effects on the medication. Due for labs today. No new problems otherwise. Allergies as of 12/26/2024 (No Known Allergies) has a current medication list which includes the following prescription(s): escitalopram, lamotrigine, and levetiracetam. Vitals:12/26/24 1134 BP: 111/72 Pulse: 78 Resp: 16 Temp: 36.7 ?C (98.1 ?F) SpO2: 96% Neurological Exam Mental Status Awake and alert. Speech is normal. Cranial NervesCN II: Visual acuity is normal. CN III, IV, : Extraocular movements intact bilaterally. Pupils equal round and reactive to light bilaterally. CN VII: Full and symmetric facial movement. CN XII: Tongue midline without atrophy or fasciculations. MotorStrength is 5/5 throughout all four extremities. SensoryLight touch is normal in upper and lower extremities. Temperature is normal in upper and lower extremities. Vibration is normal in upper and lower extremities. ReflexesDeep tendon reflexes: Symmetric. GaitCasual gait is normal including stance, stride, and arm swing. Results for orders placed or performed in visit on 08/07/21 Complete Blood Count w/Diff and Platelet Collection Time: 03/19/22 2:15 PM Result Value Ref Range Basos % 0.5 % Eosinophils # 396 15 - 500 Cells/uL Monocytes # 870 200 - 950 Cells/uL MCH 28.3 27.0 - 33.0 pg Eos % 3.5 % MCV 86.6 80.0 - 100.0 fL Monocytes 7.7 % Lymphocytes # 2384 850 - 3900 Cells/uL Hct 42.8 35.0 - 45.0 % Segs # 7594 1500 - 7800 Cells/uL Hgb 14.0 11.7 - 15.5 g/dL Lymphs % 21.1 % RBC 4.94 3.80 - 5.10 M/CMM MPV 12.1 7.5 - 12.5 fL Segs % 67.2 % WBC 11.3 (H) 3.8 - 10.8 K/ul Plt Count 218 140 - 400 K/ul RDW 14.1 11.0 - 15.0 % Basophils # 57 0 - 200 Cells/uL MCHC 32.7 32.0 - 36.0 g/dL Comprehensive Metabolic Panel Collection Time: 03/19/22 2:15 PM Result Value Ref Range ALT 14 6 - 29 unit/L Chloride Lvl 108 98 - 110 mMol/L AST 11 10 - 30 unit/L Potassium Lvl 4.2 3.5 - 5.3 mMol/L Sodium Lvl 140 135 - 146 mMol/L Alkaline Phosphatase 58 31 - 125 unit/L Bilirubin Total 0.2 0.2 - 1.2 mg/dL B/C Ratio NOT APPLICABLE 6 - 22 (CALC) eGFR Amer 106 > OR = 60 mL/min/1.73m2 Albumin/Globulin Ratio 1.6 1.0 - 2.5 (CALC) Globulin 2.5 1.9 - 3.7 g/dL eGFR Non- Amer 91 > OR = 60 mL/min/1.73m2 Albumin Lvl 3.9 3.6 - 5.1 g/dL Creatinine Lvl 0.85 0.50 - 1.10 mg/dL Total Protein 6.4 6.1 - 8.1 g/dL BUN 13 7 - 25 mg/dL Calcium Lvl 9.1 8.6 - 10.2 mg/dL Glucose Lvl 89 65 - 99 mg/dL CO2 Lvl 28 20 - 32 mMol/L Keppra (Leveitracetam) Collection Time: 03/19/22 2:15 PM Result Value Ref Range Keppra Lvl 21.4 ug/ml Lamotrigine Level Collection Time: 03/19/22 2:15 PM Result Value Ref Range Lamotrigine Lvl 4.0 4.0 - 18.0 ug/ml No MRI head results found for the past 12 months Assessment & PlanDiagnoses and all orders for this visit: 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 - levETIRAcetam (Keppra) 500 MG tablet; TAKE 3 TABLETS BY MOUTH EVERY MORNING AND TAKE 4 TABLETS BY MOUTH EVERY EVENING Stable, continue present medications. Check labs. 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) Expected: 12/26/2024 (Approximate), Expires: 12/26/2025 Lamotrigine Level Lab Routine Intractabl e juvenile myoclonic epilepsy without status epilepticus (HCC) Expected: 12/26/2024 (Approximate), Expires: 12/26/2025 Keppra (Leveitracetam) Lab Routine Intra ctable juvenile myoclonic epilepsy without status epilepticus (HCC) Expected: 12/26/2024 (Approximate), Expires: 12/26/2025 Health Maintenance Due Date Last Done Comments Lipid Panel 1990 Annual Physical 1994 Pneumococcal Vaccine: Pediat rics (0 to 5 Years) and At-Risk Patients (6 to 64 Years) (1 of 2 - PCV) 1997 Varicella Vaccines (1 of 2 - 13+ 2-dose series) 02/14/2004 Hepatitis B Vaccines (1 of 3 - 19+ 3-dose series) 2010 Pap Smear 02/14/2012 Cervical Cancer Screening 2021 HPV/Cotest 2021 Influenza Vaccine (#1) 2024 DTaP/Tdap/Td Vaccines (2 - T d or Tdap) 08/14/2025 08/14/2015 HIB Vaccines Aged Out No longer eligi ble based on patient's age to complete this topic HPV Vaccines Aged Out No longer eligi ble based on patient's age to complete this topic Hepatitis A Vaccines Aged Out No long er eligible based on patient's age to complete this topic IPV Vaccines Aged Out No longer eligi ble based on patient's age to complete this topic Meningococcal Vaccine Aged Out No micheline rose eligible based on patient's age to complete this topic Rotavirus Vaccines Aged Out No longer eligible based on patient's age to complete this topic [place] [id number] 13:00:07 Diagnosis 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 On LTG and Keppra. No side effects on the medication. Due for labs today. No new problems otherwise. Allergies as of 12/26/2024 (No Known Allergies) has a current medication list which includes the following prescription(s): escitalopram, lamotrigine, and levetiracetam. Vitals:12/26/24 1134 BP: 111/72 Pulse: 78 Resp: 16 Temp: 36.7 ?C (98.1 ?F) SpO2: 96% Neurological Exam Mental Status Awake and alert. Speech is normal. Cranial NervesCN II: Visual acuity is normal. CN III, IV, : Extraocular movements intact bilaterally. Pupils equal round and reactive to light bilaterally. CN VII: Full and symmetric facial movement. CN XII: Tongue midline without atrophy or fasciculations. MotorStrength is 5/5 throughout all four extremities. SensoryLight touch is normal in upper and lower extremities. Temperature is normal in upper and lower extremities. Vibration is normal in upper and lower extremities. ReflexesDeep tendon reflexes: Symmetric. GaitCasual gait is normal including stance, stride, and arm swing. Results for orders placed or performed in visit on 08/07/21 Complete Blood Count w/Diff and Platelet Collection Time: 03/19/22 2:15 PM Result Value Ref Range Basos % 0.5 % Eosinophils # 396 15 - 500 Cells/uL Monocytes # 870 200 - 950 Cells/uL MCH 28.3 27.0 - 33.0 pg Eos % 3.5 % MCV 86.6 80.0 - 100.0 fL Monocytes 7.7 % Lymphocytes # 2384 850 - 3900 Cells/uL Hct 42.8 35.0 - 45.0 % Segs # 7594 1500 - 7800 Cells/uL Hgb 14.0 11.7 - 15.5 g/dL Lymphs % 21.1 % RBC 4.94 3.80 - 5.10 M/CMM MPV 12.1 7.5 - 12.5 fL Segs % 67.2 % WBC 11.3 (H) 3.8 - 10.8 K/ul Plt Count 218 140 - 400 K/ul RDW 14.1 11.0 - 15.0 % Basophils # 57 0 - 200 Cells/uL MCHC 32.7 32.0 - 36.0 g/dL Comprehensive Metabolic Panel Collection Time: 03/19/22 2:15 PM Result Value Ref Range ALT 14 6 - 29 unit/L Chloride Lvl 108 98 - 110 mMol/L AST 11 10 - 30 unit/L Potassium Lvl 4.2 3.5 - 5.3 mMol/L Sodium Lvl 140 135 - 146 mMol/L Alkaline Phosphatase 58 31 - 125 unit/L Bilirubin Total 0.2 0.2 - 1.2 mg/dL B/C Ratio NOT APPLICABLE - (CALC) eGFR Amer 106 > OR = 60 mL/min/1.73m2 Albumin/Globulin Ratio 1.6 1.0 - 2.5 (CALC) Globulin 2.5 1.9 - 3.7 g/dL eGFR Non- Amer 91 > OR = 60 mL/min/1.73m2 Albumin Lvl 3.9 3.6 - 5.1 g/dL Creatinine Lvl 0.85 0.50 - 1.10 mg/dL Total Protein 6.4 6.1 - 8.1 g/dL BUN 13 7 - 25 mg/dL Calcium Lvl 9.1 8.6 - 10.2 mg/dL Glucose Lvl 89 65 - 99 mg/dL CO2 Lvl 28 20 - 32 mMol/L Keppra (Leveitracetam) Collection Time: 03/19/22 2:15 PM Result Value Ref Range Keppra Lvl 21.4 ug/ml Lamotrigine Level Collection Time: 03/19/22 2:15 PM Result Value Ref Range Lamotrigine Lvl 4.0 4.0 - 18.0 ug/ml No MRI head results found for the past 12 months Assessment & PlanDiagnoses and all orders for this visit: 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 - levETIRAcetam (Keppra) 500 MG tablet; TAKE 3 TABLETS BY MOUTH EVERY MORNING AND TAKE 4 TABLETS BY MOUTH EVERY EVENING Stable, continue present medications. Check labs. 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) Expected: 12/26/2024 (Approximate), Expires: 12/26/2025 Lamotrigine Level Lab Routine Intractabl e juvenile myoclonic epilepsy without status epilepticus (HCC) Expected: 12/26/2024 (Approximate), Expires: 12/26/2025 Keppra (Leveitracetam) Lab Routine Intra ctable juvenile myoclonic epilepsy without status epilepticus (HCC) Expected: 12/26/2024 (Approximate), Expires: 12/26/2025 Health Maintenance Due Date Last Done Comments Lipid Panel 1990 Annual Physical 1994 Pneumococcal Vaccine: Pediat rics (0 to 5 Years) and At-Risk Patients (6 to 64 Years) (1 of 2 - PCV) 1997 Varicella Vaccines (1 of 2 - 13+ 2-dose series) 02/14/2004 Hepatitis B Vaccines (1 of 3 - 19+ 3-dose series) 2010 Pap Smear 02/14/2012 Cervical Cancer Screening 2021 HPV/Cotest 2021 Influenza Vaccine (#1) 2024 DTaP/Tdap/Td Vaccines (2 - T d or Tdap) 08/14/2025 08/14/2015 HIB Vaccines Aged Out No longer eligi ble based on patient's age to complete this topic HPV Vaccines Aged Out No longer eligi ble based on patient's age to complete this topic Hepatitis A Vaccines Aged Out No long er eligible based on patient's age to complete this topic IPV Vaccines Aged Out No longer eligi ble based on patient's age to complete this topic Meningococcal Vaccine Aged Out No micheline rose eligible based on patient's age to complete this topic Rotavirus Vaccines Aged Out No longer eligible based on patient's age to complete this topic [id number]:05 Diagnosis Intractable juvenile myoclon ic epilepsy without status epilepticus (HCC) - [id number] 13:00:05 [facility]
--- NOTE | 2025-01-10 08:26 | ER ---
Nurse's Notes [facility] Name: Cora Marquez Age: 34 yrs Sex: Female : 1990 Arrival Date: 01/10/2025 Time: 08:11 Bed 4 Private MD: Diagnosis: Cellulitis of left upper limb Presentation: 01/10 08:20 Chief complaint: Patient states: Rash to L arm, L trunk, low back area for 3 days. ll1 Coronavirus screen: Client denies travel out of the [place] in the last 14 days. At this time, the client does not indicate any symptoms associated with coronavirus-19. Ebola Screen: Patient denies travel to an Ebola-affected area in the 21 days before illness onset. Initial Sepsis Screen: Does the patient meet any 2 criteria? No. Patient's initial sepsis screen is negative. Does the patient have a suspected source of infection? No. Patient's initial sepsis screen is negative. Risk Assessment: Do you want to hurt yourself or someone else? Patient reports no desire to harm self or others. Onset of symptoms was January 08, 2025. 08:20 Method Of Arrival: Ambulatory 1 08:20 Acuity: MARYANA 4 ll1 Triage Assessment: 08:22 General: Appears in no apparent distress. Behavior is calm, cooperative, appropriate ll1 for age. Pain: Denies pain. Derm: Rash noted that is red, urticaria, Reports rash L arm, low back, L trunk. Historical: - Allergies: 08:14 avocado; ll1 08:14 olive extract; ll1 - PMHx: 08:14 Anxiety; Depression; epilepsy; ocd; Seizures; ll1 - PSHx: 08:14 section; tubal ligation; ll1 - Immunization history:: Adult Immunizations up to date. - Infectious Disease History:: Denies. - Social history:: Smoking status: Patient reports the use of cigarette tobacco products, smokes one-half pack cigarettes per day, Reported history of juuling and/or vaping. Screenin:43 [facility] ED Fall Risk Assessment (Adult) History of falling in the last 3 months, kc6 including since admission No falls in past 3 months (0 pts) Confusion or Disorientation No (0 pts) Intoxicated or Sedated No (0 pts) Impaired Gait No (0 pts) Mobility Assist Device Used No (0 pt) Altered Elimination No (0 pt) Score/Fall Risk Level 0 - 2 = Low Risk Oriented to surroundings, Maintained a safe environment, Educated pt \T\ family on fall prevention, incl call for assistance when getting out of bed. Abuse screen: Denies threats or abuse. Denies injuries from another. Nutritional screening: No deficits noted. Tuberculosis screening: No symptoms or risk factors identified. Assessment: 08:43 General: Appears in no apparent distress. comfortable, well groomed, well developed, kc6 Behavior is calm, cooperative, appropriate for age. Pain: Denies pain. Neuro: Level of Consciousness is awake, alert, obeys commands, Oriented to person, place, time, situation, Appropriate for age. Cardiovascular: Capillary refill < 3 seconds. Respiratory: Airway is patent Trachea midline Respiratory effort is even, unlabored, Respiratory pattern is regular, symmetrical. GI: No signs and/or symptoms were reported involving the gastrointestinal system. : No signs and/or symptoms were reported regarding the genitourinary system. EENT: No signs and/or symptoms were reported regarding the EENT system. Derm: Skin is intact, is healthy with good turgor, Skin is pink, warm \T\ dry. Rash noted that is red, raised, on left subscapular area, left mid back and left arm. Musculoskeletal: No signs and/or symptoms reported regarding the musculoskeletal system. Circulation, motion, and sensation intact. Range of motion: intact in all extremities. Vital Signs: 08:20 BP 126 / 87; Pulse 95; Resp 16; Temp 97.5; Pulse Ox 95% on R/A; Weight 97.52 kg; Height ll1 5 ft. 5 in. ; Pain 0/10; 08:20 Body Mass Index 35.78 (97.52 kg, 165.1 cm) ll1 08:20 Pain Scale: Adult ll1 ED Course: 08:13 Patient arrived in ED. mr 08:15 Arm band placed on Patient placed in an exam room, on a stretcher. ll1 08:16 Asa Freitas MD is Attending Physician. ec2 08:22 Triage completed. ll1 08:31 Melyssa Donnelly, RAFAL is Primary Nurse. kc6 08:43 Patient has correct armband on for positive identification. Bed in low position. Call kc6 light in reach. Side rails up X 1. Pulse ox on. NIBP on. Door closed. Noise minimized. Lights dimmed. Pillow given. : Patient maintains SpO2 saturation greater than 95% on room air. kc6 :44 No provider procedures requiring assistance completed. Patient did not have IV access kc6 during this emergency room visit. Administered Medications: : Drug: Clindamycin PO 450 mg PO once Route: PO; kc6 Medication: : VIS not applicable for this client. kc6 Outcome: : Discharge ordered by . ec2 : Discharged to home ambulatory, kc6 :44 Condition: good : Discharge instructions given to patient, Instructed on discharge instructions, follow up and referral plans. medication usage, Demonstrated understanding of instructions, follow-up care, medications, Prescriptions given X 1, : Patient left the ED. kc6 Signatures: Rosa Maria Munson, Edgardo Reg Angelica Rodriguez, RN RN ll1 Melyssa Donnelly RN RN kc6 Asa Freitas MD MD ec2
--- NOTE | 2025-01-10 08:26 | EDPHYS ---
Physician Documentation [facility] Name: Cora Marquez Age: 34 yrs Sex: Female : 1990 Arrival Date: 01/10/2025 Time: 08:11 Bed 4 Private MD: ED Physician Asa Freitas HPI: 01/10 08:26 This 34 yrs old Female presents to ER via Ambulatory with complaints of Rash. ec2 08:26 Patient arrives today for evaluation of a rash to the left upper extremity. Patient ec2 reports that she had noticed a rash that has progressed, reports some redness, no fevers or chills, no nausea or vomiting. Denies any new allergens.. Historical: - Allergies: 08:14 avocado; ll1 08:14 olive extract; ll1 - PMHx: 08:14 Anxiety; Depression; epilepsy; ocd; Seizures; ll1 - PSHx: 08:14 section; tubal ligation; ll1 - Immunization history:: Adult Immunizations up to date. - Infectious Disease History:: Denies. - Social history:: Smoking status: Patient reports the use of cigarette tobacco products, smokes one-half pack cigarettes per day, Reported history of juuling and/or vaping. ROS: 08:26 Constitutional: as per hpi ec2 Exam: 08:26 Constitutional: GEN: NAD Head: atraumatic Eyes: EOMI Ears: External ears are ec2 normal. CV: regular rate LUNGS: no respiratory distress ABD: non-distended SKIN: Rash noted to the left upper extremity, no crepitus appreciated, no fluctuance noted. MSK: no evidence of trauma Vital Signs: 08:20 BP 126 / 87; Pulse 95; Resp 16; Temp 97.5; Pulse Ox 95% on R/A; Weight 97.52 kg; Height ll1 5 ft. 5 in. ; Pain 0/10; 08:20 Body Mass Index 35.78 (97.52 kg, 165.1 cm) ll1 08:20 Pain Scale: Adult ll1 MDM: 08:16 Medical Screening Exam initiated ec2 08:27 Data reviewed: vital signs, nurses notes. ED course: Patient arrives today for ec2 evaluation of a rash to the left upper extremity. Examination yields skin findings as above. Suspect cellulitis. Without the patient on clindamycin. Doubt process such as lymphangitis, doubt DVT. Will start the patient antibiotics and have the patient follow-up with PCP.. Administered Medications: 08:43 Drug: Clindamycin PO 450 mg PO once Route: PO; kc6 Disposition Summary: 01/10/25 08:25 Discharge Ordered Notes: Location: Home ec2 Condition: Stable ec2 Diagnosis - Cellulitis of left upper limb ec2 Followup: ec2 - With: Private Physician - When: - Reason: Re-evaluation by your physician Discharge Instructions: - Discharge Summary Sheet ec2 - Cellulitis, Adult ec2 Forms: - Medication Reconciliation Form ec2 - Antibiotic Education ec2 - Prescription Opioid Use ec2 - Patient Portal Instructions ec2 - Leadership Thank You Letter ec2 Prescriptions: - Clindamycin HCl 150 mg Oral capsule - take 3 capsule ORAL route every 8 hours for 7 days; 63 capsule; Refills: 0, ec2 Product Selection Permitted Signatures: Angelica Rodriguez RN RN ll1 Melyssa Donnelly RN RN kc6 Asa Freitas MD MD ec2
[2025-01-10 08:50] VITALS: BP 126/87; TEMP 97.5; O2SAT 95
== END 2025-01-10 08:44 | disposition home or self-care (01) ==
LOC: ER 08:11
DX: L03.114 Cellulitis of left upper limb (principal); F17.210 Nicotine dependence, cigarettes, uncomplicated
CPT/HCPCS: 99283